=== PATIENT | male | born 1970 | race Caucasian/White ===

== ENCOUNTER 2017-06-24 11:41 | Emergency (ER) | payer SELFPAY ==
--- NOTE | 2017-06-24 11:56 | EDM.PDOC ---
ED HPI GENERAL MEDICAL PROBLEM - General Chief Complaint: Skin Complaint Stated Complaint: FROSTBITE ON FINGERS Time Seen by Provider: 06/24/17 11:47 - History of Present Illness INITIAL COMMENTS - FREE TEXT/NARRATIVE: HISTORY AND PHYSICAL: History of present illness: Patient's 46-year-old male presents with a concern of frostbite involving his fingertips bilateral hand left greater than right this insult occurred approximately 4 days prior to arrival he noticed discoloration in the form of black distally involving multiple digits of both hands he said some discomfort with this he denies other concern Review of systems: As per history of present illness and below otherwise all systems reviewed and negative. Past medical history: As per history of present illness and as reviewed below otherwise noncontributory. Surgical history: As per history of present illness and as reviewed below otherwise noncontributory. Social history: No reported history of drug or alcohol abuse. Family history: As per history of present illness and as reviewed below otherwise noncontributory. Physical exam: HEENT: Atraumatic, normocephalic, pupils reactive, negative for conjunctival pallor or scleral icterus, mucous membranes moist, throat clear, neck supple, nontender, trachea midline. Lungs: Clear to auscultation, breath sounds equal bilaterally, chest nontender. Heart: S1S2, regular, negative for clicks, rubs, or JVD. Abdomen: Soft, nondistended, nontender. Negative for masses or hepatosplenomegaly. Negative for costovertebral tenderness. Pelvis: Stable nontender. Genitourinary: Deferred. Rectal: Deferred. Extremities: Patient has black discoloration noted distal tips of fingers left and right hand primarily second third and fourth digits of both hands neurovascular exam is limited but grossly unremarkable Neuro: Awake, alert, oriented. Cranial nerves II through XII unremarkable. Cerebellum unremarkable. Motor and sensory unremarkable throughout. Exam nonfocal. Diagnostics: None Therapeutics: None Impression: #1 frostbite bilateral fingers Definitive disposition and diagnosis as appropriate pending reevaluation and review of above. ED ROS GENERAL - Review of Systems Review Of Systems: ROS reveals no pertinent complaints other than HPI. ED EXAM, SKIN/RASH Exam: See Below (See dictation) Departure - Departure Time of Disposition: 11:54 Disposition: Home, Self-Care 01 Condition: Good Clinical Impression: Frostbite - Discharge Information Referrals: PCP,None [Primary Care Provider] - Additional Instructions: The following information is given to patients seen in the emergency department who are being discharged to home. This information is to outline your options for follow-up care. We provide all patients seen in our emergency department with a follow-up referral. The need for follow-up, as well as the timing and circumstances, are variable depending upon the specifics of your emergency department visit. If you don't have a primary care physician on staff, we will provide you with a referral. We always advise you to contact your personal physician following an emergency department visit to inform them of the circumstance of the visit and for follow-up with them and/or the need for any referrals to a consulting specialist. The emergency department will also refer you to a specialist when appropriate. This referral assures that you have the opportunity for followup care with a specialist. All of these measure are taken in an effort to provide you with optimal care, which includes your followup. Under all circumstances we always encourage you to contact your private physician who remains a resource for coordinating your care. When calling for followup care, please make the office aware that this follow-up is from your recent emergency room visit. If for any reason you are refused follow-up, please contact the [facility] emergency department at and asked to speak to the emergency department charge nurse. [facility] specialty clinic-Plastics [address] [place] [phone] Follow-up hand surgery above call to schedule appointment Ultram as prescribed avoid cold exposure as discussed and return as needed as discussed
[2017-06-24] MEDS ORDERED: Diphtheria,Pertussis(Acell),Tetanus Vaccine 0.5 ML Syringe IM ONE (12:07)
== END 2017-06-24 12:19 | disposition home or self-care (01) ==
LOC: MW.ED 11:41
DX: T33.532A Superficial frostbite of left finger(s), initial encounter (principal); T33.531A Superficial frostbite of right finger(s), initial encounter; X31.XXXA Exposure to excessive natural cold, initial encounter; Y93.89 Activity, other specified; Y99.0 Civilian activity done for income or pay
CPT/HCPCS: 90471; 90715; 99283; 99283-25

== ENCOUNTER 2017-09-22 06:49 | Day surgery (SDC) | payer OTHER ==
[2017-09-22] MEDS ORDERED: Propofol 200 MG/20 ML SDV ONE (07:15)
[2017-09-22] MEDS ORDERED: Lidocaine 2% 5 ML SDV ONE (07:15)
[2017-09-22] MEDS ORDERED: fentaNYL 250 MCG/5 ML SDV ONE (07:15)
[2017-09-22] MEDS ORDERED: Midazolam 1 MG/ML 2 ML SDV ONE (07:15)
[2017-09-22] MEDS ORDERED: Ondansetron 4 MG/2 ML SDV ONE (07:15)
[2017-09-22] MEDS ORDERED: ceFAZolin/Dextrose,Iso-Osmotic 2 GM/50 ML Duplex Bag IV ONE (07:18)
[2017-09-22] MEDS ORDERED: Bupivacaine 25%/EPINEPHrine/PF 30 ML ONE (07:32)
--- NOTE | 2017-09-22 07:40 | PCM.PREANE ---
Preanesthetic Assessment - Anesthesia/Transfusion/Family Hx Anesthesia History: No Prior Anesthesia Family History of Anesthesia Reaction: No Transfusion History: No Prior Transfusion(s) Intubation History: Unknown - Review of Systems General: No Symptoms Pulmonary: No Symptoms Cardiovascular: No Symptoms Gastrointestinal: No Symptoms Neurological: No Symptoms Other: Reports: None - Physical Assessment O2 Sat by Pulse Oximetry: 98 Respiratory Rate: 18 Vital Signs: Last Vital Signs Temp 36.2 C 09/22/17 07:22 Pulse 107 H 09/22/17 07:22 Resp 18 09/22/17 07:22 BP 149/105 H 09/22/17 07:22 Pulse Ox 98 09/22/17 07:22 Height: 1.78 m Weight: 90.718 kg ASA Class: 2 Mental Status: Alert & Oriented x3 Airway Class: Mallampati = 2 Dentition: Reports: Normal Dentition, Missing Tooth/Teeth (missing 4 teeth front bottom) Thyro-Mental Finger Breadths: 3 Mouth Opening Finger Breadths: 3 ROM/Head Extension: Full Lungs: Clear to Auscultation, Normal Respiratory Effort Cardiovascular: Regular Rate, Regular Rhythm - Allergies Allergies/Adverse Reactions: Allergies Allergy/AdvReac Type Severity Reaction Status Date / Time No Known Allergies Allergy Verified 09/17/17 10:38 - Blood Blood Available: No - Anesthesia Plan Pre-Op Medication Ordered: None - Acknowledgements Anesthesia Type Planned: General Anesthesia Pt an Appropriate Candidate for the Planned Anesthesia: Yes Alternatives and Risks of Anesthesia Discussed w Pt/Guardian: Yes Pt/Guardian Understands and Agrees with Anesthesia Plan: Yes PreAnesthesia Questionnaire HEENT History: Cardiovascular History: Reports: High Cholesterol, Hypertension Other Cardiovascular History: hypertension in the past, not on medication Respiratory History: Gastrointestinal History: Reports: Other (See Below) Other Gastrointestinal History: occasional heartburn Genitourinary History: Musculoskeletal History: Reports: Arthritis Neurological History: Psychiatric History: Endocrine/Metabolic History: Reports: Other (See Below) Other Endocrine/Metabolic History: states borderline diabetic Hematologic History: Immunologic History: Oncologic (Cancer) History: Dermatologic History: Reports: Other (See Below) Other Dermatologic History: presently has left middle finger frostbite necrosis - Infectious Disease History Infectious Disease History: Reports: None - Past Surgical History Head Surgeries/Procedures: Reports: None Male Surgical History: Reports: None - SUBSTANCE USE Smoking Status *Q: Former Smoker (quit 2-3 weeks ago) Tobacco Use Within Last Twelve Months: Cigarettes Recreational Drug Use History: No - HOME MEDS Home Medications: Home Meds traMADol HCl [Tramadol HCl] 1 tab PO ASDIRECTED PRN 09/17/17 [History] - CURRENT (IN HOUSE) MEDS Current Meds: Current Medications Hydrocodone Bitart/Acetaminophen (Grover 325-5 Mg) 1 tab PO Q4H PRN PRN Reason: Pain Bupivacaine HCl/Epinephrine Bitart (Marcaine 0.25%/Epinephrine 1:200,000) 10 ml INJECT ONETIME ONE Stop: 09/22/17 08:01 Cefazolin Sodium/Dextrose 2 gm (/ Premix) 50 mls @ 100 mls/hr IV ONETIME ONE Stop: 09/22/17 08:29 Lactated Ringer's (Ringers, Lactated) 1,000 mls @ 125 mls/hr IV ASDIRECTED NOE Last Admin: 09/22/17 07:25 Dose: 125 mls/hr Discontinued Medications Cefazolin Sodium/Dextrose (Ancef) Confirm Administered Dose 2 gm IV .STK-MED ONE Stop: 09/22/17 07:19 Fentanyl (Sublimaze) Confirm Administered Dose 250 mcg .ROUTE .STK-MED ONE Stop: 09/22/17 07:16 Lidocaine (Xylocaine-Mpf 2%) Confirm Administered Dose 5 ml .ROUTE .STK-MED ONE Stop: 09/22/17 07:16 Midazolam HCl (Versed 1 Mg/Ml) Confirm Administered Dose 2 mg .ROUTE .STK-MED ONE Stop: 09/22/17 07:16 Ondansetron HCl (Zofran) Confirm Administered Dose 4 mg .ROUTE .STK-MED ONE Stop: 09/22/17 07:16 Propofol (Diprivan 20 Ml) Confirm Administered Dose 200 mg .ROUTE .STK-MED ONE Stop: 09/22/17 07:16
[2017-09-22] MEDS ORDERED: Insulin Regular, Human 100 Units/ML 10 ML Vial ONE (07:59)
[2017-09-22] MEDS ORDERED: ceFAZolin 2 GM in Premix Bag 1 BAG IV ONE (08:00)
[2017-09-22] MEDS ORDERED: Acetaminophen/HYDROcodone 325-5 MG Tab PO PRN (08:00)
[2017-09-22] MEDS ORDERED: Bupivacaine 0.25%/EPINEPHrine 1:200,000 10 ML SDV INJECT ONE (08:00)
[2017-09-22] MEDS ORDERED: Lactated Ringers 1,000 ML IV SCH (08:00)
[2017-09-22] MEDS ORDERED: fentaNYL 100 MCG/2 ML SDV IVPUSH PRN (08:37)
--- NOTE | 2017-09-22 09:14 | PCM48HPAN ---
Post Anesthesia Note - EVALUATION WITHIN 48HRS OF ANESTHETIC Vital Signs in Normal Range: Yes Patient Participated in Evaluation: Yes Respiratory Function Stable: Yes Airway Patent: Yes Cardiovascular Function Stable: Yes Hydration Status Stable: Yes Pain Control Satisfactory: Yes Nausea and Vomiting Control Satisfactory: Yes Mental Status Recovered: Yes Resp Rate: 11 - COMMENTS/OBSERVATIONS Free Text/Narrative:: no anesthesia problems
--- NOTE | 2017-09-22 15:49 | PCM.OPNOTE ---
- General Post-Op/Procedure Note Date of Surgery/Procedure: 09/22/17 Operative Procedure(s): Revision amputation left middle finger frostbite necrosis Pre Op Diagnosis: left middle finger frostbite necrosis Post-Op Diagnosis: Same Anesthesia Technique: Local, MAC Primary Surgeon: Maria Isabel Red Head Chopper: Alessandra Dolan Complications: None Condition: Good Free Text/Narrative:: Intake & Output 09/21/17 09/22/17 09/22/17 23:59 07:59 15:59 Intake Total 900 Balance 900 After surgery patient admitted to PO coffee with cream.
--- NOTE | 2017-09-27 10:35 | OR ---
SURGEON: HEIDE MOYA MD DATE OF PROCEDURE: 09/22/2017 PREOPERATIVE DIAGNOSIS: Left middle finger frostbite necrosis. POSTOPERATIVE DIAGNOSIS: Left middle finger frostbite necrosis. PROCEDURE: Revision amputation, left middle finger frostbite necrosis. SCOOP MACHINE OPERATOR: Alessandra Dolan PA-C ANESTHESIA: Local MAC. INDICATIONS: Mr. Chew is a 47-year-old gentleman with distal tip amputation for frostbite necrosis. He is also uncontrolled diabetic and hypertensive. We discussed risks and benefits of wound amputation, and he would like to proceed. We have been doing conservative management, and the risk of continued presence of the necrotic fingertip likely increases the infection risk. We discussed revision and closure. All questions were answered, and he would like to proceed. Risks were including, but not limited to bleeding, infection, damage to underlying or overlying structures, possible need for future intervention, and possible scarring. PROCEDURE IN DETAIL: After informed consent was obtained and placed on the chart, the patient was brought to the operating theater and laid in supine position. After adequate local MAC anesthesia was obtained, the area was prepped and draped, and a time- out was completed to confirm side and site. The arm was exsanguinated, and the tourniquet was insufflated to 200 mmHg. The demarcated skin was cut just proximal to the necrosis, and the distal tip was removed. The middle phalanx was rongeured to appropriate length to allow the healthy skin to close over the top of this. Flexor digitorum superficialis tendon insertion was maintained, and the extensor and flexor tendons of the distal phalanx were left in situ. The skin was then redraped, after traction neurectomies were performed bilaterally, and sutures were placed using 5-0 nylon stitches in a horizontal mattress fashion. The wound was dressed with Xeroform, fluffs, Augie, and a 2-inch Kurt wrap. The patient tolerated the procedure well. All counts and needles were correct at the end of the case. FOLLOWUP INSTRUCTIONS: The patient will see us in approximately 2 weeks, sooner if any problems, questions, or concerns. The wound will be dressed for the next 24-48 hours and will be placed with a Band-Aid after that. He will call if any issues. In addition, of note, the patient did admit, after surgery, to having had oral coffee with cream that morning prior to surgery. Fortunately, this would not affect the care of the patient, and we discussed with him the importance of full disclosure when asked questions in the future. NERI HAN /[id number]
== END 2017-09-22 09:25 | disposition home or self-care (01) ==
LOC: MW.SDS 06:49
PROVIDERS: ATTEND Plastic Surgery
DX: T34.532A Frostbite with tissue necrosis of left finger(s), initial encounter (principal); I10 Essential (primary) hypertension; E11.9 Type 2 diabetes mellitus without complications; F17.210 Nicotine dependence, cigarettes, uncomplicated; Z79.899 Other long term (current) drug therapy; X31.XXXA Exposure to excessive natural cold, initial encounter
CPT/HCPCS: 26951; 82962; 88304; 93005; J0690; J2250; J2405; J3010; J7120; J2704

== ENCOUNTER 2017-10-15 11:29 | Inpatient (IN) | payer OTHER ==
[~2017-10-15 11:29] MED LIST: Bupivacaine 0.25%/EPINEPHrine 1:200,000 10 ML SDV INJECT ONE; Bupivacaine 25%/EPINEPHrine/PF 30 ML ONE; ceFAZolin 2 GM in Premix Bag 1 BAG IV ONE
[2017-10-15] MEDS: Lactated Ringers 1,000 ML IV SCH ×2 (11:45→16:09)
[2017-10-15] MEDS ORDERED: Lidocaine 2% 5 ML SDV ONE (11:50)
[2017-10-15] MEDS ORDERED: Propofol 200 MG/20 ML SDV ONE ×2 (11:52→14:16)
[2017-10-15] MEDS ORDERED: Midazolam 1 MG/ML 2 ML SDV ONE (11:52)
[2017-10-15] MEDS ORDERED: ceFAZolin 1 GM Vial ONE (11:53)
[2017-10-15] MEDS ORDERED: Ondansetron 4 MG/2 ML SDV ONE (11:53)
[2017-10-15] MEDS ORDERED: Sodium Chloride 0.9% 20 ML ONE (11:53)
[2017-10-15] MEDS ORDERED: Ketorolac 30 MG/ML SDV ONE (11:53)
[2017-10-15] MEDS ORDERED: fentaNYL 250 MCG/5 ML SDV ONE (11:53)
--- NOTE | 2017-10-15 13:13 | PCM.PREANE ---
Preanesthetic Assessment - Anesthesia/Transfusion/Family Hx Anesthesia History: Prior Anesthesia Without Reaction Family History of Anesthesia Reaction: No Transfusion History: No Prior Transfusion(s) Intubation History: Unknown - Review of Systems General: Other (infection to L hand) Pulmonary: No Symptoms Cardiovascular: No Symptoms Gastrointestinal: No Symptoms Neurological: No Symptoms Other: Reports: None - Physical Assessment NPO Status Date: 10/14/17 NPO Status Time: 22:00 O2 Sat by Pulse Oximetry: 97 Respiratory Rate: 16 Vital Signs: Last Vital Signs Temp 97.7 F 10/15/17 11:45 Pulse 103 H 10/15/17 11:45 Resp 16 10/15/17 11:45 BP 139/92 H 10/15/17 11:45 Pulse Ox 97 10/15/17 11:45 Height: 5 ft 10 in Weight: 200 lb ASA Class: 3 Mental Status: Alert & Oriented x3 Airway Class: Mallampati = 2 Dentition: Reports: Broken Tooth/Teeth, Missing Tooth/Teeth Thyro-Mental Finger Breadths: 3 Mouth Opening Finger Breadths: 3 ROM/Head Extension: Full Lungs: Clear to Auscultation, Normal Respiratory Effort Cardiovascular: Regular Rate, Regular Rhythm - Lab Values: Laboratory Last Values POC Glucose 396 mg/dL (60-110) H 10/15/17 13:01 - Allergies Allergies/Adverse Reactions: Allergies Allergy/AdvReac Type Severity Reaction Status Date / Time No Known Allergies Allergy Verified 10/14/17 09:52 - Blood Blood Available: No Product(s) Available: None - Anesthesia Plan Free Text/Narrative:: Minimal/moderate sedation with local block per Dr. Red B - last surgery pt did not admit to having coffee with sugar just prior to surgery until after surgery was complete; pt adamantly denies any food or drink since 2200 last night - treated with 5 units IV regular insulin - will recheck in PACU Pre-Op Medication Ordered: Other (insulin - 5 units regular) - Acknowledgements Anesthesia Type Planned: MAC Pt an Appropriate Candidate for the Planned Anesthesia: Yes Alternatives and Risks of Anesthesia Discussed w Pt/Guardian: Yes Pt/Guardian Understands and Agrees with Anesthesia Plan: Yes PreAnesthesia Questionnaire HEENT History: Reports: None Cardiovascular History: Reports: High Cholesterol, Hypertension Other Cardiovascular History: hypertension in the past, not on medication Respiratory History: Gastrointestinal History: Reports: Other (See Below) Other Gastrointestinal History: occasional heartburn - denies any today Genitourinary History: Reports: None Musculoskeletal History: Reports: Arthritis Neurological History: Psychiatric History: Endocrine/Metabolic History: Reports: Diabetes, Type II (does not see a family doctor and does not check BG or take meds - has been >300 on both visits for surgery), Other (See Below) Hematologic History: Immunologic History: Oncologic (Cancer) History: Dermatologic History: Reports: Other (See Below) Other Dermatologic History: presently has infection left hand after ampuation d/ t frostbite - Infectious Disease History Infectious Disease History: Reports: None - Past Surgical History Head Surgeries/Procedures: Reports: None Male Surgical History: Reports: None Musculoskeletal Surgical History: Reports: Other (See Below) Other Musculoskeletal Surgeries/Procedures:: 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 - SUBSTANCE USE Smoking Status *Q: Former Smoker Recreational Drug Use History: No - HOME MEDS Home Medications: Home Meds Antibiotic 1 tab PO BID 10/14/17 [History] oxyCODONE 5 mg PO ASDIRECTED PRN 10/14/17 [History] - CURRENT (IN HOUSE) MEDS Current Meds: Current Medications Lactated Ringer's (Ringers, Lactated) 1,000 mls @ 125 mls/hr IV ASDIRECTED NOE Last Admin: 10/15/17 11:45 Dose: 125 mls/hr Discontinued Medications Bupivacaine HCl/Epinephrine Bitart (Marcaine 0.25%/Epinephrine 1:200,000) 10 ml INJECT ONETIME ONE Stop: 10/15/17 08:01 Cefazolin Sodium (Ancef) Confirm Administered Dose 2 gm .ROUTE .STK-MED ONE Stop: 10/15/17 11:54 Fentanyl (Sublimaze) Confirm Administered Dose 250 mcg .ROUTE .STK-MED ONE Stop: 10/15/17 11:54 Cefazolin Sodium/Dextrose 2 gm (/ Premix) 50 mls @ 100 mls/hr IV ONETIME ONE Stop: 10/15/17 08:29 Bupivacaine HCl/Epinephrine Bitart (Sensorc Mpf 0.25%-Epi 1:[id number]) Confirm Administered Dose 30 mls @ as directed .ROUTE .STK-MED ONE Stop: 10/15/17 07:25 Sodium Chloride (Normal Saline) Confirm Administered Dose 20 mls @ as directed .ROUTE .STK-MED ONE Stop: 10/15/17 11:54 Ketorolac Tromethamine (Toradol) Confirm Administered Dose 30 mg .ROUTE .STK- MED ONE Stop: 10/15/17 11:54 Lidocaine (Xylocaine-Mpf 2%) Confirm Administered Dose 5 ml .ROUTE .STK-MED ONE Stop: 10/15/17 11:51 Midazolam HCl (Versed 1 Mg/Ml) Confirm Administered Dose 2 mg .ROUTE .STK-MED ONE Stop: 10/15/17 11:53 Ondansetron HCl (Zofran) Confirm Administered Dose 4 mg .ROUTE .STK-MED ONE Stop: 10/15/17 11:54 Propofol (Diprivan 20 Ml) Confirm Administered Dose 200 mg .ROUTE .STK-MED ONE Stop: 10/15/17 11:53
[2017-10-15] MEDS ORDERED: fentaNYL 100 MCG/2 ML SDV IVPUSH PRN (14:20)
--- NOTE | 2017-10-15 14:56 | PCM.POSTAN ---
POST ANESTHESIA ASSESSMENT - MENTAL STATUS Mental Status: Alert, Oriented Free Text/Narrative:: Patient will be admitted for medical management. Probable diabetic ketoacidosis diagnosis is entertained. Stable vitals. - RESPIRATORY Respiratory Status: Respiratory Rate WNL, Airway Patent, O2 Saturation Stable - CARDIOVASCULAR CV Status: Pulse Rate WNL, Blood Pressure Stable - GASTROINTESTINAL GI Status: No Symptoms - POST OP HYDRATION Hydration Status: Adequate & Stable
[2017-10-15] MEDS ORDERED: Ondansetron 4 MG Tab.DIS PO PRN (15:04)
--- NOTE | 2017-10-15 15:08 | PCM.OPNOTE ---
- General Post-Op/Procedure Note Date of Surgery/Procedure: 10/15/17 Operative Procedure(s): incision and drainage of flexor tenosynovitis of left middle finger with left carpal tunnel release Pre Op Diagnosis: left hand finger infection tracking along tendon Post-Op Diagnosis: Same Anesthesia Technique: Local, MAC Primary Surgeon: Maria Isabel Red Complications: None Condition: Fair Free Text/Narrative:: Noncompliant patient with significantly elevated Blood sugar and dehydration - concerns for ketoacidosis and will admit for assistance from hospitalist for blood sugar control as well as IV antibiotics and rehydration.
--- NOTE | 2017-10-15 15:13 | PCM.SN ---
- Free Text/Narrative Note: H&P on chart - from [facility]
--- NOTE | 2017-10-15 15:47 | PCM.CONS ---
H&P History of Present Illness - General Date of Service: 10/15/17 Admit Problem/Dx: Admission Diagnosis/Problem Admission Diagnosis/Problem Tenosynovitis of finger, hand, or wrist - History of Present Illness Initial Comments - Free Text/Narative: 47 yo male with history of Uncontrolled NIDDM and non-adherence to treatment is admitted for Left Hand Abscess. The abscess is presumed to be caused from frostbite which the patient experienced April 2017. He states that following the frosbite he developed taylor discoloration He was admitted under plastic surgery and underwent I&D of left hand today. He has a known history of non- adherence to therapy and was found to have HbA1C of 12.5% with BG levels ranging from 300-400. Medicine has been consulted for management of Uncontrolled diabetes and hyperglycemia. Patient states his diabetes was diagnosed several years ago. He last saw a physican for this 1.5 years ago and was started on Metformin. He states he did not tolerate the side effects and therefore discontinued it on his own after a short while of being on it. Since then he has not been on any meds for his DM. He deneis ever being on insulin in the past. His associated symptoms include numbness of BL hands and feet, nocturia, blurry vision which he states occurred after he was prescribed Lyrica 1 month ago by a provider. He also admits to a history of HTN for which he was prescribed a medication which he also did not take. He has a 20 pack year smoking history but quit about 1 month ago. He denies alcohol use. He does not own a glucometer at home. Onset of Symptoms: Reports: Today Left Middle 3-Middle finger Pain Score (Numeric/FACES): 2 - Related Data Allergies/Adverse Reactions: Allergies Allergy/AdvReac Type Severity Reaction Status Date / Time No Known Allergies Allergy Verified 10/15/17 14:31 Home Medications: Home Meds Antibiotic 1 tab PO BID 10/14/17 [History] oxyCODONE 5 mg PO ASDIRECTED PRN 10/14/17 [History] Clindamycin HCl 300 mg PO Q6H #40 capsule 10/15/17 [Rx] Past Medical History HEENT History: Reports: None Cardiovascular History: Reports: High Cholesterol, Hypertension Other Cardiovascular History: hypertension in the past, not on medication Respiratory History: Gastrointestinal History: Reports: Other (See Below) Other Gastrointestinal History: occasional heartburn - denies any today Genitourinary History: Reports: None Musculoskeletal History: Reports: Arthritis Neurological History: Psychiatric History: Endocrine/Metabolic History: Reports: Diabetes, Type II (does not see a family doctor and does not check BG or take meds - has been >300 on both visits for surgery), Other (See Below) Other Endocrine/Metabolic History: borderline diabetic Hematologic History: Immunologic History: Oncologic (Cancer) History: Dermatologic History: Reports: Other (See Below) Other Dermatologic History: presently has infection left hand after ampuation d/ t frostbite - Infectious Disease History Infectious Disease History: Reports: None - Past Surgical History Head Surgeries/Procedures: Reports: None Male Surgical History: Reports: None Musculoskeletal Surgical History: Reports: Other (See Below) Other Musculoskeletal Surgeries/Procedures:: 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 Social & Family History - Tobacco Use Smoking Status *Q: Former Smoker Used Tobacco, but Quit: Yes Month/Year Tobacco Last Used: quit smoking 1 month ago - Caffeine Use Caffeine Use: Reports: Coffee, Other - Recreational Drug Use Recreational Drug Use: No H&P Review of Systems - Review of Systems: Review Of Systems: See Below General: Reports: No Symptoms HEENT: Reports: Visual Changes Pulmonary: Reports: No Symptoms. Denies: Shortness of Breath Cardiovascular: Reports: No Symptoms. Denies: Chest Pain, Palpitations Gastrointestinal: Reports: No Symptoms. Denies: Abdominal Pain, Nausea, Vomiting Genitourinary: Reports: Other (nocturia). Denies: Dysuria, Frequency, Burning, Pain, Urgency, Incontinence Musculoskeletal: Reports: Foot Pain Skin: Reports: Wound Psychiatric: Reports: No Symptoms Neurological: Reports: Numbness, Tingling Exam - Exam Exam: See Below - Vital Signs Vital Signs: Last Vital Signs Temp 37.1 C 10/15/17 14:40 Pulse 103 H 10/15/17 14:50 Resp 14 10/15/17 14:50 BP 121/83 10/15/17 14:50 Pulse Ox 95 10/15/17 14:50 Weight: 90.718 kg - Exam General: Alert, Oriented, Cooperative HEENT: Conjunctiva Clear, EACs Clear, EOMI, Hearing Intact, Mucosa Moist & Nickerson , Nares Patent, Normal Nasal Septum, Posterior Pharynx Clear, Pupils Equal, Pupils Reactive Neck: Supple, Trachea Midline Lungs: Clear to Auscultation, Normal Respiratory Effort GI/Abdominal Exam: Normal Bowel Sounds, Soft, Non-Tender, No Distention Extremities: No Pedal Edema, Normal Capillary Refill, Other (left hand dressing intact ) Neurological: Cranial Nerves Intact Psychiatric: Alert, Normal Affect, Normal Mood - Patient Data Lab Results Last 24 hrs: Laboratory Results - last 24 hr 10/15/17 10/15/17 10/15/17 Range/Units 13:01 13:33 13:33 WBC (4.0-11.0) K/uL RBC (4.50-5.90) M/uL Hgb (13.0-17.0) g/dL Hct (38.0-50.0) % MCV (80.0-98.0) fL MCH (27.0-32.0) pg MCHC (31.0-37.0) g/dL RDW Std Deviation (28.0-62.0) fl RDW Coeff of Juan Alberto (11.0-15.0) % Plt Count (150-400) K/uL MPV (7.40-12.00) fL Neut % (Auto) (48.0-80.0) % Lymph % (Auto) (16.0-40.0) % Irion % (Auto) (0.0-15.0) % Eos % (Auto) (0.0-7.0) % Baso % (Auto) (0.0-1.5) % Neut # (Auto) (1.4-5.7) K/uL Lymph # (Auto) (0.6-2.4) K/uL Irion # (Auto) (0.0-0.8) K/uL Eos # (Auto) (0.0-0.7) K/uL Baso # (Auto) (0.0-0.1) K/uL Nucleated RBC % /100WBC Nucleated RBCs # K/uL ABG pH (7.35-7.45) ABG pCO2 (35-45) mmHG ABG pO2 (75-100) mmHG ABG HCO3 (22-26) mEq/L ABG Total CO2 ABG Base Excess (-2.0-2.0) Lactate (0.20-2.00) mmol/L Sodium 129 L (136-148) mmol/L Potassium 4.2 (3.5-5.1) mmol/L Chloride 97 L (98-107) mmol/L Carbon Dioxide 25.8 (21.0-32.0) mmol/L BUN 25 H (7.0-18.0) mg/dL Creatinine 1.7 H (0.8-1.3) mg/dL Est Cr Clr Drug Dosing 55.47 mL/min Estimated GFR (MDRD) 43.4 ml/min Glucose 364 H (74-106) mg/dL POC Glucose 396 H (60-110) mg/dL Hemoglobin A1c 12.5 H (4.5-6.2) % Calcium 8.5 (8.5-10.1) mg/dL Magnesium 1.9 (1.5-2.0) mg/dL Total Bilirubin 0.3 (0.2-1.0) mg/dL AST 18 (15-37) IU/L ALT 21 (14-63) IU/L Alkaline Phosphatase 126 H (46-116) U/L Total Protein 6.1 L (6.4-8.2) g/dL Albumin 1.8 L (3.4-5.0) g/dL Globulin 4.3 H (2.0-3.5) g/dL Albumin/Globulin Ratio 0.4 L (1.3-2.8) Ketones (NEG) 10/15/17 10/15/17 10/15/17 Range/Units 13:33 13:33 14:30 WBC 9.92 (4.0-11.0) K/uL RBC 4.69 (4.50-5.90) M/uL Hgb 13.5 (13.0-17.0) g/dL Hct 38.3 (38.0-50.0) % MCV 81.7 (80.0-98.0) fL MCH 28.8 (27.0-32.0) pg MCHC 35.2 (31.0-37.0) g/dL RDW Std Deviation 36.7 (28.0-62.0) fl RDW Coeff of Juan Alberto 12 (11.0-15.0) % Plt Count 186 (150-400) K/uL MPV 11.50 (7.40-12.00) fL Neut % (Auto) 72.9 (48.0-80.0) % Lymph % (Auto) 18.0 (16.0-40.0) % Irion % (Auto) 6.7 (0.0-15.0) % Eos % (Auto) 2.2 (0.0-7.0) % Baso % (Auto) 0.2 (0.0-1.5) % Neut # (Auto) 7.2 H (1.4-5.7) K/uL Lymph # (Auto) 1.8 (0.6-2.4) K/uL Irion # (Auto) 0.7 (0.0-0.8) K/uL Eos # (Auto) 0.2 (0.0-0.7) K/uL Baso # (Auto) 0.0 (0.0-0.1) K/uL Nucleated RBC % 0.0 /100WBC Nucleated RBCs # 0 K/uL ABG pH (7.35-7.45) ABG pCO2 (35-45) mmHG ABG pO2 (75-100) mmHG ABG HCO3 (22-26) mEq/L ABG Total CO2 ABG Base Excess (-2.0-2.0) Lactate 0.9 (0.20-2.00) mmol/L Sodium (136-148) mmol/L Potassium (3.5-5.1) mmol/L Chloride (98-107) mmol/L Carbon Dioxide (21.0-32.0) mmol/L BUN (7.0-18.0) mg/dL Creatinine (0.8-1.3) mg/dL Est Cr Clr Drug Dosing mL/min Estimated GFR (MDRD) ml/min Glucose (74-106) mg/dL POC Glucose (60-110) mg/dL Hemoglobin A1c (4.5-6.2) % Calcium (8.5-10.1) mg/dL Magnesium (1.5-2.0) mg/dL Total Bilirubin (0.2-1.0) mg/dL AST (15-37) IU/L ALT (14-63) IU/L Alkaline Phosphatase (46-116) U/L Total Protein (6.4-8.2) g/dL Albumin (3.4-5.0) g/dL Globulin (2.0-3.5) g/dL Albumin/Globulin Ratio (1.3-2.8) Ketones NEGATIVE (NEG) 10/15/17 10/15/17 Range/Units 14:30 14:47 WBC (4.0-11.0) K/uL RBC (4.50-5.90) M/uL Hgb (13.0-17.0) g/dL Hct (38.0-50.0) % MCV (80.0-98.0) fL MCH (27.0-32.0) pg MCHC (31.0-37.0) g/dL RDW Std Deviation (28.0-62.0) fl RDW Coeff of Juan Alberto (11.0-15.0) % Plt Count (150-400) K/uL MPV (7.40-12.00) fL Neut % (Auto) (48.0-80.0) % Lymph % (Auto) (16.0-40.0) % Irion % (Auto) (0.0-15.0) % Eos % (Auto) (0.0-7.0) % Baso % (Auto) (0.0-1.5) % Neut # (Auto) (1.4-5.7) K/uL Lymph # (Auto) (0.6-2.4) K/uL Irion # (Auto) (0.0-0.8) K/uL Eos # (Auto) (0.0-0.7) K/uL Baso # (Auto) (0.0-0.1) K/uL Nucleated RBC % /100WBC Nucleated RBCs # K/uL ABG pH 7.401 (7.35-7.45) ABG pCO2 43 (35-45) mmHG ABG pO2 91 (75-100) mmHG ABG HCO3 26 (22-26) mEq/L ABG Total CO2 24.0 ABG Base Excess 1.4 (-2.0-2.0) Lactate (0.20-2.00) mmol/L Sodium (136-148) mmol/L Potassium (3.5-5.1) mmol/L Chloride (98-107) mmol/L Carbon Dioxide (21.0-32.0) mmol/L BUN (7.0-18.0) mg/dL Creatinine (0.8-1.3) mg/dL Est Cr Clr Drug Dosing mL/min Estimated GFR (MDRD) ml/min Glucose (74-106) mg/dL POC Glucose 314 H (60-110) mg/dL Hemoglobin A1c (4.5-6.2) % Calcium (8.5-10.1) mg/dL Magnesium (1.5-2.0) mg/dL Total Bilirubin (0.2-1.0) mg/dL AST (15-37) IU/L ALT (14-63) IU/L Alkaline Phosphatase (46-116) U/L Total Protein (6.4-8.2) g/dL Albumin (3.4-5.0) g/dL Globulin (2.0-3.5) g/dL Albumin/Globulin Ratio (1.3-2.8) Ketones (NEG) Result Diagrams: 10/15/17 13:33 10/15/17 13:33 Consult PN Assessment/Plan Procedures: Procedures AMPUTATION OF FINGER/THUMB (09/22/17) ELECTROCARDIOGRAM TRACING (09/22/17) EMERGENCY DEPT VISIT (06/24/17) GLUCOSE BLOOD TEST (09/22/17) IMMUNIZATION ADMIN (06/24/17) TDAP VACCINE 7 YRS/> IM (06/24/17) TISSUE EXAM BY PATHOLOGIST (09/22/17) Problem List Initiated/Reviewed/Updated: Yes Plan: 47 yo male with history of Uncontrolled NIDDM and non-adherence admitted for left hand abscess. Patient admitted to Plastic Surgery. Medicine consulted for Hyperglycemia and Uncontrolled Diabetes. #Hyperglycemia #NIDDM, Uncontrolled #Non-adherence to treatment -Patient previously Metformin which he discontinued on his own -HbA1C 12.5% -BG ranging from 300-400 on current admission Plan: -initiate insulin regimen suitable for discharge -start Insulin 0.4 units/kg divided into basal and prandial doses -Lantus 15 units QD -Novolog 7 units TIDAC -monitor BG TIDAC & BEDTIME -goal during hospitalization BG<180 -provided DM education -consult DM educatior for possible glucometer, samples and further education
[2017-10-15] MEDS: Piperacillin/Tazobactam 3.375 GM in Sodium Chloride 0.9% 50 ML IV SCH ×2 (16:10→21:24)
[2017-10-15] MEDS: Insulin Glargine,Human Rec. Analog 100 Units/ML 3 ML Pen SUBCUT SCH (18:08)
[2017-10-15] MEDS: oxyCODONE 5 MG Tab PO PRN ×2 (19:19→23:43)
[2017-10-15] MEDS: Morphine 4 MG/ML Syringe IVPUSH PRN ×2 (20:59→22:58)
[2017-10-15] MEDS: diphenhydrAMINE 25 MG Cap PO PRN (23:01)
[2017-10-15] MEDS ORDERED: Ibuprofen 800 MG Tab PO PRN (23:53)
[2017-10-16] MEDS: Acetaminophen 325 MG Tab PO PRN (00:04)
[2017-10-16] MEDS: Lactated Ringers 1,000 ML IV SCH ×2 (01:22→10:37)
[2017-10-16] MEDS: Piperacillin/Tazobactam 3.375 GM in Sodium Chloride 0.9% 50 ML IV SCH ×4 (03:46→21:17)
[2017-10-16] MEDS: Morphine 4 MG/ML Syringe IVPUSH PRN ×4 (03:47→20:13)
[2017-10-16] MEDS: oxyCODONE 5 MG Tab PO PRN (07:13)
[2017-10-16] MEDS: Insulin Aspart 100 Units/ML 3 ML Pen SUBCUT SCH ×3 (07:15→17:17)
--- NOTE | 2017-10-16 08:42 | PCM.CONSN ---
- General Info Date of Service: 10/16/17 Admission Dx/Problem (Free Text): Admission Diagnosis/Problem Admission Diagnosis/Problem Tenosynovitis of finger, hand, or wrist Functional Status: Reports: Pain Controlled, Tolerating Diet, Ambulating, Urinating - Review of Systems General: Reports: No Symptoms HEENT: Reports: No Symptoms Pulmonary: Reports: No Symptoms Cardiovascular: Reports: No Symptoms Gastrointestinal: Reports: No Symptoms Genitourinary: Reports: No Symptoms Musculoskeletal: Reports: Foot Pain Skin: Reports: No Symptoms Neurological: Reports: Numbness, Tingling Psychiatric: Reports: No Symptoms - Patient Data Vitals - Most Recent: Last Vital Signs Temp 37.0 C 10/16/17 07:50 Pulse 92 10/16/17 07:50 Resp 21 H 10/16/17 07:50 BP 149/94 H 10/16/17 07:50 Pulse Ox 95 10/16/17 07:50 Weight - Most Recent: 90.718 kg I&O - Last 24 Hours: Intake & Output 10/15/17 10/16/17 10/16/17 22:59 06:59 14:59 Intake Total 550 3154 Output Total 0 1000 Balance 550 2154 Lab Results Last 24 Hours: Laboratory Results - last 24 hr 10/15/17 10/15/17 10/15/17 Range/Units 13:01 13:33 13:33 WBC (4.0-11.0) K/uL RBC (4.50-5.90) M/uL Hgb (13.0-17.0) g/dL Hct (38.0-50.0) % MCV (80.0-98.0) fL MCH (27.0-32.0) pg MCHC (31.0-37.0) g/dL RDW Std Deviation (28.0-62.0) fl RDW Coeff of Juan Alberto (11.0-15.0) % Plt Count (150-400) K/uL MPV (7.40-12.00) fL Neut % (Auto) (48.0-80.0) % Lymph % (Auto) (16.0-40.0) % Schley % (Auto) (0.0-15.0) % Eos % (Auto) (0.0-7.0) % Baso % (Auto) (0.0-1.5) % Neut # (Auto) (1.4-5.7) K/uL Lymph # (Auto) (0.6-2.4) K/uL Schley # (Auto) (0.0-0.8) K/uL Eos # (Auto) (0.0-0.7) K/uL Baso # (Auto) (0.0-0.1) K/uL Nucleated RBC % /100WBC Nucleated RBCs # K/uL ABG pH (7.35-7.45) ABG pCO2 (35-45) mmHG ABG pO2 (75-100) mmHG ABG HCO3 (22-26) mEq/L ABG Total CO2 ABG Base Excess (-2.0-2.0) Lactate (0.20-2.00) mmol/L Sodium 129 L (136-148) mmol/L Potassium 4.2 (3.5-5.1) mmol/L Chloride 97 L (98-107) mmol/L Carbon Dioxide 25.8 (21.0-32.0) mmol/L BUN 25 H (7.0-18.0) mg/dL Creatinine 1.7 H (0.8-1.3) mg/dL Est Cr Clr Drug Dosing 55.47 mL/min Estimated GFR (MDRD) 43.4 ml/min Glucose 364 H (74-106) mg/dL POC Glucose 396 H (60-110) mg/dL Hemoglobin A1c 12.5 H (4.5-6.2) % Calcium 8.5 (8.5-10.1) mg/dL Magnesium 1.9 (1.5-2.0) mg/dL Total Bilirubin 0.3 (0.2-1.0) mg/dL AST 18 (15-37) IU/L ALT 21 (14-63) IU/L Alkaline Phosphatase 126 H (46-116) U/L Total Protein 6.1 L (6.4-8.2) g/dL Albumin 1.8 L (3.4-5.0) g/dL Globulin 4.3 H (2.0-3.5) g/dL Albumin/Globulin Ratio 0.4 L (1.3-2.8) Ketones (NEG) 05/11/18 05/11/18 05/11/18 Range/Units 13:33 13:33 14:30 WBC 9.92 (4.0-11.0) K/uL RBC 4.69 (4.50-5.90) M/uL Hgb 13.5 (13.0-17.0) g/dL Hct 38.3 (38.0-50.0) % MCV 81.7 (80.0-98.0) fL MCH 28.8 (27.0-32.0) pg MCHC 35.2 (31.0-37.0) g/dL RDW Std Deviation 36.7 (28.0-62.0) fl RDW Coeff of Juan Alberto 12 (11.0-15.0) % Plt Count 186 (150-400) K/uL MPV 11.50 (7.40-12.00) fL Neut % (Auto) 72.9 (48.0-80.0) % Lymph % (Auto) 18.0 (16.0-40.0) % Schley % (Auto) 6.7 (0.0-15.0) % Eos % (Auto) 2.2 (0.0-7.0) % Baso % (Auto) 0.2 (0.0-1.5) % Neut # (Auto) 7.2 H (1.4-5.7) K/uL Lymph # (Auto) 1.8 (0.6-2.4) K/uL Schley # (Auto) 0.7 (0.0-0.8) K/uL Eos # (Auto) 0.2 (0.0-0.7) K/uL Baso # (Auto) 0.0 (0.0-0.1) K/uL Nucleated RBC % 0.0 /100WBC Nucleated RBCs # 0 K/uL ABG pH (7.35-7.45) ABG pCO2 (35-45) mmHG ABG pO2 (75-100) mmHG ABG HCO3 (22-26) mEq/L ABG Total CO2 ABG Base Excess (-2.0-2.0) Lactate 0.9 (0.20-2.00) mmol/L Sodium (136-148) mmol/L Potassium (3.5-5.1) mmol/L Chloride (98-107) mmol/L Carbon Dioxide (21.0-32.0) mmol/L BUN (7.0-18.0) mg/dL Creatinine (0.8-1.3) mg/dL Est Cr Clr Drug Dosing mL/min Estimated GFR (MDRD) ml/min Glucose (74-106) mg/dL POC Glucose (60-110) mg/dL Hemoglobin A1c (4.5-6.2) % Calcium (8.5-10.1) mg/dL Magnesium (1.5-2.0) mg/dL Total Bilirubin (0.2-1.0) mg/dL AST (15-37) IU/L ALT (14-63) IU/L Alkaline Phosphatase (46-116) U/L Total Protein (6.4-8.2) g/dL Albumin (3.4-5.0) g/dL Globulin (2.0-3.5) g/dL Albumin/Globulin Ratio (1.3-2.8) Ketones NEGATIVE (NEG) 10/15/17 10/15/17 10/15/17 Range/Units 14:30 14:47 16:21 WBC (4.0-11.0) K/uL RBC (4.50-5.90) M/uL Hgb (13.0-17.0) g/dL Hct (38.0-50.0) % MCV (80.0-98.0) fL MCH (27.0-32.0) pg MCHC (31.0-37.0) g/dL RDW Std Deviation (28.0-62.0) fl RDW Coeff of Juan Alberto (11.0-15.0) % Plt Count (150-400) K/uL MPV (7.40-12.00) fL Neut % (Auto) (48.0-80.0) % Lymph % (Auto) (16.0-40.0) % Schley % (Auto) (0.0-15.0) % Eos % (Auto) (0.0-7.0) % Baso % (Auto) (0.0-1.5) % Neut # (Auto) (1.4-5.7) K/uL Lymph # (Auto) (0.6-2.4) K/uL Schley # (Auto) (0.0-0.8) K/uL Eos # (Auto) (0.0-0.7) K/uL Baso # (Auto) (0.0-0.1) K/uL Nucleated RBC % /100WBC Nucleated RBCs # K/uL ABG pH 7.401 (7.35-7.45) ABG pCO2 43 (35-45) mmHG ABG pO2 91 (75-100) mmHG ABG HCO3 26 (22-26) mEq/L ABG Total CO2 24.0 ABG Base Excess 1.4 (-2.0-2.0) Lactate (0.20-2.00) mmol/L Sodium (136-148) mmol/L Potassium (3.5-5.1) mmol/L Chloride (98-107) mmol/L Carbon Dioxide (21.0-32.0) mmol/L BUN (7.0-18.0) mg/dL Creatinine (0.8-1.3) mg/dL Est Cr Clr Drug Dosing mL/min Estimated GFR (MDRD) ml/min Glucose (74-106) mg/dL POC Glucose 314 H 347 H (60-110) mg/dL Hemoglobin A1c (4.5-6.2) % Calcium (8.5-10.1) mg/dL Magnesium (1.5-2.0) mg/dL Total Bilirubin (0.2-1.0) mg/dL AST (15-37) IU/L ALT (14-63) IU/L Alkaline Phosphatase (46-116) U/L Total Protein (6.4-8.2) g/dL Albumin (3.4-5.0) g/dL Globulin (2.0-3.5) g/dL Albumin/Globulin Ratio (1.3-2.8) Ketones (NEG) 10/16/17 10/16/17 Range/Units 06:01 08:08 WBC 14.51 H (4.0-11.0) K/uL RBC 4.16 L (4.50-5.90) M/uL Hgb 12.0 L (13.0-17.0) g/dL Hct 34.6 L (38.0-50.0) % MCV 83.2 (80.0-98.0) fL MCH 28.8 (27.0-32.0) pg MCHC 34.7 (31.0-37.0) g/dL RDW Std Deviation 37.5 (28.0-62.0) fl RDW Coeff of Juan Alberto 12 (11.0-15.0) % Plt Count 192 (150-400) K/uL MPV 10.80 (7.40-12.00) fL Neut % (Auto) 73.5 (48.0-80.0) % Lymph % (Auto) 17.6 (16.0-40.0) % Schley % (Auto) 7.4 (0.0-15.0) % Eos % (Auto) 1.3 (0.0-7.0) % Baso % (Auto) 0.2 (0.0-1.5) % Neut # (Auto) 10.7 H (1.4-5.7) K/uL Lymph # (Auto) 2.6 H (0.6-2.4) K/uL Schley # (Auto) 1.1 H (0.0-0.8) K/uL Eos # (Auto) 0.2 (0.0-0.7) K/uL Baso # (Auto) 0.0 (0.0-0.1) K/uL Nucleated RBC % 0.0 /100WBC Nucleated RBCs # 0 K/uL ABG pH (7.35-7.45) ABG pCO2 (35-45) mmHG ABG pO2 (75-100) mmHG ABG HCO3 (22-26) mEq/L ABG Total CO2 ABG Base Excess (-2.0-2.0) Lactate (0.20-2.00) mmol/L Sodium (136-148) mmol/L Potassium (3.5-5.1) mmol/L Chloride (98-107) mmol/L Carbon Dioxide (21.0-32.0) mmol/L BUN (7.0-18.0) mg/dL Creatinine (0.8-1.3) mg/dL Est Cr Clr Drug Dosing mL/min Estimated GFR (MDRD) ml/min Glucose (74-106) mg/dL POC Glucose 247 H (60-110) mg/dL Hemoglobin A1c (4.5-6.2) % Calcium (8.5-10.1) mg/dL Magnesium (1.5-2.0) mg/dL Total Bilirubin (0.2-1.0) mg/dL AST (15-37) IU/L ALT (14-63) IU/L Alkaline Phosphatase (46-116) U/L Total Protein (6.4-8.2) g/dL Albumin (3.4-5.0) g/dL Globulin (2.0-3.5) g/dL Albumin/Globulin Ratio (1.3-2.8) Ketones (NEG) Med Orders - Current: Current Medications Acetaminophen (Tylenol) 650 mg PO Q6H PRN PRN Reason: Fever Last Admin: 10/16/17 00:04 Dose: 650 mg Diphenhydramine HCl (Benadryl) 25 mg PO Q6H PRN PRN Reason: Itching Last Admin: 10/15/17 23:01 Dose: 25 mg Lactated Ringer's (Ringers, Lactated) 1,000 mls @ 125 mls/hr IV ASDIRECTED [facility] Last Admin: 10/16/17 01:22 Dose: 125 mls/hr Piperacillin Sod/Tazobactam (Sod 3.375 gm/ Sodium Chloride) 50 mls @ 100 mls/ hr IV Q6H [facility] Last Admin: 10/16/17 03:46 Dose: 100 mls/hr Ibuprofen (Motrin) 800 mg PO Q6H PRN PRN Reason: Pain Insulin Aspart (Novolog) 7 unit SUBCUT TIDAC [facility] Last Admin: 10/16/17 07:15 Dose: 7 units Insulin Glargine (Lantus Solostar) 15 units SUBCUT DAILY [facility] Last Admin: 10/15/17 18:08 Dose: 15 units Morphine Sulfate (Morphine) 2 - 4 mg IVPUSH Q2H PRN PRN Reason: Pain Last Admin: 10/16/17 03:47 Dose: 4 mg Ondansetron HCl (Zofran Odt) 4 mg PO Q4H PRN PRN Reason: Nausea/Vomiting Oxycodone HCl (Oxycodone) 5 - 10 mg PO Q3H PRN PRN Reason: Pain Last Admin: 10/16/17 07:13 Dose: 10 mg Discontinued Medications Bupivacaine HCl/Epinephrine Bitart (Marcaine 0.25%/Epinephrine 1:200,000) 10 ml INJECT ONETIME ONE Stop: 10/15/17 08:01 Last Admin: 10/15/17 15:14 Dose: Not Given Cefazolin Sodium (Ancef) Confirm Administered Dose 2 gm .ROUTE .STK-MED ONE Stop: 10/15/17 11:54 Fentanyl (Sublimaze) Confirm Administered Dose 250 mcg .ROUTE .STK-MED ONE Stop: 10/15/17 11:54 Fentanyl (Sublimaze) 50 mcg IVPUSH .Q5MIN PRN PRN Reason: Pain Cefazolin Sodium/Dextrose 2 gm (/ Premix) 50 mls @ 100 mls/hr IV ONETIME ONE Stop: 10/15/17 08:29 Last Admin: 10/15/17 15:14 Dose: Not Given Bupivacaine HCl/Epinephrine Bitart (Sensorc Mpf 0.25%-Epi 1:[id number]) Confirm Administered Dose 30 mls @ as directed .ROUTE .STK-MED ONE Stop: 10/15/17 07:25 Sodium Chloride (Normal Saline) Confirm Administered Dose 20 mls @ as directed .ROUTE .STK-MED ONE Stop: 10/15/17 11:54 Ketorolac Tromethamine (Toradol) Confirm Administered Dose 30 mg .ROUTE .STK- MED ONE Stop: 10/15/17 11:54 Lidocaine (Xylocaine-Mpf 2%) Confirm Administered Dose 5 ml .ROUTE .STK-MED ONE Stop: 10/15/17 11:51 Midazolam HCl (Versed 1 Mg/Ml) Confirm Administered Dose 2 mg .ROUTE .STK-MED ONE Stop: 10/15/17 11:53 Morphine Sulfate (Morphine) 2 mg IVPUSH Q2H PRN PRN Reason: Pain Last Admin: 10/15/17 22:58 Dose: 2 mg Ondansetron HCl (Zofran) Confirm Administered Dose 4 mg .ROUTE .STK-MED ONE Stop: 10/15/17 11:54 Oxycodone HCl (Oxycodone) 5 mg PO Q3H PRN PRN Reason: Pain Last Admin: 10/15/17 23:43 Dose: 5 mg Propofol (Diprivan 20 Ml) Confirm Administered Dose 200 mg .ROUTE .STK-MED ONE Stop: 10/15/17 11:53 Propofol (Diprivan 20 Ml) Confirm Administered Dose 200 mg .ROUTE .STK-MED ONE Stop: 10/15/17 14:17 - Exam General: Alert, Oriented HEENT: Pupils Equal, Pupils Reactive, EOMI, Mucous Membr. Moist/[place] Neck: Supple Lungs: Clear to Auscultation, Normal Respiratory Effort Cardiovascular: Regular Rate, Regular Rhythm GI/Abdominal Exam: Normal Bowel Sounds, Soft, Non-Tender, No Organomegaly Extremities: Other (left hand dressing intact) Neurological: No: Sensation Intact (diminished at BL plantar surfaces ) Psy/Mental Status: Alert, Normal Affect, Normal Mood Consult PN Assessment/Plan Procedures: Procedures AMPUTATION OF FINGER/THUMB (09/22/17) ELECTROCARDIOGRAM TRACING (09/22/17) EMERGENCY DEPT VISIT (06/24/17) GLUCOSE BLOOD TEST (09/22/17) IMMUNIZATION ADMIN (06/24/17) TDAP VACCINE 7 YRS/> IM (06/24/17) TISSUE EXAM BY PATHOLOGIST (09/22/17) Problem List Initiated/Reviewed/Updated: Yes My Orders Last 24 Hours: My Active Orders 10/15/17 17:38 Consult to Primary Teaching Assistant [Consult to Diabetic Nurse Specialist] [CONS] Routine 10/15/17 17:45 Insulin Glarg,Human.Rec.Analog [LantUS Solostar] 15 units SUBCUT DAILY 10/16/17 07:30 Insulin Aspart [NovoLOG] 7 unit SUBCUT TIDAC Plan: 47 yo male with history of Uncontrolled NIDDM and non-adherence admitted for left hand abscess. Patient admitted to Plastic Surgery. Medicine consulted for Hyperglycemia and Uncontrolled Diabetes. #Hyperglycemia #NIDDM, Uncontrolled #Non-adherence to treatment -Patient previously Metformin which he discontinued on his own -HbA1C 12.5%, BG ranging from 300-400 at admission -started on Lantus 15 units QD & Novolog 7 units TIDAC -pre-meal BG 230-250 since initiating insulin Plan: -Increase Lantus to 17 units QD -continue novolog 7 units TIDAC -monitor BG TIDAC & BEDTIME -goal during hospitalization BG<180 -provided DM education -consulted DM educatior for possible glucometer, samples and further education. If DM educator unavailable over weekend then recommend patient stay in hospital until Wednesday morning when DM educator is available
[2017-10-16] MEDS: Insulin Glargine,Human Rec. Analog 100 Units/ML 3 ML Pen SUBCUT SCH (09:28)
--- NOTE | 2017-10-16 09:32 | PCM.PN ---
- General Info Date of Service: 10/16/17 Admission Dx/Problem (Free Text): Admission Diagnosis/Problem Admission Diagnosis/Problem Tenosynovitis of finger, hand, or wrist Subjective Update: some improvement and happy with pain now but overnight was difficult. Still with redness but moderate improvement. Refused dressing change last night. Does not feel comfortable going home and I would agree given underlying medical conditions and dehydration as well as pain control and need for IV antibiotics. Functional Status: Reports: Pain Controlled, Tolerating Diet. Denies: New Symptoms - Review of Systems General: Reports: No Symptoms HEENT: Reports: No Symptoms Pulmonary: Reports: No Symptoms Cardiovascular: Reports: No Symptoms Musculoskeletal: Reports: Hand Pain Skin: Reports: Other (redness ). Denies: Rash Neurological: Reports: No Symptoms Psychiatric: Reports: No Symptoms - Patient Data Vitals - Most Recent: Last Vital Signs Temp 98.6 F 10/16/17 07:50 Pulse 92 10/16/17 07:50 Resp 21 H 10/16/17 07:50 BP 149/94 H 10/16/17 07:50 Pulse Ox 95 10/16/17 07:50 Weight - Most Recent: 200 lb I&O - Last 24 Hours: Intake & Output 10/15/17 10/16/17 10/16/17 23:59 07:59 15:59 Intake Total 550 3154 Output Total 0 1000 Balance 550 2154 Lab Results Last 24 Hours: Laboratory Results - last 24 hr 10/15/17 10/15/17 10/15/17 Range/Units 13:01 13:33 13:33 WBC (4.0-11.0) K/uL RBC (4.50-5.90) M/uL Hgb (13.0-17.0) g/dL Hct (38.0-50.0) % MCV (80.0-98.0) fL MCH (27.0-32.0) pg MCHC (31.0-37.0) g/dL RDW Std Deviation (28.0-62.0) fl RDW Coeff of Juan Alberto (11.0-15.0) % Plt Count (150-400) K/uL MPV (7.40-12.00) fL Neut % (Auto) (48.0-80.0) % Lymph % (Auto) (16.0-40.0) % Grundy % (Auto) (0.0-15.0) % Eos % (Auto) (0.0-7.0) % Baso % (Auto) (0.0-1.5) % Neut # (Auto) (1.4-5.7) K/uL Lymph # (Auto) (0.6-2.4) K/uL Grundy # (Auto) (0.0-0.8) K/uL Eos # (Auto) (0.0-0.7) K/uL Baso # (Auto) (0.0-0.1) K/uL Nucleated RBC % /100WBC Nucleated RBCs # K/uL ABG pH (7.35-7.45) ABG pCO2 (35-45) mmHG ABG pO2 (75-100) mmHG ABG HCO3 (22-26) mEq/L ABG Total CO2 ABG Base Excess (-2.0-2.0) Lactate (0.20-2.00) mmol/L Sodium 129 L (136-148) mmol/L Potassium 4.2 (3.5-5.1) mmol/L Chloride 97 L (98-107) mmol/L Carbon Dioxide 25.8 (21.0-32.0) mmol/L BUN 25 H (7.0-18.0) mg/dL Creatinine 1.7 H (0.8-1.3) mg/dL Est Cr Clr Drug Dosing 55.47 mL/min Estimated GFR (MDRD) 43.4 ml/min Glucose 364 H (74-106) mg/dL POC Glucose 396 H (60-110) mg/dL Hemoglobin A1c 12.5 H (4.5-6.2) % Calcium 8.5 (8.5-10.1) mg/dL Magnesium 1.9 (1.5-2.0) mg/dL Total Bilirubin 0.3 (0.2-1.0) mg/dL AST 18 (15-37) IU/L ALT 21 (14-63) IU/L Alkaline Phosphatase 126 H (46-116) U/L Total Protein 6.1 L (6.4-8.2) g/dL Albumin 1.8 L (3.4-5.0) g/dL Globulin 4.3 H (2.0-3.5) g/dL Albumin/Globulin Ratio 0.4 L (1.3-2.8) Ketones (NEG) 10/15/17 10/15/17 10/15/17 Range/Units 13:33 13:33 14:30 WBC 9.92 (4.0-11.0) K/uL RBC 4.69 (4.50-5.90) M/uL Hgb 13.5 (13.0-17.0) g/dL Hct 38.3 (38.0-50.0) % MCV 81.7 (80.0-98.0) fL MCH 28.8 (27.0-32.0) pg MCHC 35.2 (31.0-37.0) g/dL RDW Std Deviation 36.7 (28.0-62.0) fl RDW Coeff of Juan Alberto 12 (11.0-15.0) % Plt Count 186 (150-400) K/uL MPV 11.50 (7.40-12.00) fL Neut % (Auto) 72.9 (48.0-80.0) % Lymph % (Auto) 18.0 (16.0-40.0) % Grundy % (Auto) 6.7 (0.0-15.0) % Eos % (Auto) 2.2 (0.0-7.0) % Baso % (Auto) 0.2 (0.0-1.5) % Neut # (Auto) 7.2 H (1.4-5.7) K/uL Lymph # (Auto) 1.8 (0.6-2.4) K/uL Grundy # (Auto) 0.7 (0.0-0.8) K/uL Eos # (Auto) 0.2 (0.0-0.7) K/uL Baso # (Auto) 0.0 (0.0-0.1) K/uL Nucleated RBC % 0.0 /100WBC Nucleated RBCs # 0 K/uL ABG pH (7.35-7.45) ABG pCO2 (35-45) mmHG ABG pO2 (75-100) mmHG ABG HCO3 (22-26) mEq/L ABG Total CO2 ABG Base Excess (-2.0-2.0) Lactate 0.9 (0.20-2.00) mmol/L Sodium (136-148) mmol/L Potassium (3.5-5.1) mmol/L Chloride (98-107) mmol/L Carbon Dioxide (21.0-32.0) mmol/L BUN (7.0-18.0) mg/dL Creatinine (0.8-1.3) mg/dL Est Cr Clr Drug Dosing mL/min Estimated GFR (MDRD) ml/min Glucose (74-106) mg/dL POC Glucose (60-110) mg/dL Hemoglobin A1c (4.5-6.2) % Calcium (8.5-10.1) mg/dL Magnesium (1.5-2.0) mg/dL Total Bilirubin (0.2-1.0) mg/dL AST (15-37) IU/L ALT (14-63) IU/L Alkaline Phosphatase (46-116) U/L Total Protein (6.4-8.2) g/dL Albumin (3.4-5.0) g/dL Globulin (2.0-3.5) g/dL Albumin/Globulin Ratio (1.3-2.8) Ketones NEGATIVE (NEG) 10/15/17 10/15/17 10/15/17 Range/Units 14:30 14:47 16:21 WBC (4.0-11.0) K/uL RBC (4.50-5.90) M/uL Hgb (13.0-17.0) g/dL Hct (38.0-50.0) % MCV (80.0-98.0) fL MCH (27.0-32.0) pg MCHC (31.0-37.0) g/dL RDW Std Deviation (28.0-62.0) fl RDW Coeff of Juan Alberto (11.0-15.0) % Plt Count (150-400) K/uL MPV (7.40-12.00) fL Neut % (Auto) (48.0-80.0) % Lymph % (Auto) (16.0-40.0) % Grundy % (Auto) (0.0-15.0) % Eos % (Auto) (0.0-7.0) % Baso % (Auto) (0.0-1.5) % Neut # (Auto) (1.4-5.7) K/uL Lymph # (Auto) (0.6-2.4) K/uL Grundy # (Auto) (0.0-0.8) K/uL Eos # (Auto) (0.0-0.7) K/uL Baso # (Auto) (0.0-0.1) K/uL Nucleated RBC % /100WBC Nucleated RBCs # K/uL ABG pH 7.401 (7.35-7.45) ABG pCO2 43 (35-45) mmHG ABG pO2 91 (75-100) mmHG ABG HCO3 26 (22-26) mEq/L ABG Total CO2 24.0 ABG Base Excess 1.4 (-2.0-2.0) Lactate (0.20-2.00) mmol/L Sodium (136-148) mmol/L Potassium (3.5-5.1) mmol/L Chloride (98-107) mmol/L Carbon Dioxide (21.0-32.0) mmol/L BUN (7.0-18.0) mg/dL Creatinine (0.8-1.3) mg/dL Est Cr Clr Drug Dosing mL/min Estimated GFR (MDRD) ml/min Glucose (74-106) mg/dL POC Glucose 314 H 347 H (60-110) mg/dL Hemoglobin A1c (4.5-6.2) % Calcium (8.5-10.1) mg/dL Magnesium (1.5-2.0) mg/dL Total Bilirubin (0.2-1.0) mg/dL AST (15-37) IU/L ALT (14-63) IU/L Alkaline Phosphatase (46-116) U/L Total Protein (6.4-8.2) g/dL Albumin (3.4-5.0) g/dL Globulin (2.0-3.5) g/dL Albumin/Globulin Ratio (1.3-2.8) Ketones (NEG) 10/16/17 10/16/17 10/16/17 Range/Units 06:01 08:08 08:08 WBC 14.51 H (4.0-11.0) K/uL RBC 4.16 L (4.50-5.90) M/uL Hgb 12.0 L (13.0-17.0) g/dL Hct 34.6 L (38.0-50.0) % MCV 83.2 (80.0-98.0) fL MCH 28.8 (27.0-32.0) pg MCHC 34.7 (31.0-37.0) g/dL RDW Std Deviation 37.5 (28.0-62.0) fl RDW Coeff of Juan Alberto 12 (11.0-15.0) % Plt Count 192 (150-400) K/uL MPV 10.80 (7.40-12.00) fL Neut % (Auto) 73.5 (48.0-80.0) % Lymph % (Auto) 17.6 (16.0-40.0) % Grundy % (Auto) 7.4 (0.0-15.0) % Eos % (Auto) 1.3 (0.0-7.0) % Baso % (Auto) 0.2 (0.0-1.5) % Neut # (Auto) 10.7 H (1.4-5.7) K/uL Lymph # (Auto) 2.6 H (0.6-2.4) K/uL Grundy # (Auto) 1.1 H (0.0-0.8) K/uL Eos # (Auto) 0.2 (0.0-0.7) K/uL Baso # (Auto) 0.0 (0.0-0.1) K/uL Nucleated RBC % 0.0 /100WBC Nucleated RBCs # 0 K/uL ABG pH (7.35-7.45) ABG pCO2 (35-45) mmHG ABG pO2 (75-100) mmHG ABG HCO3 (22-26) mEq/L ABG Total CO2 ABG Base Excess (-2.0-2.0) Lactate (0.20-2.00) mmol/L Sodium 128 L (136-148) mmol/L Potassium 3.9 (3.5-5.1) mmol/L Chloride 95 L (98-107) mmol/L Carbon Dioxide 29.2 (21.0-32.0) mmol/L BUN 28 H (7.0-18.0) mg/dL Creatinine 1.9 H (0.8-1.3) mg/dL Est Cr Clr Drug Dosing 49.63 mL/min Estimated GFR (MDRD) 38.2 ml/min Glucose 236 H (74-106) mg/dL POC Glucose 247 H (60-110) mg/dL Hemoglobin A1c (4.5-6.2) % Calcium 8.3 L (8.5-10.1) mg/dL Magnesium (1.5-2.0) mg/dL Total Bilirubin (0.2-1.0) mg/dL AST (15-37) IU/L ALT (14-63) IU/L Alkaline Phosphatase (46-116) U/L Total Protein (6.4-8.2) g/dL Albumin (3.4-5.0) g/dL Globulin (2.0-3.5) g/dL Albumin/Globulin Ratio (1.3-2.8) Ketones (NEG) Med Orders - Current: Current Medications Acetaminophen (Tylenol) 650 mg PO Q6H PRN PRN Reason: Fever Last Admin: 10/16/17 00:04 Dose: 650 mg Diphenhydramine HCl (Benadryl) 25 mg PO Q6H PRN PRN Reason: Itching Last Admin: 10/15/17 23:01 Dose: 25 mg Lactated Ringer's (Ringers, Lactated) 1,000 mls @ 125 mls/hr IV ASDIRECTED [facility] Last Admin: 10/16/17 01:22 Dose: 125 mls/hr Piperacillin Sod/Tazobactam (Sod 3.375 gm/ Sodium Chloride) 50 mls @ 100 mls/ hr IV Q6H [facility] Last Admin: 10/16/17 03:46 Dose: 100 mls/hr Clindamycin Phosphate 300 mg/ (Sodium Chloride) 52 mls @ 100 mls/hr IV Q6H [facility] Ibuprofen (Motrin) 800 mg PO Q6H PRN PRN Reason: Pain Insulin Aspart (Novolog) 7 unit SUBCUT TIDAC [facility] Last Admin: 10/16/17 07:15 Dose: 7 units Insulin Glargine (Lantus Solostar) 15 units SUBCUT DAILY [facility] Last Admin: 10/15/17 18:08 Dose: 15 units Morphine Sulfate (Morphine) 2 - 4 mg IVPUSH Q2H PRN PRN Reason: Pain Last Admin: 10/16/17 03:47 Dose: 4 mg Ondansetron HCl (Zofran Odt) 4 mg PO Q4H PRN PRN Reason: Nausea/Vomiting Oxycodone HCl (Oxycodone) 5 - 10 mg PO Q3H PRN PRN Reason: Pain Last Admin: 10/16/17 07:13 Dose: 10 mg Discontinued Medications Bupivacaine HCl/Epinephrine Bitart (Marcaine 0.25%/Epinephrine 1:200,000) 10 ml INJECT ONETIME ONE Stop: 10/15/17 08:01 Last Admin: 10/15/17 15:14 Dose: Not Given Cefazolin Sodium (Ancef) Confirm Administered Dose 2 gm .ROUTE .STK-MED ONE Stop: 10/15/17 11:54 Fentanyl (Sublimaze) Confirm Administered Dose 250 mcg .ROUTE .STK-MED ONE Stop: 10/15/17 11:54 Fentanyl (Sublimaze) 50 mcg IVPUSH .Q5MIN PRN PRN Reason: Pain Cefazolin Sodium/Dextrose 2 gm (/ Premix) 50 mls @ 100 mls/hr IV ONETIME ONE Stop: 10/15/17 08:29 Last Admin: 10/15/17 15:14 Dose: Not Given Bupivacaine HCl/Epinephrine Bitart (Sensorc Mpf 0.25%-Epi [id number]) Confirm Administered Dose 30 mls @ as directed .ROUTE .STK-MED ONE Stop: 10/15/17 07:25 Sodium Chloride (Normal Saline) Confirm Administered Dose 20 mls @ as directed .ROUTE .STK-MED ONE Stop: 10/15/17 11:54 Ketorolac Tromethamine (Toradol) Confirm Administered Dose 30 mg .ROUTE .STK- MED ONE Stop: 10/15/17 11:54 Lidocaine (Xylocaine-Mpf 2%) Confirm Administered Dose 5 ml .ROUTE .STK-MED ONE Stop: 10/15/17 11:51 Midazolam HCl (Versed 1 Mg/Ml) Confirm Administered Dose 2 mg .ROUTE .STK-MED ONE Stop: 10/15/17 11:53 Morphine Sulfate (Morphine) 2 mg IVPUSH Q2H PRN PRN Reason: Pain Last Admin: 10/15/17 22:58 Dose: 2 mg Ondansetron HCl (Zofran) Confirm Administered Dose 4 mg .ROUTE .STK-MED ONE Stop: 10/15/17 11:54 Oxycodone HCl (Oxycodone) 5 mg PO Q3H PRN PRN Reason: Pain Last Admin: 10/15/17 23:43 Dose: 5 mg Propofol (Diprivan 20 Ml) Confirm Administered Dose 200 mg .ROUTE .STK-MED ONE Stop: 10/15/17 11:53 Propofol (Diprivan 20 Ml) Confirm Administered Dose 200 mg .ROUTE .STK-MED ONE Stop: 10/15/17 14:17 - Exam General: Alert, Oriented, Cooperative HEENT: Pupils Reactive, EOMI Lungs: Normal Respiratory Effort GI/Abdominal Exam: Soft Extremities: Arm Pain, Redness (no increase. continues to be red but slightly less swelling. ) Skin: Warm, Dry Wound/Incisions: Healing Well, Dressing Dry and Intact, No Drainage, Erythema ( minor improvements. Would expect more after surgery. ) Psy/Mental Status: Alert, Normal Affect, Normal Mood - Problem List Review Problem List Initiated/Reviewed/Updated: Yes - My Orders Last 24 Hours: My Active Orders 10/15/17 14:00 Consult to Physician [CONS] Routine 10/15/17 14:55 Blood Glucose Check, Bedside [RC] QIDACANDBED Elevate Extremity [RC] BID Vital Signs [RC] Q4H 10/15/17 15:04 Ondansetron [Zofran ODT] 4 mg PO Q4H PRN diphenhydrAMINE [Benadryl] 25 mg PO Q6H PRN 10/15/17 16:00 Piperacillin/Tazobactam [Piperacil-Tazobact] 3.375 gm Sodium Chloride 0.9% [ Normal Saline] 50 ml IV Q6H 10/15/17 20:00 Wound Care [RC] Q12H 10/15/17 23:51 Acetaminophen [Tylenol] 650 mg PO Q6H PRN 10/15/17 23:53 Ibuprofen [Motrin] 800 mg PO Q6H PRN 10/15/17 23:55 oxyCODONE 5 - 10 mg PO Q3H PRN 10/15/17 23:57 Morphine 2 - 4 mg IVPUSH Q2H PRN 10/15/17 Dinner [employer] [employer] Diet [DIET] 10/16/17 09:25 Admission Status [Patient Status] [ADT] Routine 10/16/17 09:27 Notify Provider Consults [RC] ASDIRECTED 10/16/17 09:30 Clindamycin Phosphate [Cleocin] 300 mg Sodium Chloride 0.9% [Normal Saline] 50 ml IV Q6H - Assessment Assessment:: POD 1 I and D for tenosynovitis. Improvements but not as much as expected. Add clindamycin and start soaks. - Plan Plan:: Continue pain control and elevation. Wound cares and medications. Will add clindamycin. Recheck in am for possible discharge. Appreciate hospital involvement for diabetic control.
[2017-10-16] MEDS: Clindamycin Phosphate in D5W 300 MG in Premix Bag 1 BAG IV SCH ×6 (10:21→20:33)
[2017-10-16] MEDS ORDERED: Insulin Glargine,Human Rec. Analog 100 Units/ML 3 ML Pen SUBCUT ONE (11:39)
[2017-10-17] MEDS: oxyCODONE 5 MG Tab PO PRN ×4 (02:45→21:57)
[2017-10-17] MEDS: Clindamycin Phosphate in D5W 300 MG in Premix Bag 1 BAG IV SCH ×8 (02:46→21:04)
[2017-10-17] MEDS: Piperacillin/Tazobactam 3.375 GM in Sodium Chloride 0.9% 50 ML IV SCH ×4 (05:01→21:50)
[2017-10-17] MEDS: Lactated Ringers 1,000 ML IV SCH ×2 (05:01→14:43)
[2017-10-17] MEDS: Insulin Aspart 100 Units/ML 3 ML Pen SUBCUT SCH ×3 (06:57→17:28)
[2017-10-17] MEDS ORDERED: Insulin Glargine,Human Rec. Analog 100 Units/ML 3 ML Pen SUBCUT SCH (09:00)
[2017-10-17] MEDS: Morphine 4 MG/ML Syringe IVPUSH PRN ×4 (13:24→20:04)
--- NOTE | 2017-10-17 13:33 | PCM.PN ---
- General Info Date of Service: 10/17/17 Admission Dx/Problem (Free Text): Admission Diagnosis/Problem Admission Diagnosis/Problem Tenosynovitis of finger, hand, or wrist Subjective Update: Better today but the hand palm is still red. More improvements with clindamycin. Glucose still not well controlled and awaiting ict educator as well. we discussed continued IV antibiotics and is needing IV pain control as well. Functional Status: Reports: Pain Controlled (with IV meds), Tolerating Diet, Ambulating, Urinating. Denies: New Symptoms - Review of Systems General: Reports: No Symptoms. Denies: Fever HEENT: Reports: No Symptoms Pulmonary: Reports: No Symptoms Musculoskeletal: Reports: Hand Pain Skin: Reports: Other (redness still present. ) Neurological: Reports: Numbness (median nerve still with swelling and numbness) Psychiatric: Reports: No Symptoms - Patient Data Vitals - Most Recent: Last Vital Signs Temp 97.2 F 10/17/17 12:00 Pulse 78 10/17/17 12:00 Resp 16 10/17/17 12:00 BP 152/100 H 10/17/17 12:00 Pulse Ox 100 10/17/17 12:00 Weight - Most Recent: 200 lb I&O - Last 24 Hours: Intake & Output 10/16/17 10/17/17 10/17/17 23:59 07:59 15:59 Intake Total 1750 1300 100 Output Total 800 1800 Balance 950 -500 100 Lab Results Last 24 Hours: Laboratory Results - last 24 hr 10/16/17 10/16/17 10/16/17 Range/Units 12:44 16:10 20:32 POC Glucose 234 H 192 H 161 H (60-110) mg/dL 10/17/17 10/17/17 Range/Units 06:56 11:58 POC Glucose 364 H 309 H (60-110) mg/dL Med Orders - Current: Current Medications Acetaminophen (Tylenol) 650 mg PO Q6H PRN PRN Reason: Fever Last Admin: 10/16/17 00:04 Dose: 650 mg Diphenhydramine HCl (Benadryl) 25 mg PO Q6H PRN PRN Reason: Itching Last Admin: 10/15/17 23:01 Dose: 25 mg Lactated Ringer's (Ringers, Lactated) 1,000 mls @ 125 mls/hr IV ASDIRECTED [facility] Last Admin: 10/17/17 05:01 Dose: 125 mls/hr Piperacillin Sod/Tazobactam (Sod 3.375 gm/ Sodium Chloride) 50 mls @ 100 mls/ hr IV Q6H [facility] Last Infusion: 10/17/17 09:45 Dose: Infused Clindamycin Phosphate 300 mg/ (Premix) 50 mls @ 100 mls/hr IV Q6H [facility] Last Infusion: 10/17/17 09:12 Dose: Infused Ibuprofen (Motrin) 800 mg PO Q6H PRN PRN Reason: Pain Last Admin: 10/17/17 00:55 Dose: 800 mg Insulin Aspart (Novolog) 9 unit SUBCUT TIDAC [facility] Last Admin: 10/17/17 12:30 Dose: 9 units Insulin Glargine (Lantus Solostar) 19 units SUBCUT DAILY [facility] Morphine Sulfate (Morphine) 2 - 4 mg IVPUSH Q2H PRN PRN Reason: Pain Last Admin: 10/17/17 13:24 Dose: 2 mg Ondansetron HCl (Zofran Odt) 4 mg PO Q4H PRN PRN Reason: Nausea/Vomiting Oxycodone HCl (Oxycodone) 5 - 10 mg PO Q3H PRN PRN Reason: Pain Last Admin: 10/17/17 12:45 Dose: 10 mg Discontinued Medications Bupivacaine HCl/Epinephrine Bitart (Marcaine 0.25%/Epinephrine 1:200,000) 10 ml INJECT ONETIME ONE Stop: 10/15/17 08:01 Last Admin: 10/15/17 15:14 Dose: Not Given Cefazolin Sodium (Ancef) Confirm Administered Dose 2 gm .ROUTE .STK-MED ONE Stop: 10/15/17 11:54 Fentanyl (Sublimaze) Confirm Administered Dose 250 mcg .ROUTE .STK-MED ONE Stop: 10/15/17 11:54 Fentanyl (Sublimaze) 50 mcg IVPUSH .Q5MIN PRN PRN Reason: Pain Cefazolin Sodium/Dextrose 2 gm (/ Premix) 50 mls @ 100 mls/hr IV ONETIME ONE Stop: 10/15/17 08:29 Last Admin: 10/15/17 15:14 Dose: Not Given Bupivacaine HCl/Epinephrine Bitart (Sensorc Mpf 0.25%-Epi [id number]) Confirm Administered Dose 30 mls @ as directed .ROUTE .STK-MED ONE Stop: 10/15/17 07:25 Sodium Chloride (Normal Saline) Confirm Administered Dose 20 mls @ as directed .ROUTE .STK-MED ONE Stop: 10/15/17 11:54 Insulin Aspart (Novolog) 7 unit SUBCUT TIDAC [facility] Last Admin: 10/17/17 06:57 Dose: 7 units Insulin Glargine (Lantus Solostar) 15 units SUBCUT DAILY [facility] Last Admin: 10/16/17 09:28 Dose: 15 units Insulin Glargine (Lantus Solostar) 17 units SUBCUT DAILY [facility] Last Admin: 10/17/17 08:34 Dose: 17 units Insulin Glargine (Lantus Solostar) 2 units SUBCUT ONETIME ONE Stop: 10/16/17 11:40 Last Admin: 10/16/17 12:35 Dose: 2 units Ketorolac Tromethamine (Toradol) Confirm Administered Dose 30 mg .ROUTE .STK- MED ONE Stop: 10/15/17 11:54 Lidocaine (Xylocaine-Mpf 2%) Confirm Administered Dose 5 ml .ROUTE .STK-MED ONE Stop: 10/15/17 11:51 Midazolam HCl (Versed 1 Mg/Ml) Confirm Administered Dose 2 mg .ROUTE .STK-MED ONE Stop: 10/15/17 11:53 Morphine Sulfate (Morphine) 2 mg IVPUSH Q2H PRN PRN Reason: Pain Last Admin: 10/15/17 22:58 Dose: 2 mg Ondansetron HCl (Zofran) Confirm Administered Dose 4 mg .ROUTE .STK-MED ONE Stop: 10/15/17 11:54 Oxycodone HCl (Oxycodone) 5 mg PO Q3H PRN PRN Reason: Pain Last Admin: 10/15/17 23:43 Dose: 5 mg Propofol (Diprivan 20 Ml) Confirm Administered Dose 200 mg .ROUTE .STK-MED ONE Stop: 10/15/17 11:53 Propofol (Diprivan 20 Ml) Confirm Administered Dose 200 mg .ROUTE .STK-MED ONE Stop: 10/15/17 14:17 - Exam General: Alert, Oriented, Cooperative, No Acute Distress (ambulating well. ) HEENT: Pupils Equal Lungs: Normal Respiratory Effort Extremities: Redness (improved today but still present and not resolving as quickly as I would expect given cultures and sensitivites. Stiffness and pain still. Numbness of thumb. ) Skin: Warm, Dry Wound/Incisions: Drainage (clear drainage today without purulence. ), Erythema Improving Psy/Mental Status: Alert, Normal Affect, Normal Mood - Problem List & Annotations (1) Tenosynovitis of finger and hand SNOMED Code(s): 694198970 Code(s): M65.9 - SYNOVITIS AND TENOSYNOVITIS, UNSPECIFIED Status: Acute Priority: High Current Visit: Yes (2) Frostbite SNOMED Code(s): 046588485 Code(s): T33.90XA - SUPERFICIAL FROSTBITE OF UNSPECIFIED SITES, INIT ENCNTR Status: Acute Priority: High Current Visit: No Qualifiers: Encounter type: sequela Qualified Code(s): T33.90XS - Superficial frostbite of unspecified sites, sequela - Problem List Review Problem List Initiated/Reviewed/Updated: Yes - Assessment Assessment:: POD 2 I and D for tenosynovitis. Improvements continue but still needing IV therapy and pain control. - Plan Plan:: Continue pain control and elevation. Wound cares and medications. Continue clindamycin. Recheck in am for possible discharge. Appreciate hospital involvement for diabetic control. adaptive physical educator tomorrow. AM labs
--- NOTE | 2017-10-17 16:28 | PCM.CONSN ---
- General Info Date of Service: 10/17/17 - Review of Systems Systems Review Comment:: no new complaints - Patient Data Vitals - Most Recent: Last Vital Signs Temp 36.2 C 10/17/17 12:00 Pulse 78 10/17/17 12:00 Resp 16 10/17/17 12:00 BP 152/100 H 10/17/17 12:00 Pulse Ox 100 10/17/17 12:00 Weight - Most Recent: 90.718 kg I&O - Last 24 Hours: Intake & Output 10/17/17 10/17/17 10/17/17 06:59 14:59 22:59 Intake Total 1300 100 50 Output Total 1800 Balance -500 100 50 Lab Results Last 24 Hours: Laboratory Results - last 24 hr 10/16/17 10/16/17 10/16/17 Range/Units 12:44 16:10 20:32 POC Glucose 234 H 192 H 161 H (60-110) mg/dL 10/17/17 10/17/17 Range/Units 06:56 11:58 POC Glucose 364 H 309 H (60-110) mg/dL Med Orders - Current: Current Medications Acetaminophen (Tylenol) 650 mg PO Q6H PRN PRN Reason: Fever Last Admin: 10/16/17 00:04 Dose: 650 mg Diphenhydramine HCl (Benadryl) 25 mg PO Q6H PRN PRN Reason: Itching Last Admin: 10/15/17 23:01 Dose: 25 mg Lactated Ringer's (Ringers, Lactated) 1,000 mls @ 125 mls/hr IV ASDIRECTED [facility] Last Admin: 10/17/17 14:43 Dose: 125 mls/hr Piperacillin Sod/Tazobactam (Sod 3.375 gm/ Sodium Chloride) 50 mls @ 100 mls/ hr IV Q6H [facility] Last Admin: 10/17/17 15:26 Dose: 100 mls/hr Clindamycin Phosphate 300 mg/ (Premix) 50 mls @ 100 mls/hr IV Q6H [facility] Last Infusion: 10/17/17 15:22 Dose: Infused Insulin Aspart (Novolog) 9 unit SUBCUT TIDAC [facility] Last Admin: 10/17/17 12:30 Dose: 9 units Insulin Glargine (Lantus Solostar) 19 units SUBCUT DAILY [facility] Morphine Sulfate (Morphine) 2 - 4 mg IVPUSH Q2H PRN PRN Reason: Pain Last Admin: 10/17/17 15:24 Dose: 4 mg Ondansetron HCl (Zofran Odt) 4 mg PO Q4H PRN PRN Reason: Nausea/Vomiting Oxycodone HCl (Oxycodone) 5 - 10 mg PO Q3H PRN PRN Reason: Pain Last Admin: 10/17/17 12:45 Dose: 10 mg Discontinued Medications Bupivacaine HCl/Epinephrine Bitart (Marcaine 0.25%/Epinephrine 1:200,000) 10 ml INJECT ONETIME ONE Stop: 10/15/17 08:01 Last Admin: 10/15/17 15:14 Dose: Not Given Cefazolin Sodium (Ancef) Confirm Administered Dose 2 gm .ROUTE .STK-MED ONE Stop: 10/15/17 11:54 Fentanyl (Sublimaze) Confirm Administered Dose 250 mcg .ROUTE .STK-MED ONE Stop: 10/15/17 11:54 Fentanyl (Sublimaze) 50 mcg IVPUSH .Q5MIN PRN PRN Reason: Pain Cefazolin Sodium/Dextrose 2 gm (/ Premix) 50 mls @ 100 mls/hr IV ONETIME ONE Stop: 10/15/17 08:29 Last Admin: 10/15/17 15:14 Dose: Not Given Bupivacaine HCl/Epinephrine Bitart (Sensorc Mpf 0.25%-Epi [id number]) Confirm Administered Dose 30 mls @ as directed .ROUTE .STK-MED ONE Stop: 10/15/17 07:25 Sodium Chloride (Normal Saline) Confirm Administered Dose 20 mls @ as directed .ROUTE .STK-MED ONE Stop: 10/15/17 11:54 Ibuprofen (Motrin) 800 mg PO Q6H PRN PRN Reason: Pain Last Admin: 10/17/17 00:55 Dose: 800 mg Insulin Aspart (Novolog) 7 unit SUBCUT TIDAC [facility] Last Admin: 10/17/17 06:57 Dose: 7 units Insulin Glargine (Lantus Solostar) 15 units SUBCUT DAILY [facility] Last Admin: 10/16/17 09:28 Dose: 15 units Insulin Glargine (Lantus Solostar) 17 units SUBCUT DAILY [facility] Last Admin: 10/17/17 08:34 Dose: 17 units Insulin Glargine (Lantus Solostar) 2 units SUBCUT ONETIME ONE Stop: 10/16/17 11:40 Last Admin: 10/16/17 12:35 Dose: 2 units Ketorolac Tromethamine (Toradol) Confirm Administered Dose 30 mg .ROUTE .STK- MED ONE Stop: 10/15/17 11:54 Lidocaine (Xylocaine-Mpf 2%) Confirm Administered Dose 5 ml .ROUTE .STK-MED ONE Stop: 10/15/17 11:51 Midazolam HCl (Versed 1 Mg/Ml) Confirm Administered Dose 2 mg .ROUTE .STK-MED ONE Stop: 10/15/17 11:53 Morphine Sulfate (Morphine) 2 mg IVPUSH Q2H PRN PRN Reason: Pain Last Admin: 10/15/17 22:58 Dose: 2 mg Ondansetron HCl (Zofran) Confirm Administered Dose 4 mg .ROUTE .STK-MED ONE Stop: 10/15/17 11:54 Oxycodone HCl (Oxycodone) 5 mg PO Q3H PRN PRN Reason: Pain Last Admin: 10/15/17 23:43 Dose: 5 mg Propofol (Diprivan 20 Ml) Confirm Administered Dose 200 mg .ROUTE .STK-MED ONE Stop: 10/15/17 11:53 Propofol (Diprivan 20 Ml) Confirm Administered Dose 200 mg .ROUTE .STK-MED ONE Stop: 10/15/17 14:17 - Exam General: Alert, Oriented Neck: Supple Lungs: Clear to Auscultation, Normal Respiratory Effort Cardiovascular: Regular Rate, Regular Rhythm GI/Abdominal Exam: Normal Bowel Sounds, Soft, Non-Tender Neurological: No New Focal Deficit Consult PN Assessment/Plan Procedures: Procedures AMPUTATION OF FINGER/THUMB (09/22/17) ELECTROCARDIOGRAM TRACING (09/22/17) EMERGENCY DEPT VISIT (06/24/17) GLUCOSE BLOOD TEST (09/22/17) IMMUNIZATION ADMIN (06/24/17) TDAP VACCINE 7 YRS/> IM (06/24/17) TISSUE EXAM BY PATHOLOGIST (09/22/17) Problem List Initiated/Reviewed/Updated: Yes My Orders Last 24 Hours: My Active Orders 10/17/17 11:30 Insulin Aspart [NovoLOG] 9 unit SUBCUT TIDAC 10/18/17 09:00 Insulin Glarg,Human.Rec.Analog [LantUS Solostar] 19 units SUBCUT DAILY Plan: We will increase lantus to 19 units and premeal insulin to 9.
[2017-10-18] MEDS: Lactated Ringers 1,000 ML IV SCH ×3 (00:53→21:36)
[2017-10-18] MEDS: Morphine 4 MG/ML Syringe IVPUSH PRN ×3 (01:02→22:42)
[2017-10-18] MEDS: diphenhydrAMINE 25 MG Cap PO PRN (01:02)
[2017-10-18] MEDS: oxyCODONE 5 MG Tab PO PRN ×4 (02:52→18:28)
[2017-10-18] MEDS: Clindamycin Phosphate in D5W 300 MG in Premix Bag 1 BAG IV SCH ×6 (02:52→15:08)
[2017-10-18] MEDS: Piperacillin/Tazobactam 3.375 GM in Sodium Chloride 0.9% 50 ML IV SCH ×4 (04:01→21:37)
[2017-10-18] MEDS: Insulin Aspart 100 Units/ML 3 ML Pen SUBCUT SCH ×3 (06:37→16:41)
--- NOTE | 2017-10-18 08:14 | PCM.CONSN ---
- General Info Date of Service: 10/18/17 Admission Dx/Problem (Free Text): Admission Diagnosis/Problem Admission Diagnosis/Problem Tenosynovitis of finger, hand, or wrist Subjective Update: No overnight events. Has post-op pain which is controlled during day but increases at night. Functional Status: Reports: Pain Controlled, Tolerating Diet, Ambulating, Urinating - Review of Systems General: Reports: No Symptoms HEENT: Reports: No Symptoms Pulmonary: Reports: No Symptoms Cardiovascular: Reports: No Symptoms Gastrointestinal: Reports: No Symptoms Genitourinary: Reports: No Symptoms Musculoskeletal: Reports: Hand Pain Skin: Reports: No Symptoms Neurological: Reports: Numbness, Paresthesia, Pre-Existing Deficit, Tingling Psychiatric: Reports: No Symptoms - Patient Data Vitals - Most Recent: Last Vital Signs Temp 37.0 C 10/18/17 05:00 Pulse 103 H 10/18/17 05:00 Resp 20 10/18/17 05:00 BP 139/90 10/18/17 05:00 Pulse Ox 97 10/18/17 05:00 Weight - Most Recent: 90.718 kg I&O - Last 24 Hours: Intake & Output 10/17/17 10/18/17 10/18/17 22:59 06:59 14:59 Intake Total 200 1350 Output Total 1200 Balance 200 150 Lab Results Last 24 Hours: Laboratory Results - last 24 hr 10/17/17 10/17/17 10/17/17 Range/Units 11:58 16:20 22:00 POC Glucose 309 H 204 H 169 H (60-110) mg/dL 10/18/17 Range/Units 06:00 POC Glucose 221 H (60-110) mg/dL Med Orders - Current: Current Medications Acetaminophen (Tylenol) 650 mg PO Q6H PRN PRN Reason: Fever Last Admin: 10/16/17 00:04 Dose: 650 mg Diphenhydramine HCl (Benadryl) 25 mg PO Q6H PRN PRN Reason: Itching Last Admin: 10/18/17 01:02 Dose: 25 mg Lactated Ringer's (Ringers, Lactated) 1,000 mls @ 125 mls/hr IV ASDIRECTED [facility] Last Admin: 10/18/17 00:53 Dose: 125 mls/hr Piperacillin Sod/Tazobactam (Sod 3.375 gm/ Sodium Chloride) 50 mls @ 100 mls/ hr IV Q6H [facility] Last Admin: 10/18/17 04:01 Dose: 100 mls/hr Clindamycin Phosphate 300 mg/ (Premix) 50 mls @ 100 mls/hr IV Q6H [facility] Last Admin: 10/18/17 02:52 Dose: 100 mls/hr Insulin Aspart (Novolog) 9 unit SUBCUT TIDAC [facility] Last Admin: 10/18/17 06:37 Dose: 9 units Insulin Glargine (Lantus Solostar) 19 units SUBCUT DAILY [facility] Morphine Sulfate (Morphine) 2 - 4 mg IVPUSH Q2H PRN PRN Reason: Pain Last Admin: 10/18/17 01:02 Dose: 4 mg Ondansetron HCl (Zofran Odt) 4 mg PO Q4H PRN PRN Reason: Nausea/Vomiting Oxycodone HCl (Oxycodone) 5 - 10 mg PO Q3H PRN PRN Reason: Pain Last Admin: 10/18/17 02:52 Dose: 10 mg Discontinued Medications Bupivacaine HCl/Epinephrine Bitart (Marcaine 0.25%/Epinephrine 1:200,000) 10 ml INJECT ONETIME ONE Stop: 10/15/17 08:01 Last Admin: 10/15/17 15:14 Dose: Not Given Cefazolin Sodium (Ancef) Confirm Administered Dose 2 gm .ROUTE .STK-MED ONE Stop: 10/15/17 11:54 Fentanyl (Sublimaze) Confirm Administered Dose 250 mcg .ROUTE .STK-MED ONE Stop: 10/15/17 11:54 Fentanyl (Sublimaze) 50 mcg IVPUSH .Q5MIN PRN PRN Reason: Pain Cefazolin Sodium/Dextrose 2 gm (/ Premix) 50 mls @ 100 mls/hr IV ONETIME ONE Stop: 10/15/17 08:29 Last Admin: 10/15/17 15:14 Dose: Not Given Bupivacaine HCl/Epinephrine Bitart (Sensorc Mpf 0.25%-Epi 1:[id number]) Confirm Administered Dose 30 mls @ as directed .ROUTE .STK-MED ONE Stop: 10/15/17 07:25 Sodium Chloride (Normal Saline) Confirm Administered Dose 20 mls @ as directed .ROUTE .STK-MED ONE Stop: 10/15/17 11:54 Ibuprofen (Motrin) 800 mg PO Q6H PRN PRN Reason: Pain Last Admin: 10/17/17 00:55 Dose: 800 mg Insulin Aspart (Novolog) 7 unit SUBCUT TIDAC [facility] Last Admin: 10/17/17 06:57 Dose: 7 units Insulin Glargine (Lantus Solostar) 15 units SUBCUT DAILY [facility] Last Admin: 10/16/17 09:28 Dose: 15 units Insulin Glargine (Lantus Solostar) 17 units SUBCUT DAILY [facility] Last Admin: 10/17/17 08:34 Dose: 17 units Insulin Glargine (Lantus Solostar) 2 units SUBCUT ONETIME ONE Stop: 10/16/17 11:40 Last Admin: 10/16/17 12:35 Dose: 2 units Ketorolac Tromethamine (Toradol) Confirm Administered Dose 30 mg .ROUTE .STK- MED ONE Stop: 10/15/17 11:54 Lidocaine (Xylocaine-Mpf 2%) Confirm Administered Dose 5 ml .ROUTE .STK-MED ONE Stop: 10/15/17 11:51 Midazolam HCl (Versed 1 Mg/Ml) Confirm Administered Dose 2 mg .ROUTE .STK-MED ONE Stop: 10/15/17 11:53 Morphine Sulfate (Morphine) 2 mg IVPUSH Q2H PRN PRN Reason: Pain Last Admin: 10/15/17 22:58 Dose: 2 mg Ondansetron HCl (Zofran) Confirm Administered Dose 4 mg .ROUTE .STK-MED ONE Stop: 10/15/17 11:54 Oxycodone HCl (Oxycodone) 5 mg PO Q3H PRN PRN Reason: Pain Last Admin: 10/15/17 23:43 Dose: 5 mg Propofol (Diprivan 20 Ml) Confirm Administered Dose 200 mg .ROUTE .STK-MED ONE Stop: 10/15/17 11:53 Propofol (Diprivan 20 Ml) Confirm Administered Dose 200 mg .ROUTE .STK-MED ONE Stop: 10/15/17 14:17 - Exam General: Alert, Oriented HEENT: Pupils Equal, Pupils Reactive, Mucous Membr. Moist/[employer] Neck: Supple Lungs: Clear to Auscultation, Normal Respiratory Effort Cardiovascular: Regular Rate, Regular Rhythm GI/Abdominal Exam: Normal Bowel Sounds, Soft, Non-Tender Extremities: No Pedal Edema Wound/Incisions: Dressing Dry and Intact Psy/Mental Status: Alert, Normal Affect, Normal Mood Consult PN Assessment/Plan Procedures: Procedures AMPUTATION OF FINGER/THUMB (09/22/17) ELECTROCARDIOGRAM TRACING (09/22/17) EMERGENCY DEPT VISIT (06/24/17) GLUCOSE BLOOD TEST (09/22/17) IMMUNIZATION ADMIN (06/24/17) TDAP VACCINE 7 YRS/> IM (06/24/17) TISSUE EXAM BY PATHOLOGIST (09/22/17) Problem List Initiated/Reviewed/Updated: Yes Plan: 47 yo male with history of Uncontrolled NIDDM and non-adherence admitted for left hand abscess. Patient admitted to Plastic Surgery. Medicine consulted for Hyperglycemia and Uncontrolled Diabetes. #Hyperglycemia #NIDDM, Uncontrolled #Non-adherence to treatment -Patient previously Metformin which he discontinued on his own -HbA1C 12.5%, BG ranging from 300-400 at admission -increased yesterday to Lantus 19 units for basal and Novolog 9 units for prandial -BG range 170-230 Plan: -patient cleared for discharge from medical point of view -october discharge with Lantus 20 units QD, Novolog 10 units TIDAC & Metformin 500 mg QD -DM educator consulted - patient was given 1 month supply of samples of Lantus, Novolog, Pen needles, lncets and test strips -patient given prescription for Metformin 500 mg BID for 30 days, he was instructed to use 500 mg QD for 1 month then increase to BID to decrease risk of side effects -f/u with pcp arranged
[2017-10-18] MEDS: Insulin Glargine,Human Rec. Analog 100 Units/ML 3 ML Pen SUBCUT SCH (08:53)
[2017-10-18] MEDS ORDERED: DAPTOmycin 500 MG Vial IV SCH (18:00)
--- NOTE | 2017-10-18 18:05 | PCM.PN ---
- General Info Date of Service: 10/18/17 Admission Dx/Problem (Free Text): Admission Diagnosis/Problem Admission Diagnosis/Problem Tenosynovitis of finger, hand, or wrist Subjective Update: Continues to have redness despite cultures and appropriate antibiotics. Discussed with pharmacy and missing MRSA coverage and given creatinine elevation daptomycin presents as an option fro increased coverage without lag of vancomycin. Also discussed with patient the possibility of repeat I and D of the tendon area tomorrow should things not improve significantly. No drainage from wounds currently and limited to a beefy redness in the palm now with some volar thumb involvement. Functional Status: Reports: Pain Controlled (much improved today. ), Tolerating Diet, Ambulating - Review of Systems General: Reports: No Symptoms HEENT: Reports: No Symptoms Pulmonary: Reports: No Symptoms Skin: Reports: Other (redness without much improvement. ) Neurological: Reports: Numbness (hand is more numb today with swelling in the palm. ), Paresthesia Psychiatric: Reports: No Symptoms - Patient Data Vitals - Most Recent: Last Vital Signs Temp 97.8 F 10/18/17 15:35 Pulse 92 10/18/17 15:35 Resp 20 10/18/17 15:35 BP 144/91 H 10/18/17 15:35 Pulse Ox 94 L 10/18/17 15:35 Weight - Most Recent: 200 lb I&O - Last 24 Hours: Intake & Output 10/18/17 10/18/17 10/18/17 07:59 15:59 23:59 Intake Total 1350 100 Output Total 1200 Balance 150 100 Lab Results Last 24 Hours: Laboratory Results - last 24 hr 10/17/17 10/18/17 10/18/17 Range/Units 22:00 06:00 08:27 WBC 17.92 H (4.0-11.0) K/uL RBC 4.17 L (4.50-5.90) M/uL Hgb 11.9 L (13.0-17.0) g/dL Hct 34.8 L (38.0-50.0) % MCV 83.5 (80.0-98.0) fL MCH 28.5 (27.0-32.0) pg MCHC 34.2 (31.0-37.0) g/dL RDW Std Deviation 38.1 (28.0-62.0) fl RDW Coeff of Juan Alberto 13 (11.0-15.0) % Plt Count 240 (150-400) K/uL MPV 10.80 (7.40-12.00) fL Add Manual Diff YES Neutrophils % (Manual) 72 (48.0-80.0) % Band Neutrophils % 9 % Lymphocytes % (Manual) 11 L (16.0-40.0) % Monocytes % (Manual) 7 (0.0-15.0) % Eosinophils % (Manual) 1 (0.0-7.0) % Nucleated RBC % 0.0 /100WBC Absolute Seg Neuts 12.9 H (1.4-5.7) Band Neutrophils # 1.6 Lymphocytes # (Manual) 2.0 (0.6-2.4) Monocytes # (Manual) 1.3 H (0.0-0.8) Eosinophils # (Manual) 0.2 (0.0-0.7) Nucleated RBCs # 0 K/uL Sodium (136-148) mmol/L Potassium (3.5-5.1) mmol/L Chloride (98-107) mmol/L Carbon Dioxide (21.0-32.0) mmol/L BUN (7.0-18.0) mg/dL Creatinine (0.8-1.3) mg/dL Est Cr Clr Drug Dosing mL/min Estimated GFR (MDRD) ml/min Glucose (74-106) mg/dL POC Glucose 169 H 221 H (60-110) mg/dL Calcium (8.5-10.1) mg/dL 10/18/17 10/18/17 10/18/17 Range/Units 08:27 08:49 11:50 WBC (4.0-11.0) K/uL RBC (4.50-5.90) M/uL Hgb (13.0-17.0) g/dL Hct (38.0-50.0) % MCV (80.0-98.0) fL MCH (27.0-32.0) pg MCHC (31.0-37.0) g/dL RDW Std Deviation (28.0-62.0) fl RDW Coeff of Juan Alberto (11.0-15.0) % Plt Count (150-400) K/uL MPV (7.40-12.00) fL Add Manual Diff Neutrophils % (Manual) (48.0-80.0) % Band Neutrophils % % Lymphocytes % (Manual) (16.0-40.0) % Monocytes % (Manual) (0.0-15.0) % Eosinophils % (Manual) (0.0-7.0) % Nucleated RBC % /100WBC Absolute Seg Neuts (1.4-5.7) Band Neutrophils # Lymphocytes # (Manual) (0.6-2.4) Monocytes # (Manual) (0.0-0.8) Eosinophils # (Manual) (0.0-0.7) Nucleated RBCs # K/uL Sodium 132 L (136-148) mmol/L Potassium 4.1 (3.5-5.1) mmol/L Chloride 97 L (98-107) mmol/L Carbon Dioxide 25.8 (21.0-32.0) mmol/L BUN 23 H (7.0-18.0) mg/dL Creatinine 1.7 H (0.8-1.3) mg/dL Est Cr Clr Drug Dosing 55.47 mL/min Estimated GFR (MDRD) 43.4 ml/min Glucose 169 H (74-106) mg/dL POC Glucose 151 H 142 H (60-110) mg/dL Calcium 8.6 (8.5-10.1) mg/dL Med Orders - Current: Current Medications Acetaminophen (Tylenol) 650 mg PO Q6H PRN PRN Reason: Fever Last Admin: 10/16/17 00:04 Dose: 650 mg Diphenhydramine HCl (Benadryl) 25 mg PO Q6H PRN PRN Reason: Itching Last Admin: 10/18/17 01:02 Dose: 25 mg Lactated Ringer's (Ringers, Lactated) 1,000 mls @ 125 mls/hr IV ASDIRECTED [facility] Last Admin: 10/18/17 11:44 Dose: 125 mls/hr Piperacillin Sod/Tazobactam (Sod 3.375 gm/ Sodium Chloride) 50 mls @ 100 mls/ hr IV Q6H [facility] Last Admin: 10/18/17 16:39 Dose: 100 mls/hr Daptomycin 900 mg/ Sodium (Chloride) 18 mls @ 540 mls/hr IV Q24H [facility] Insulin Aspart (Novolog) 9 unit SUBCUT TIDAC [facility] Last Admin: 10/18/17 16:41 Dose: 9 units Insulin Glargine (Lantus Solostar) 19 units SUBCUT DAILY [facility] Last Admin: 10/18/17 08:53 Dose: 19 units Morphine Sulfate (Morphine) 2 - 4 mg IVPUSH Q2H PRN PRN Reason: Pain Last Admin: 10/18/17 10:38 Dose: 2 mg Ondansetron HCl (Zofran Odt) 4 mg PO Q4H PRN PRN Reason: Nausea/Vomiting Oxycodone HCl (Oxycodone) 5 - 10 mg PO Q3H PRN PRN Reason: Pain Last Admin: 10/18/17 15:08 Dose: 10 mg Discontinued Medications Bupivacaine HCl/Epinephrine Bitart (Marcaine 0.25%/Epinephrine 1:200,000) 10 ml INJECT ONETIME ONE Stop: 10/15/17 08:01 Last Admin: 10/15/17 15:14 Dose: Not Given Cefazolin Sodium (Ancef) Confirm Administered Dose 2 gm .ROUTE .STK-MED ONE Stop: 10/15/17 11:54 Fentanyl (Sublimaze) Confirm Administered Dose 250 mcg .ROUTE .STK-MED ONE Stop: 10/15/17 11:54 Fentanyl (Sublimaze) 50 mcg IVPUSH .Q5MIN PRN PRN Reason: Pain Cefazolin Sodium/Dextrose 2 gm (/ Premix) 50 mls @ 100 mls/hr IV ONETIME ONE Stop: 10/15/17 08:29 Last Admin: 10/15/17 15:14 Dose: Not Given Bupivacaine HCl/Epinephrine Bitart (Sensorc Mpf 0.25%-Epi 1:[id number]) Confirm Administered Dose 30 mls @ as directed .ROUTE .STK-MED ONE Stop: 10/15/17 07:25 Sodium Chloride (Normal Saline) Confirm Administered Dose 20 mls @ as directed .ROUTE .STK-MED ONE Stop: 10/15/17 11:54 Clindamycin Phosphate 300 mg/ (Premix) 50 mls @ 100 mls/hr IV Q6H [facility] Last Admin: 10/18/17 15:08 Dose: 100 mls/hr Ibuprofen (Motrin) 800 mg PO Q6H PRN PRN Reason: Pain Last Admin: 10/17/17 00:55 Dose: 800 mg Insulin Aspart (Novolog) 7 unit SUBCUT TIDAC [facility] Last Admin: 10/17/17 06:57 Dose: 7 units Insulin Glargine (Lantus Solostar) 15 units SUBCUT DAILY [facility] Last Admin: 10/16/17 09:28 Dose: 15 units Insulin Glargine (Lantus Solostar) 17 units SUBCUT DAILY [facility] Last Admin: 10/17/17 08:34 Dose: 17 units Insulin Glargine (Lantus Solostar) 2 units SUBCUT ONETIME ONE Stop: 10/16/17 11:40 Last Admin: 10/16/17 12:35 Dose: 2 units Ketorolac Tromethamine (Toradol) Confirm Administered Dose 30 mg .ROUTE .STK- MED ONE Stop: 10/15/17 11:54 Lidocaine (Xylocaine-Mpf 2%) Confirm Administered Dose 5 ml .ROUTE .STK-MED ONE Stop: 10/15/17 11:51 Midazolam HCl (Versed 1 Mg/Ml) Confirm Administered Dose 2 mg .ROUTE .STK-MED ONE Stop: 10/15/17 11:53 Morphine Sulfate (Morphine) 2 mg IVPUSH Q2H PRN PRN Reason: Pain Last Admin: 10/15/17 22:58 Dose: 2 mg Ondansetron HCl (Zofran) Confirm Administered Dose 4 mg .ROUTE .STK-MED ONE Stop: 10/15/17 11:54 Oxycodone HCl (Oxycodone) 5 mg PO Q3H PRN PRN Reason: Pain Last Admin: 10/15/17 23:43 Dose: 5 mg Propofol (Diprivan 20 Ml) Confirm Administered Dose 200 mg .ROUTE .STK-MED ONE Stop: 10/15/17 11:53 Propofol (Diprivan 20 Ml) Confirm Administered Dose 200 mg .ROUTE .STK-MED ONE Stop: 10/15/17 14:17 - Exam General: Alert, Oriented, Cooperative HEENT: EOMI Extremities: Redness (still much unchanged and without significant improvement. I would expect much better given the sensitivities. ) Skin: Warm, Dry, Intact Wound/Incisions: Healing Well, No Drainage (from wounds. ) - Problem List & Annotations (1) Tenosynovitis of finger and hand SNOMED Code(s): 310157186 Code(s): M65.9 - SYNOVITIS AND TENOSYNOVITIS, UNSPECIFIED Status: Acute Priority: High Current Visit: Yes (2) Frostbite SNOMED Code(s): 084984975 Code(s): T33.90XA - SUPERFICIAL FROSTBITE OF UNSPECIFIED SITES, INIT ENCNTR Status: Acute Priority: High Current Visit: No Qualifiers: Encounter type: sequela Qualified Code(s): T33.90XS - Superficial frostbite of unspecified sites, sequela - Problem List Review Problem List Initiated/Reviewed/Updated: Yes - My Orders Last 24 Hours: My Active Orders 10/17/17 19:22 Transfer Patient (Change bed) [ADT] Routine 10/17/17 19:56 Admission Status [Patient Status] [ADT] Routine 10/18/17 18:00 DAPTOmycin [Cubicin] 900 mg Sodium Chloride 0.9% [Normal Saline] 18 ml IV Q24H 10/19/17 08:00 BASIC METABOLIC PANEL,BMP [CHEM] Routine CBC WITH AUTO DIFF [HEME] Routine - Assessment Assessment:: POD 3 I and D for tenosynovitis. Improvements marginal still needing IV therapy and pain control. - Plan Plan:: Continue pain control and elevation. Wound cares and medications. D/C clindamycin and start daptomycin. OR tomorrow if no improvements. Appreciate hospital involvement for diabetic control. ems educator tomorrow. AM labs
[2017-10-18] MEDS: DAPTOMYCIN IV SCH (18:29)
[2017-10-18] MEDS: SODIUM CHLORIDE 0.9% IV SCH (18:29)
[2017-10-18] MEDS: Acetaminophen 325 MG Tab PO PRN (21:36)
[2017-10-19] MEDS: Morphine 4 MG/ML Syringe IVPUSH PRN ×3 (02:16→13:34)
[2017-10-19] MEDS: Piperacillin/Tazobactam 3.375 GM in Sodium Chloride 0.9% 50 ML IV SCH (05:01)
[2017-10-19] MEDS: oxyCODONE 5 MG Tab PO PRN ×4 (05:01→23:14)
[2017-10-19] MEDS: Lactated Ringers 1,000 ML IV SCH ×2 (07:23→16:29)
[2017-10-19] MEDS: Insulin Aspart 100 Units/ML 3 ML Pen SUBCUT SCH ×3 (07:30→17:17)
[2017-10-19] MEDS: Insulin Glargine,Human Rec. Analog 100 Units/ML 3 ML Pen SUBCUT SCH (08:11)
[2017-10-19] MEDS: Penicillin G Potassium 2.5 MILLUNITS in Dextrose 5% in Water 100 ML IV SCH ×10 (09:00→23:14)
--- NOTE | 2017-10-19 12:39 | PCM.PN ---
- General Info Date of Service: 10/19/17 Admission Dx/Problem (Free Text): Admission Diagnosis/Problem Admission Diagnosis/Problem Tenosynovitis of finger, hand, or wrist Subjective Update: Patient doing well other than expected hand pain and swelling. Appears comfortable. Denies history of IVDA, denies exposure to HIV, denies history of blood transfusion. Functional Status: Reports: Pain Controlled, Tolerating Diet, Ambulating, Urinating - Review of Systems General: Reports: No Symptoms HEENT: Reports: No Symptoms Pulmonary: Reports: No Symptoms Cardiovascular: Reports: No Symptoms Gastrointestinal: Reports: No Symptoms Genitourinary: Reports: No Symptoms Musculoskeletal: Reports: No Symptoms, Hand Pain Skin: Reports: No Symptoms Neurological: Reports: No Symptoms Psychiatric: Reports: No Symptoms - Patient Data Vitals - Most Recent: Last Vital Signs Temp 36.4 C 10/19/17 11:49 Pulse 95 10/19/17 11:49 Resp 22 H 10/19/17 11:49 BP 143/93 H 10/19/17 11:49 Pulse Ox 96 10/19/17 11:49 Weight - Most Recent: 90.718 kg I&O - Last 24 Hours: Intake & Output 10/18/17 10/19/17 10/19/17 22:59 06:59 14:59 Intake Total 4976 300 100 Output Total 1620 1500 Balance 3356 -1200 100 Lab Results Last 24 Hours: Laboratory Results - last 24 hr 10/18/17 10/18/17 10/18/17 Range/Units 16:25 21:28 22:11 WBC (4.0-11.0) K/uL RBC (4.50-5.90) M/uL Hgb (13.0-17.0) g/dL Hct (38.0-50.0) % MCV (80.0-98.0) fL MCH (27.0-32.0) pg MCHC (31.0-37.0) g/dL RDW Std Deviation (28.0-62.0) fl RDW Coeff of Juan Alberto (11.0-15.0) % Plt Count (150-400) K/uL MPV (7.40-12.00) fL Add Manual Diff Neutrophils % (Manual) (48.0-80.0) % Band Neutrophils % % Lymphocytes % (Manual) (16.0-40.0) % Monocytes % (Manual) (0.0-15.0) % Eosinophils % (Manual) (0.0-7.0) % Nucleated RBC % /100WBC Absolute Seg Neuts (1.4-5.7) Band Neutrophils # Lymphocytes # (Manual) (0.6-2.4) Monocytes # (Manual) (0.0-0.8) Eosinophils # (Manual) (0.0-0.7) Nucleated RBCs # K/uL ESR 38 H (0-14) mm/hr Sodium (136-148) mmol/L Potassium (3.5-5.1) mmol/L Chloride (98-107) mmol/L Carbon Dioxide (21.0-32.0) mmol/L BUN (7.0-18.0) mg/dL Creatinine (0.8-1.3) mg/dL Est Cr Clr Drug Dosing mL/min Estimated GFR (MDRD) ml/min Glucose (74-106) mg/dL POC Glucose 302 H 155 H (60-110) mg/dL Calcium (8.5-10.1) mg/dL Total Bilirubin (0.2-1.0) mg/dL AST (15-37) IU/L ALT (14-63) IU/L Alkaline Phosphatase (46-116) U/L Total Protein (6.4-8.2) g/dL Albumin (3.4-5.0) g/dL Globulin (2.0-3.5) g/dL Albumin/Globulin Ratio (1.3-2.8) 10/19/17 10/19/17 10/19/17 Range/Units 06:18 08:08 08:08 WBC 18.39 H (4.0-11.0) K/uL RBC 4.26 L (4.50-5.90) M/uL Hgb 12.3 L (13.0-17.0) g/dL Hct 35.8 L (38.0-50.0) % MCV 84.0 (80.0-98.0) fL MCH 28.9 (27.0-32.0) pg MCHC 34.4 (31.0-37.0) g/dL RDW Std Deviation 38.3 (28.0-62.0) fl RDW Coeff of Juan Alberto 13 (11.0-15.0) % Plt Count 260 (150-400) K/uL MPV 10.50 (7.40-12.00) fL Add Manual Diff YES Neutrophils % (Manual) 75 (48.0-80.0) % Band Neutrophils % 7 % Lymphocytes % (Manual) 13 L (16.0-40.0) % Monocytes % (Manual) 3 (0.0-15.0) % Eosinophils % (Manual) 2 (0.0-7.0) % Nucleated RBC % 0.0 /100WBC Absolute Seg Neuts 13.8 H (1.4-5.7) Band Neutrophils # 1.3 Lymphocytes # (Manual) 2.4 (0.6-2.4) Monocytes # (Manual) 0.6 (0.0-0.8) Eosinophils # (Manual) 0.4 (0.0-0.7) Nucleated RBCs # 0 K/uL ESR 80 H (0-14) mm/hr Sodium 131 L (136-148) mmol/L Potassium 4.2 (3.5-5.1) mmol/L Chloride 97 L (98-107) mmol/L Carbon Dioxide 27.2 (21.0-32.0) mmol/L BUN 24 H (7.0-18.0) mg/dL Creatinine 1.7 H (0.8-1.3) mg/dL Est Cr Clr Drug Dosing 55.47 mL/min Estimated GFR (MDRD) 43.4 ml/min Glucose 230 H (74-106) mg/dL POC Glucose 155 H (60-110) mg/dL Calcium 8.7 (8.5-10.1) mg/dL Total Bilirubin 0.4 (0.2-1.0) mg/dL AST 24 (15-37) IU/L ALT 18 (14-63) IU/L Alkaline Phosphatase 104 (46-116) U/L Total Protein 6.2 L (6.4-8.2) g/dL Albumin 1.7 L (3.4-5.0) g/dL Globulin 4.5 H (2.0-3.5) g/dL Albumin/Globulin Ratio 0.4 L (1.3-2.8) /15/18 Range/Units 11:27 WBC (4.0-11.0) K/uL RBC (4.50-5.90) M/uL Hgb (13.0-17.0) g/dL Hct (38.0-50.0) % MCV (80.0-98.0) fL MCH (27.0-32.0) pg MCHC (31.0-37.0) g/dL RDW Std Deviation (28.0-62.0) fl RDW Coeff of Juan Alberto (11.0-15.0) % Plt Count (150-400) K/uL MPV (7.40-12.00) fL Add Manual Diff Neutrophils % (Manual) (48.0-80.0) % Band Neutrophils % % Lymphocytes % (Manual) (16.0-40.0) % Monocytes % (Manual) (0.0-15.0) % Eosinophils % (Manual) (0.0-7.0) % Nucleated RBC % /100WBC Absolute Seg Neuts (1.4-5.7) Band Neutrophils # Lymphocytes # (Manual) (0.6-2.4) Monocytes # (Manual) (0.0-0.8) Eosinophils # (Manual) (0.0-0.7) Nucleated RBCs # K/uL ESR (0-14) mm/hr Sodium (136-148) mmol/L Potassium (3.5-5.1) mmol/L Chloride (98-107) mmol/L Carbon Dioxide (21.0-32.0) mmol/L BUN (7.0-18.0) mg/dL Creatinine (0.8-1.3) mg/dL Est Cr Clr Drug Dosing mL/min Estimated GFR (MDRD) ml/min Glucose (74-106) mg/dL POC Glucose 208 H (60-110) mg/dL Calcium (8.5-10.1) mg/dL Total Bilirubin (0.2-1.0) mg/dL AST (15-37) IU/L ALT (14-63) IU/L Alkaline Phosphatase (46-116) U/L Total Protein (6.4-8.2) g/dL Albumin (3.4-5.0) g/dL Globulin (2.0-3.5) g/dL Albumin/Globulin Ratio (1.3-2.8) Med Orders - Current: Current Medications Acetaminophen (Tylenol) 650 mg PO Q6H PRN PRN Reason: Fever Last Admin: 10/18/17 21:36 Dose: 650 mg Diphenhydramine HCl (Benadryl) 25 mg PO Q6H PRN PRN Reason: Itching Last Admin: 10/18/17 01:02 Dose: 25 mg Lactated Ringer's (Ringers, Lactated) 1,000 mls @ 125 mls/hr IV ASDIRECTED [facility] Last Admin: 10/19/17 07:23 Dose: 125 mls/hr Daptomycin 900 mg/ Sodium (Chloride) 18 mls @ 540 mls/hr IV Q24H [facility] Last Admin: 10/18/17 18:29 Dose: 540 mls/hr Penicillin G Potassium 2.5 (millunits/ Dextrose/Water) 100 mls @ 200 mls/hr IV Q4H [facility] Last Admin: 10/19/17 09:00 Dose: 200 mls/hr Insulin Aspart (Novolog) 9 unit SUBCUT TIDAC [facility] Last Admin: 10/19/17 12:00 Dose: 9 units Insulin Glargine (Lantus Solostar) 19 units SUBCUT DAILY [facility] Last Admin: 10/19/17 08:11 Dose: 19 units Morphine Sulfate (Morphine) 2 - 4 mg IVPUSH Q2H PRN PRN Reason: Pain Last Admin: 10/19/17 08:10 Dose: 4 mg Ondansetron HCl (Zofran Odt) 4 mg PO Q4H PRN PRN Reason: Nausea/Vomiting Oxycodone HCl (Oxycodone) 5 - 10 mg PO Q3H PRN PRN Reason: Pain Last Admin: 10/19/17 10:01 Dose: 10 mg Discontinued Medications Bupivacaine HCl/Epinephrine Bitart (Marcaine 0.25%/Epinephrine 1:200,000) 10 ml INJECT ONETIME ONE Stop: 10/15/17 08:01 Last Admin: 10/15/17 15:14 Dose: Not Given Cefazolin Sodium (Ancef) Confirm Administered Dose 2 gm .ROUTE .STK-MED ONE Stop: 10/15/17 11:54 Fentanyl (Sublimaze) Confirm Administered Dose 250 mcg .ROUTE .STK-MED ONE Stop: 10/15/17 11:54 Fentanyl (Sublimaze) 50 mcg IVPUSH .Q5MIN PRN PRN Reason: Pain Cefazolin Sodium/Dextrose 2 gm (/ Premix) 50 mls @ 100 mls/hr IV ONETIME ONE Stop: 10/15/17 08:29 Last Admin: 10/15/17 15:14 Dose: Not Given Bupivacaine HCl/Epinephrine Bitart (Sensorc Mpf 0.25%-Epi 1:[id number]) Confirm Administered Dose 30 mls @ as directed .ROUTE .STK-MED ONE Stop: 10/15/17 07:25 Sodium Chloride (Normal Saline) Confirm Administered Dose 20 mls @ as directed .ROUTE .STK-MED ONE Stop: 10/15/17 11:54 Piperacillin Sod/Tazobactam (Sod 3.375 gm/ Sodium Chloride) 50 mls @ 100 mls/ hr IV Q6H [facility] Last Admin: 10/19/17 05:01 Dose: 100 mls/hr Clindamycin Phosphate 300 mg/ (Premix) 50 mls @ 100 mls/hr IV Q6H [facility] Last Admin: 10/18/17 15:08 Dose: 100 mls/hr Ibuprofen (Motrin) 800 mg PO Q6H PRN PRN Reason: Pain Last Admin: 10/17/17 00:55 Dose: 800 mg Insulin Aspart (Novolog) 7 unit SUBCUT TIDAC [facility] Last Admin: 10/17/17 06:57 Dose: 7 units Insulin Glargine (Lantus Solostar) 15 units SUBCUT DAILY [facility] Last Admin: 10/16/17 09:28 Dose: 15 units Insulin Glargine (Lantus Solostar) 17 units SUBCUT DAILY [facility] Last Admin: 10/17/17 08:34 Dose: 17 units Insulin Glargine (Lantus Solostar) 2 units SUBCUT ONETIME ONE Stop: 10/16/17 11:40 Last Admin: 10/16/17 12:35 Dose: 2 units Ketorolac Tromethamine (Toradol) Confirm Administered Dose 30 mg .ROUTE .STK- MED ONE Stop: 10/15/17 11:54 Lidocaine (Xylocaine-Mpf 2%) Confirm Administered Dose 5 ml .ROUTE .STK-MED ONE Stop: 10/15/17 11:51 Midazolam HCl (Versed 1 Mg/Ml) Confirm Administered Dose 2 mg .ROUTE .STK-MED ONE Stop: 10/15/17 11:53 Morphine Sulfate (Morphine) 2 mg IVPUSH Q2H PRN PRN Reason: Pain Last Admin: 10/15/17 22:58 Dose: 2 mg Ondansetron HCl (Zofran) Confirm Administered Dose 4 mg .ROUTE .STK-MED ONE Stop: 10/15/17 11:54 Oxycodone HCl (Oxycodone) 5 mg PO Q3H PRN PRN Reason: Pain Last Admin: 10/15/17 23:43 Dose: 5 mg Propofol (Diprivan 20 Ml) Confirm Administered Dose 200 mg .ROUTE .STK-MED ONE Stop: 10/15/17 11:53 Propofol (Diprivan 20 Ml) Confirm Administered Dose 200 mg .ROUTE .STK-MED ONE Stop: 10/15/17 14:17 - Exam General: Alert, Oriented, Cooperative, No Acute Distress HEENT: Pupils Equal, Pupils Reactive Neck: Supple Lungs: Clear to Auscultation, Normal Respiratory Effort Cardiovascular: Regular Rate, Regular Rhythm GI/Abdominal Exam: Normal Bowel Sounds, Soft, Non-Tender, No Organomegaly, No Distention. No: Guarding, Rigid, Rebound Extremities: No Pedal Edema Wound/Incisions: Healing Well Neurological: No New Focal Deficit Psy/Mental Status: Alert, Normal Affect, Normal Mood - Problem List Review Problem List Initiated/Reviewed/Updated: Yes - My Orders Last 24 Hours: My Active Orders 10/18/17 21:43 Blood Culture x2 Reflex Set [OM.PC] Stat 10/18/17 22:11 CULTURE BLOOD [BC] Stat 10/18/17 22:22 CULTURE BLOOD [BC] Stat 10/19/17 12:04 HIV12 AG/AB 4TH GEN W/REFLEX [CHEM] Routine - Assessment Assessment:: POD 3 I and D for tenosynovitis. Improvements marginal still needing IV therapy and pain control. - Plan Plan:: 47 yo male with history of Uncontrolled NIDDM and non-adherence admitted for left hand abscess. Patient admitted to Plastic Surgery. Medicine consulted for multiple medical conditions #Tenosynovitis s/p I&D day #4 #Leukocytosis #Elevated ESR -patient afebrile with no systemic symptoms, denies exposure to HIV, denies history of IVDA, denies history of blood transfusion -WBC count: 9.9 (10/15), 14.5 (10/16), 17.9 (10/18), 18.4 (10/19) -ESR: 38 (10/18), 80 (10/19) -previously on Zosyn 10/15 to 10/19 -previously on on Clinda 300 mg IV Q from 10/16 to 10/18 -currently on Dapto 900 mg IV Q24H, started 10/18 -currently on PCN G 2.5 milliunits IV Q4H, started 10/19 Plan: -ordered blood cultures -ordered daily CBC & ESR -ordered HIV AB -continue to monitor -Plastic surgery considering repeat I&D today #Subacute Kidney Injury #Uncontrolled Diabetes #Non-adherence to therapy -high suspicion of underlying CKD however baseline renal function unavailable -Cr 1.7, GFR 43 Plan: -recommend starting IV NS (order not placed) -will place order for UA, Bryce, UCr, Uprotein, Umicroalbumin & BMP -will place order for daily BMP while hospitalized #Hyponatremia, mild, asymptomatic -corrected Na 133 -continue to monitor #Elevated BP without diagnosis of HTN -presumed secondary to pain -no indication for medical management -continue to monitor #Hyperglycemia #NIDDM, Uncontrolled #Non-adherence to treatment -Patient previously Metformin which he discontinued on his own -HbA1C 12.5%, BG ranging from 300-400 at admission -currently on Lantus 19 units for basal and Novolog 9 units for prandial -Premeal BG levels 200-300, Postprandial BG <180 Plan: -increase Lantus to 20 units QD & continue Novolog 9 units TIDAC -DM educator consulted - patient was given 1 month supply of samples of Lantus, Novolog, Pen needles, lancets and test strips -once patient discharged plan for Lantus 20 units QD, Novolog 10 units TIDAC & Metformin 500 mg QD. He will be given prescription for Metformin 500 mg BID for 30 days, he was instructed to use 500 mg QD for 1 month then increase to BID to decrease risk of side effects -f/u with pcp arranged
[2017-10-19] MEDS: SODIUM CHLORIDE 0.9% IV SCH (18:08)
[2017-10-19] MEDS: DAPTOMYCIN IV SCH (18:08)
--- NOTE | 2017-10-19 18:33 | OR ---
SURGEON: HEIDE MOYA MD DATE OF PROCEDURE: 10/15/2017 PREOPERATIVE DIAGNOSIS: Left hand finger infection tracking along the tendon. POSTOPERATIVE DIAGNOSIS: Left hand finger infection tracking along the tendon. PROCEDURE: Incision and drainage of left middle finger flexor tenosynovitis with additional left carpal tunnel release. JOINER APPRENTICE: None. ANESTHESIA: Local MAC. INDICATIONS: Mr. Chew is a 47-year-old gentleman with significantly elevated blood sugars, noncompliant with medical management, now with a finger tip infection status post revision amputation for frostbite. Risks and benefits were discussed with him for I and D considering he has failed both oral and IV antibiotics. Risks were including, but not limited to, bleeding, infection, damage to underlying or overlying structures, possible need for future interventions, possible scarring. PROCEDURE IN DETAIL: After informed consent was obtained and placed on the chart, the patient was brought to the operating theater and laid in the supine position. After adequate local MAC anesthesia was obtained, the area was prepped and draped and a time-out was completed to confirm side and site. Attention was then paid to the distal aspect of the left middle finger. This was opened and a Cordell type incision was designed into the palm. Dissection was carried through until localization of the flexor tendon sheath, taking care to protect the neurovascular bundles. The A1 jaya was released and significant amount of purulent material was located here. This was significantly more than expected given the limited clinical findings. Given the significant purulence here, a carpal tunnel incision was made to not only release the transverse carpal ligament due to pain and swelling, but to evaluate for extension of the flexor tenosynovitis to this aspect. No pus was appreciated in the carpal tunnel and the tendons were freed. Copious irrigation was undertaken from proximal to distal through the carpal tunnel into the A1 jaya area and then distally through the finger. 3 L of normal saline and cysto tubing was used to copiously irrigate this area after adequate gross debridement. The water was running clear. There was no additional purulence appreciated. No deep space infections (intermetacarpal space, thenar space, parona's space) were appreciated in exploration. No fascial involvement or tracking at this time. Once copiously irrigated, the area was then tacked closed using 5-0 nylon stitches in a horizontal mattress fashion once hemostasis was obtained. Once adequately closed, the wounds were dressed with Xeroform fluffs and a Kerlix gauze dressing. The patient tolerated this well. All counts needles were correct at the end of the case. FOLLOWUP INSTRUCTIONS: Previous cultures had been taken the previous day and no additional cultures were taken today given the IV antibiotics. In addition, the patient will be maintained in the hospital given the extensive involvement without significant outward signs of infection. His blood sugars are also quite elevated and labs today show some dehydration with concerns for ketoacidosis. We will admit and maintain the patient in the hospital with assistance from the hospitalist for blood sugar control. We will continue antibiotics IV and rehydration therapy. All questions answered today and we will keep him for pain control as well. HEGGTHE / MODL /[id number] MTDD
[2017-10-20] MEDS: Lactated Ringers 1,000 ML IV SCH ×2 (02:19→11:37)
[2017-10-20] MEDS: Penicillin G Potassium 2.5 MILLUNITS in Dextrose 5% in Water 100 ML IV SCH ×12 (03:44→23:32)
[2017-10-20] MEDS: Morphine 4 MG/ML Syringe IVPUSH PRN ×5 (03:49→19:31)
[2017-10-20] MEDS: oxyCODONE 5 MG Tab PO PRN ×3 (05:53→23:34)
[2017-10-20] MEDS: Insulin Aspart 100 Units/ML 3 ML Pen SUBCUT SCH ×3 (07:07→18:07)
--- NOTE | 2017-10-20 08:29 | PCM.CONSN ---
- General Info Date of Service: 10/20/17 - Review of Systems Systems Review Comment:: denies diarrhea, or abdominal pain - Patient Data Vitals - Most Recent: Last Vital Signs Temp 36.7 C 10/20/17 07:41 Pulse 104 H 10/20/17 07:41 Resp 16 10/20/17 07:41 BP 139/88 10/20/17 07:41 Pulse Ox 95 10/20/17 07:41 Weight - Most Recent: 94.347 kg I&O - Last 24 Hours: Intake & Output 10/19/17 10/20/17 10/20/17 22:59 06:59 14:59 Intake Total 2719 2279 Output Total 2250 1400 Balance 469 879 Lab Results Last 24 Hours: Laboratory Results - last 24 hr 10/19/17 10/19/17 10/19/17 Range/Units 08:08 08:08 08:08 WBC 18.39 H (4.0-11.0) K/uL RBC 4.26 L (4.50-5.90) M/uL Hgb 12.3 L (13.0-17.0) g/dL Hct 35.8 L (38.0-50.0) % MCV 84.0 (80.0-98.0) fL MCH 28.9 (27.0-32.0) pg MCHC 34.4 (31.0-37.0) g/dL RDW Std Deviation 38.3 (28.0-62.0) fl RDW Coeff of Juan Alberto 13 (11.0-15.0) % Plt Count 260 (150-400) K/uL MPV 10.50 (7.40-12.00) fL Add Manual Diff YES Neutrophils % (Manual) 75 (48.0-80.0) % Band Neutrophils % 7 % Lymphocytes % (Manual) 13 L (16.0-40.0) % Monocytes % (Manual) 3 (0.0-15.0) % Eosinophils % (Manual) 2 (0.0-7.0) % Nucleated RBC % 0.0 /100WBC Absolute Seg Neuts 13.8 H (1.4-5.7) Band Neutrophils # 1.3 Lymphocytes # (Manual) 2.4 (0.6-2.4) Monocytes # (Manual) 0.6 (0.0-0.8) Eosinophils # (Manual) 0.4 (0.0-0.7) Nucleated RBCs # 0 K/uL ESR 80 H (0-14) mm/hr Sodium 131 L (136-148) mmol/L Potassium 4.2 (3.5-5.1) mmol/L Chloride 97 L (98-107) mmol/L Carbon Dioxide 27.2 (21.0-32.0) mmol/L BUN 24 H (7.0-18.0) mg/dL Creatinine 1.7 H (0.8-1.3) mg/dL Est Cr Clr Drug Dosing 55.47 mL/min Estimated GFR (MDRD) 43.4 ml/min Glucose 230 H (74-106) mg/dL POC Glucose (60-110) mg/dL Calcium 8.7 (8.5-10.1) mg/dL Total Bilirubin 0.4 (0.2-1.0) mg/dL AST 24 (15-37) IU/L ALT 18 (14-63) IU/L Alkaline Phosphatase 104 (46-116) U/L Total Protein 6.2 L (6.4-8.2) g/dL Albumin 1.7 L (3.4-5.0) g/dL Globulin 4.5 H (2.0-3.5) g/dL Albumin/Globulin Ratio 0.4 L (1.3-2.8) Urine Color Urine Appearance Urine pH (5.0-8.0) Ur Specific Malcolm (1.001-1.035) Urine Protein (NEGATIVE) mg/dL Urine Glucose (UA) (NEGATIVE) mg/dL Urine Ketones (NEGATIVE) mg/dL Urine Occult Blood (NEGATIVE) Urine Nitrite (NEGATIVE) Urine Bilirubin (NEGATIVE) Urine Urobilinogen (<2.0) EU/dL Ur Leukocyte Esterase (NEGATIVE) Urine RBC (0-2/HPF) Urine WBC (0-5/HPF) Ur Epithelial Cells (NONE-FEW) Urine Bacteria (NEGATIVE) Ur Random Creatinine mg/dL Ur Random Microalbumin (<20) mg/L Ur Random Sodium (40.0-220.0) mmol/L HIV 1&2 Ag/Ab, 4th Gen 0.2 (<1.0) 10/19/17 10/19/17 10/19/17 Range/Units 11:27 14:02 14:10 WBC (4.0-11.0) K/uL RBC (4.50-5.90) M/uL Hgb (13.0-17.0) g/dL Hct (38.0-50.0) % MCV (80.0-98.0) fL MCH (27.0-32.0) pg MCHC (31.0-37.0) g/dL RDW Std Deviation (28.0-62.0) fl RDW Coeff of Juan Alberto (11.0-15.0) % Plt Count (150-400) K/uL MPV (7.40-12.00) fL Add Manual Diff Neutrophils % (Manual) (48.0-80.0) % Band Neutrophils % % Lymphocytes % (Manual) (16.0-40.0) % Monocytes % (Manual) (0.0-15.0) % Eosinophils % (Manual) (0.0-7.0) % Nucleated RBC % /100WBC Absolute Seg Neuts (1.4-5.7) Band Neutrophils # Lymphocytes # (Manual) (0.6-2.4) Monocytes # (Manual) (0.0-0.8) Eosinophils # (Manual) (0.0-0.7) Nucleated RBCs # K/uL ESR (0-14) mm/hr Sodium 128 L (136-148) mmol/L Potassium 4.2 (3.5-5.1) mmol/L Chloride 97 L (98-107) mmol/L Carbon Dioxide 26.2 (21.0-32.0) mmol/L BUN 22 H (7.0-18.0) mg/dL Creatinine 1.6 H (0.8-1.3) mg/dL Est Cr Clr Drug Dosing 58.93 mL/min Estimated GFR (MDRD) 46.6 ml/min Glucose 225 H (74-106) mg/dL POC Glucose 208 H (60-110) mg/dL Calcium 8.8 (8.5-10.1) mg/dL Total Bilirubin (0.2-1.0) mg/dL AST (15-37) IU/L ALT (14-63) IU/L Alkaline Phosphatase (46-116) U/L Total Protein (6.4-8.2) g/dL Albumin (3.4-5.0) g/dL Globulin (2.0-3.5) g/dL Albumin/Globulin Ratio (1.3-2.8) Urine Color YELLOW Urine Appearance SLT CLOUDY Urine pH 6.5 (5.0-8.0) Ur Specific Malcolm 1.020 (1.001-1.035) Urine Protein 100 (NEGATIVE) mg/dL Urine Glucose (UA) 100 H (NEGATIVE) mg/dL Urine Ketones NEGATIVE (NEGATIVE) mg/dL Urine Occult Blood MODERATE (NEGATIVE) Urine Nitrite NEGATIVE (NEGATIVE) Urine Bilirubin NEGATIVE (NEGATIVE) Urine Urobilinogen 1.0 (<2.0) EU/dL Ur Leukocyte Esterase NEGATIVE (NEGATIVE) Urine RBC 5-7 (0-2/HPF) Urine WBC 0-1 (0-5/HPF) Ur Epithelial Cells RARE (NONE-FEW) Urine Bacteria RARE (NEGATIVE) Ur Random Creatinine mg/dL Ur Random Microalbumin (<20) mg/L Ur Random Sodium (40.0-220.0) mmol/L HIV 1&2 Ag/Ab, 4th Gen (<1.0) 10/19/17 10/19/17 10/20/17 Range/Units 14:10 16:26 05:20 WBC (4.0-11.0) K/uL RBC (4.50-5.90) M/uL Hgb (13.0-17.0) g/dL Hct (38.0-50.0) % MCV (80.0-98.0) fL MCH (27.0-32.0) pg MCHC (31.0-37.0) g/dL RDW Std Deviation (28.0-62.0) fl RDW Coeff of Juan Alberto (11.0-15.0) % Plt Count (150-400) K/uL MPV (7.40-12.00) fL Add Manual Diff Neutrophils % (Manual) (48.0-80.0) % Band Neutrophils % % Lymphocytes % (Manual) (16.0-40.0) % Monocytes % (Manual) (0.0-15.0) % Eosinophils % (Manual) (0.0-7.0) % Nucleated RBC % /100WBC Absolute Seg Neuts (1.4-5.7) Band Neutrophils # Lymphocytes # (Manual) (0.6-2.4) Monocytes # (Manual) (0.0-0.8) Eosinophils # (Manual) (0.0-0.7) Nucleated RBCs # K/uL ESR (0-14) mm/hr Sodium 130 L (136-148) mmol/L Potassium 4.0 (3.5-5.1) mmol/L Chloride 98 (98-107) mmol/L Carbon Dioxide 28.0 (21.0-32.0) mmol/L BUN 20 H (7.0-18.0) mg/dL Creatinine 1.6 H (0.8-1.3) mg/dL Est Cr Clr Drug Dosing 58.93 mL/min Estimated GFR (MDRD) 46.6 ml/min Glucose 180 H (74-106) mg/dL POC Glucose 185 H (60-110) mg/dL Calcium 8.7 (8.5-10.1) mg/dL Total Bilirubin (0.2-1.0) mg/dL AST (15-37) IU/L ALT (14-63) IU/L Alkaline Phosphatase (46-116) U/L Total Protein (6.4-8.2) g/dL Albumin (3.4-5.0) g/dL Globulin (2.0-3.5) g/dL Albumin/Globulin Ratio (1.3-2.8) Urine Color Urine Appearance Urine pH (5.0-8.0) Ur Specific Malcolm (1.001-1.035) Urine Protein (NEGATIVE) mg/dL Urine Glucose (UA) (NEGATIVE) mg/dL Urine Ketones (NEGATIVE) mg/dL Urine Occult Blood (NEGATIVE) Urine Nitrite (NEGATIVE) Urine Bilirubin (NEGATIVE) Urine Urobilinogen (<2.0) EU/dL Ur Leukocyte Esterase (NEGATIVE) Urine RBC (0-2/HPF) Urine WBC (0-5/HPF) Ur Epithelial Cells (NONE-FEW) Urine Bacteria (NEGATIVE) Ur Random Creatinine <13.0 mg/dL Ur Random Microalbumin 100 (<20) mg/L Ur Random Sodium 113.0 (40.0-220.0) mmol/L HIV 1&2 Ag/Ab, 4th Gen (<1.0) 10/20/17 10/20/17 Range/Units 05:20 06:19 WBC (4.0-11.0) K/uL RBC (4.50-5.90) M/uL Hgb (13.0-17.0) g/dL Hct (38.0-50.0) % MCV (80.0-98.0) fL MCH (27.0-32.0) pg MCHC (31.0-37.0) g/dL RDW Std Deviation (28.0-62.0) fl RDW Coeff of Juan Alberto (11.0-15.0) % Plt Count (150-400) K/uL MPV (7.40-12.00) fL Add Manual Diff Neutrophils % (Manual) (48.0-80.0) % Band Neutrophils % % Lymphocytes % (Manual) (16.0-40.0) % Monocytes % (Manual) (0.0-15.0) % Eosinophils % (Manual) (0.0-7.0) % Nucleated RBC % /100WBC Absolute Seg Neuts (1.4-5.7) Band Neutrophils # Lymphocytes # (Manual) (0.6-2.4) Monocytes # (Manual) (0.0-0.8) Eosinophils # (Manual) (0.0-0.7) Nucleated RBCs # K/uL ESR 96 H (0-14) mm/hr Sodium (136-148) mmol/L Potassium (3.5-5.1) mmol/L Chloride (98-107) mmol/L Carbon Dioxide (21.0-32.0) mmol/L BUN (7.0-18.0) mg/dL Creatinine (0.8-1.3) mg/dL Est Cr Clr Drug Dosing mL/min Estimated GFR (MDRD) ml/min Glucose (74-106) mg/dL POC Glucose 192 H (60-110) mg/dL Calcium (8.5-10.1) mg/dL Total Bilirubin (0.2-1.0) mg/dL AST (15-37) IU/L ALT (14-63) IU/L Alkaline Phosphatase (46-116) U/L Total Protein (6.4-8.2) g/dL Albumin (3.4-5.0) g/dL Globulin (2.0-3.5) g/dL Albumin/Globulin Ratio (1.3-2.8) Urine Color Urine Appearance Urine pH (5.0-8.0) Ur Specific Malcolm (1.001-1.035) Urine Protein (NEGATIVE) mg/dL Urine Glucose (UA) (NEGATIVE) mg/dL Urine Ketones (NEGATIVE) mg/dL Urine Occult Blood (NEGATIVE) Urine Nitrite (NEGATIVE) Urine Bilirubin (NEGATIVE) Urine Urobilinogen (<2.0) EU/dL Ur Leukocyte Esterase (NEGATIVE) Urine RBC (0-2/HPF) Urine WBC (0-5/HPF) Ur Epithelial Cells (NONE-FEW) Urine Bacteria (NEGATIVE) Ur Random Creatinine mg/dL Ur Random Microalbumin (<20) mg/L Ur Random Sodium (40.0-220.0) mmol/L HIV 1&2 Ag/Ab, 4th Gen (<1.0) Alejo Results Last 24 Hours: Microbiology 10/18/17 22:22 Aerobic Blood Culture - Preliminary Blood - Venous - Lab Draw NO GROWTH AFTER 1 DAY Anaerobic Blood Culture - Preliminary NO GROWTH AFTER 1 DAY 10/18/17 22:11 Aerobic Blood Culture - Preliminary Blood - Venous NO GROWTH AFTER 1 DAY Anaerobic Blood Culture - Preliminary NO GROWTH AFTER 1 DAY Med Orders - Current: Current Medications Acetaminophen (Tylenol) 650 mg PO Q6H PRN PRN Reason: Fever Last Admin: 10/18/17 21:36 Dose: 650 mg Diphenhydramine HCl (Benadryl) 25 mg PO Q6H PRN PRN Reason: Itching Last Admin: 10/18/17 01:02 Dose: 25 mg Lactated Ringer's (Ringers, Lactated) 1,000 mls @ 125 mls/hr IV ASDIRECTED [facility] Last Admin: 10/20/17 02:19 Dose: 125 mls/hr Daptomycin 900 mg/ Sodium (Chloride) 18 mls @ 540 mls/hr IV Q24H [facility] Last Admin: 10/19/17 18:08 Dose: 540 mls/hr Penicillin G Potassium 2.5 (millunits/ Dextrose/Water) 100 mls @ 200 mls/hr IV Q4H [facility] Last Admin: 10/20/17 03:44 Dose: 200 mls/hr Insulin Aspart (Novolog) 9 unit SUBCUT TIDAC [facility] Last Admin: 10/20/17 07:07 Dose: 9 units Insulin Glargine (Lantus Solostar) 20 units SUBCUT DAILY [facility] Morphine Sulfate (Morphine) 2 - 4 mg IVPUSH Q2H PRN PRN Reason: Pain Last Admin: 10/20/17 03:49 Dose: 4 mg Ondansetron HCl (Zofran Odt) 4 mg PO Q4H PRN PRN Reason: Nausea/Vomiting Oxycodone HCl (Oxycodone) 5 - 10 mg PO Q3H PRN PRN Reason: Pain Last Admin: 10/20/17 05:53 Dose: 10 mg Discontinued Medications Bupivacaine HCl/Epinephrine Bitart (Marcaine 0.25%/Epinephrine 1:200,000) 10 ml INJECT ONETIME ONE Stop: 10/15/17 08:01 Last Admin: 10/15/17 15:14 Dose: Not Given Cefazolin Sodium (Ancef) Confirm Administered Dose 2 gm .ROUTE .STK-MED ONE Stop: 10/15/17 11:54 Fentanyl (Sublimaze) Confirm Administered Dose 250 mcg .ROUTE .STK-MED ONE Stop: 10/15/17 11:54 Fentanyl (Sublimaze) 50 mcg IVPUSH .Q5MIN PRN PRN Reason: Pain Cefazolin Sodium/Dextrose 2 gm (/ Premix) 50 mls @ 100 mls/hr IV ONETIME ONE Stop: 10/15/17 08:29 Last Admin: 10/15/17 15:14 Dose: Not Given Bupivacaine HCl/Epinephrine Bitart (Sensorc Mpf 0.25%-Epi 1:[id number]) Confirm Administered Dose 30 mls @ as directed .ROUTE .STK-MED ONE Stop: 10/15/17 07:25 Sodium Chloride (Normal Saline) Confirm Administered Dose 20 mls @ as directed .ROUTE .STK-MED ONE Stop: 10/15/17 11:54 Piperacillin Sod/Tazobactam (Sod 3.375 gm/ Sodium Chloride) 50 mls @ 100 mls/ hr IV Q6H [facility] Last Admin: 10/19/17 05:01 Dose: 100 mls/hr Clindamycin Phosphate 300 mg/ (Premix) 50 mls @ 100 mls/hr IV Q6H [facility] Last Admin: 10/18/17 15:08 Dose: 100 mls/hr Ibuprofen (Motrin) 800 mg PO Q6H PRN PRN Reason: Pain Last Admin: 10/17/17 00:55 Dose: 800 mg Insulin Aspart (Novolog) 7 unit SUBCUT TIDAC [facility] Last Admin: 10/17/17 06:57 Dose: 7 units Insulin Glargine (Lantus Solostar) 15 units SUBCUT DAILY [facility] Last Admin: 10/16/17 09:28 Dose: 15 units Insulin Glargine (Lantus Solostar) 17 units SUBCUT DAILY [facility] Last Admin: 10/17/17 08:34 Dose: 17 units Insulin Glargine (Lantus Solostar) 2 units SUBCUT ONETIME ONE Stop: 10/16/17 11:40 Last Admin: 10/16/17 12:35 Dose: 2 units Insulin Glargine (Lantus Solostar) 19 units SUBCUT DAILY [facility] Last Admin: 10/19/17 08:11 Dose: 19 units Ketorolac Tromethamine (Toradol) Confirm Administered Dose 30 mg .ROUTE .STK- MED ONE Stop: 10/15/17 11:54 Lidocaine (Xylocaine-Mpf 2%) Confirm Administered Dose 5 ml .ROUTE .STK-MED ONE Stop: 10/15/17 11:51 Midazolam HCl (Versed 1 Mg/Ml) Confirm Administered Dose 2 mg .ROUTE .STK-MED ONE Stop: 10/15/17 11:53 Morphine Sulfate (Morphine) 2 mg IVPUSH Q2H PRN PRN Reason: Pain Last Admin: 10/15/17 22:58 Dose: 2 mg Ondansetron HCl (Zofran) Confirm Administered Dose 4 mg .ROUTE .STK-MED ONE Stop: 10/15/17 11:54 Oxycodone HCl (Oxycodone) 5 mg PO Q3H PRN PRN Reason: Pain Last Admin: 10/15/17 23:43 Dose: 5 mg Propofol (Diprivan 20 Ml) Confirm Administered Dose 200 mg .ROUTE .STK-MED ONE Stop: 10/15/17 11:53 Propofol (Diprivan 20 Ml) Confirm Administered Dose 200 mg .ROUTE .STK-MED ONE Stop: 10/15/17 14:17 - Exam General: Alert, Oriented Lungs: Clear to Auscultation, Normal Respiratory Effort Cardiovascular: Regular Rate, Regular Rhythm GI/Abdominal Exam: Normal Bowel Sounds, Soft, Non-Tender Extremities: No: Pedal Edema Consult PN Assessment/Plan Procedures: Procedures AMPUTATION OF FINGER/THUMB (09/22/17) ELECTROCARDIOGRAM TRACING (09/22/17) EMERGENCY DEPT VISIT (06/24/17) GLUCOSE BLOOD TEST (09/22/17) IMMUNIZATION ADMIN (06/24/17) TDAP VACCINE 7 YRS/> IM (06/24/17) TISSUE EXAM BY PATHOLOGIST (09/22/17) Problem List Initiated/Reviewed/Updated: Yes Plan: 47 yo male with history of Uncontrolled NIDDM and non-adherence admitted for left hand abscess. Patient admitted to Plastic Surgery. Medicine consulted for multiple medical conditions #Tenosynovitis s/p I&D day #5 Dr. Red plans to take patient back to OR for wash out hand #Subacute Kidney Injury on IV fluids #Uncontrolled Diabetes on lantus 20 units with 9 units of novolog TIDAC
[2017-10-20] MEDS: Insulin Glargine,Human Rec. Analog 100 Units/ML 3 ML Pen SUBCUT SCH (08:55)
--- NOTE | 2017-10-20 09:32 | PCM.PN ---
- General Info Date of Service: 10/19/17 Admission Dx/Problem (Free Text): Admission Diagnosis/Problem Admission Diagnosis/Problem Tenosynovitis of finger, hand, or wrist Subjective Update: Continues to have pain in the hand. No spread but no improvement despite changing to daptomycin last night and will change to Penicillin IV today given sensitivities. We discussed that things are not adding up at this time. Additional lab studies and will also plan repeat I and D if wbc continues elevation. Pain otherwise controlled. Functional Status: Reports: Pain Controlled, Tolerating Diet. Denies: New Symptoms - Review of Systems General: Reports: No Symptoms. Denies: Fever HEENT: Reports: No Symptoms Skin: Reports: Other (redness focalizing into palm) Neurological: Reports: Numbness. Denies: Headache Psychiatric: Reports: No Symptoms - Patient Data Vitals - Most Recent: Last Vital Signs Temp 98.1 F 10/20/17 07:41 Pulse 104 H 10/20/17 07:41 Resp 16 10/20/17 07:41 BP 139/88 10/20/17 07:41 Pulse Ox 95 10/20/17 07:41 Weight - Most Recent: 208 lb I&O - Last 24 Hours: Intake & Output 10/19/17 10/20/17 10/20/17 23:59 07:59 15:59 Intake Total 2719 2279 100 Output Total 2250 1400 Balance 469 879 100 Lab Results Last 24 Hours: Laboratory Results - last 24 hr 10/19/17 10/19/17 10/19/17 Range/Units 08:08 08:08 11:27 WBC (4.0-11.0) K/uL RBC (4.50-5.90) M/uL Hgb (13.0-17.0) g/dL Hct (38.0-50.0) % MCV (80.0-98.0) fL MCH (27.0-32.0) pg MCHC (31.0-37.0) g/dL RDW Std Deviation (28.0-62.0) fl RDW Coeff of Juan Alberto (11.0-15.0) % Plt Count (150-400) K/uL MPV (7.40-12.00) fL Add Manual Diff Nucleated RBC % /100WBC Nucleated RBCs # K/uL ESR 80 H (0-14) mm/hr Sodium (136-148) mmol/L Potassium (3.5-5.1) mmol/L Chloride (98-107) mmol/L Carbon Dioxide (21.0-32.0) mmol/L BUN (7.0-18.0) mg/dL Creatinine (0.8-1.3) mg/dL Est Cr Clr Drug Dosing mL/min Estimated GFR (MDRD) ml/min Glucose (74-106) mg/dL POC Glucose 208 H (60-110) mg/dL Calcium (8.5-10.1) mg/dL Urine Color Urine Appearance Urine pH (5.0-8.0) Ur Specific [place] (1.001-1.035) Urine Protein (NEGATIVE) mg/dL Urine Glucose (UA) (NEGATIVE) mg/dL Urine Ketones (NEGATIVE) mg/dL Urine Occult Blood (NEGATIVE) Urine Nitrite (NEGATIVE) Urine Bilirubin (NEGATIVE) Urine Urobilinogen (<2.0) EU/dL Ur Leukocyte Esterase (NEGATIVE) Urine RBC (0-2/HPF) Urine WBC (0-5/HPF) Ur Epithelial Cells (NONE-FEW) Urine Bacteria (NEGATIVE) Ur Random Creatinine mg/dL Ur Random Microalbumin (<20) mg/L Ur Random Sodium (40.0-220.0) mmol/L HIV 1&2 Ag/Ab, 4th Gen 0.2 (<1.0) 10/19/17 10/19/17 10/19/17 Range/Units 14:02 14:10 14:10 WBC (4.0-11.0) K/uL RBC (4.50-5.90) M/uL Hgb (13.0-17.0) g/dL Hct (38.0-50.0) % MCV (80.0-98.0) fL MCH (27.0-32.0) pg MCHC (31.0-37.0) g/dL RDW Std Deviation (28.0-62.0) fl RDW Coeff of Juan Alberto (11.0-15.0) % Plt Count (150-400) K/uL MPV (7.40-12.00) fL Add Manual Diff Nucleated RBC % /100WBC Nucleated RBCs # K/uL ESR (0-14) mm/hr Sodium 128 L (136-148) mmol/L Potassium 4.2 (3.5-5.1) mmol/L Chloride 97 L (98-107) mmol/L Carbon Dioxide 26.2 (21.0-32.0) mmol/L BUN 22 H (7.0-18.0) mg/dL Creatinine 1.6 H (0.8-1.3) mg/dL Est Cr Clr Drug Dosing 58.93 mL/min Estimated GFR (MDRD) 46.6 ml/min Glucose 225 H (74-106) mg/dL POC Glucose (60-110) mg/dL Calcium 8.8 (8.5-10.1) mg/dL Urine Color YELLOW Urine Appearance SLT CLOUDY Urine pH 6.5 (5.0-8.0) Ur Specific [place] 1.020 (1.001-1.035) Urine Protein 100 (NEGATIVE) mg/dL Urine Glucose (UA) 100 H (NEGATIVE) mg/dL Urine Ketones NEGATIVE (NEGATIVE) mg/dL Urine Occult Blood MODERATE (NEGATIVE) Urine Nitrite NEGATIVE (NEGATIVE) Urine Bilirubin NEGATIVE (NEGATIVE) Urine Urobilinogen 1.0 (<2.0) EU/dL Ur Leukocyte Esterase NEGATIVE (NEGATIVE) Urine RBC 5-7 (0-2/HPF) Urine WBC 0-1 (0-5/HPF) Ur Epithelial Cells RARE (NONE-FEW) Urine Bacteria RARE (NEGATIVE) Ur Random Creatinine <13.0 mg/dL Ur Random Microalbumin 100 (<20) mg/L Ur Random Sodium 113.0 (40.0-220.0) mmol/L HIV 1&2 Ag/Ab, 4th Gen (<1.0) 10/19/17 10/20/17 10/20/17 Range/Units 16:26 05:20 05:20 WBC (4.0-11.0) K/uL RBC (4.50-5.90) M/uL Hgb (13.0-17.0) g/dL Hct (38.0-50.0) % MCV (80.0-98.0) fL MCH (27.0-32.0) pg MCHC (31.0-37.0) g/dL RDW Std Deviation (28.0-62.0) fl RDW Coeff of Juan Alberto (11.0-15.0) % Plt Count (150-400) K/uL MPV (7.40-12.00) fL Add Manual Diff Nucleated RBC % /100WBC Nucleated RBCs # K/uL ESR 96 H (0-14) mm/hr Sodium 130 L (136-148) mmol/L Potassium 4.0 (3.5-5.1) mmol/L Chloride 98 (98-107) mmol/L Carbon Dioxide 28.0 (21.0-32.0) mmol/L BUN 20 H (7.0-18.0) mg/dL Creatinine 1.6 H (0.8-1.3) mg/dL Est Cr Clr Drug Dosing 58.93 mL/min Estimated GFR (MDRD) 46.6 ml/min Glucose 180 H (74-106) mg/dL POC Glucose 185 H (60-110) mg/dL Calcium 8.7 (8.5-10.1) mg/dL Urine Color Urine Appearance Urine pH (5.0-8.0) Ur Specific [place] (1.001-1.035) Urine Protein (NEGATIVE) mg/dL Urine Glucose (UA) (NEGATIVE) mg/dL Urine Ketones (NEGATIVE) mg/dL Urine Occult Blood (NEGATIVE) Urine Nitrite (NEGATIVE) Urine Bilirubin (NEGATIVE) Urine Urobilinogen (<2.0) EU/dL Ur Leukocyte Esterase (NEGATIVE) Urine RBC (0-2/HPF) Urine WBC (0-5/HPF) Ur Epithelial Cells (NONE-FEW) Urine Bacteria (NEGATIVE) Ur Random Creatinine mg/dL Ur Random Microalbumin (<20) mg/L Ur Random Sodium (40.0-220.0) mmol/L HIV 1&2 Ag/Ab, 4th Gen (<1.0) 10/20/17 10/20/17 Range/Units 06:19 08:15 WBC 19.29 H (4.0-11.0) K/uL RBC 4.14 L (4.50-5.90) M/uL Hgb 11.8 L (13.0-17.0) g/dL Hct 34.7 L (38.0-50.0) % MCV 83.8 (80.0-98.0) fL MCH 28.5 (27.0-32.0) pg MCHC 34.0 (31.0-37.0) g/dL RDW Std Deviation 38.2 (28.0-62.0) fl RDW Coeff of Juan Alberto 13 (11.0-15.0) % Plt Count 277 (150-400) K/uL MPV 10.40 (7.40-12.00) fL Add Manual Diff YES Nucleated RBC % 0.0 /100WBC Nucleated RBCs # 0 K/uL ESR (0-14) mm/hr Sodium (136-148) mmol/L Potassium (3.5-5.1) mmol/L Chloride (98-107) mmol/L Carbon Dioxide (21.0-32.0) mmol/L BUN (7.0-18.0) mg/dL Creatinine (0.8-1.3) mg/dL Est Cr Clr Drug Dosing mL/min Estimated GFR (MDRD) ml/min Glucose (74-106) mg/dL POC Glucose 192 H (60-110) mg/dL Calcium (8.5-10.1) mg/dL Urine Color Urine Appearance Urine pH (5.0-8.0) Ur Specific [place] (1.001-1.035) Urine Protein (NEGATIVE) mg/dL Urine Glucose (UA) (NEGATIVE) mg/dL Urine Ketones (NEGATIVE) mg/dL Urine Occult Blood (NEGATIVE) Urine Nitrite (NEGATIVE) Urine Bilirubin (NEGATIVE) Urine Urobilinogen (<2.0) EU/dL Ur Leukocyte Esterase (NEGATIVE) Urine RBC (0-2/HPF) Urine WBC (0-5/HPF) Ur Epithelial Cells (NONE-FEW) Urine Bacteria (NEGATIVE) Ur Random Creatinine mg/dL Ur Random Microalbumin (<20) mg/L Ur Random Sodium (40.0-220.0) mmol/L HIV 1&2 Ag/Ab, 4th Gen (<1.0) Alejo Results Last 24 Hours: Microbiology 10/18/17 22:22 Aerobic Blood Culture - Preliminary Blood - Venous - Lab Draw NO GROWTH AFTER 1 DAY Anaerobic Blood Culture - Preliminary NO GROWTH AFTER 1 DAY 10/18/17 22:11 Aerobic Blood Culture - Preliminary Blood - Venous NO GROWTH AFTER 1 DAY Anaerobic Blood Culture - Preliminary NO GROWTH AFTER 1 DAY Med Orders - Current: Current Medications Acetaminophen (Tylenol) 650 mg PO Q6H PRN PRN Reason: Fever Last Admin: 10/18/17 21:36 Dose: 650 mg Diphenhydramine HCl (Benadryl) 25 mg PO Q6H PRN PRN Reason: Itching Last Admin: 10/18/17 01:02 Dose: 25 mg Lactated Ringer's (Ringers, Lactated) 1,000 mls @ 125 mls/hr IV ASDIRECTED [facility] Last Admin: 10/20/17 02:19 Dose: 125 mls/hr Daptomycin 900 mg/ Sodium (Chloride) 18 mls @ 540 mls/hr IV Q24H [facility] Last Admin: 10/19/17 18:08 Dose: 540 mls/hr Penicillin G Potassium 2.5 (millunits/ Dextrose/Water) 100 mls @ 200 mls/hr IV Q4H [facility] Last Admin: 10/20/17 08:52 Dose: 200 mls/hr Insulin Aspart (Novolog) 9 unit SUBCUT TIDAC [facility] Last Admin: 10/20/17 07:07 Dose: 9 units Insulin Glargine (Lantus Solostar) 20 units SUBCUT DAILY [facility] Last Admin: 10/20/17 08:55 Dose: 20 units Morphine Sulfate (Morphine) 2 - 4 mg IVPUSH Q2H PRN PRN Reason: Pain Last Admin: 10/20/17 08:39 Dose: 4 mg Ondansetron HCl (Zofran Odt) 4 mg PO Q4H PRN PRN Reason: Nausea/Vomiting Oxycodone HCl (Oxycodone) 5 - 10 mg PO Q3H PRN PRN Reason: Pain Last Admin: 10/20/17 05:53 Dose: 10 mg Discontinued Medications Bupivacaine HCl/Epinephrine Bitart (Marcaine 0.25%/Epinephrine 1:200,000) 10 ml INJECT ONETIME ONE Stop: 10/15/17 08:01 Last Admin: 10/15/17 15:14 Dose: Not Given Cefazolin Sodium (Ancef) Confirm Administered Dose 2 gm .ROUTE .STK-MED ONE Stop: 10/15/17 11:54 Fentanyl (Sublimaze) Confirm Administered Dose 250 mcg .ROUTE .STK-MED ONE Stop: 10/15/17 11:54 Fentanyl (Sublimaze) 50 mcg IVPUSH .Q5MIN PRN PRN Reason: Pain Cefazolin Sodium/Dextrose 2 gm (/ Premix) 50 mls @ 100 mls/hr IV ONETIME ONE Stop: 10/15/17 08:29 Last Admin: 10/15/17 15:14 Dose: Not Given Bupivacaine HCl/Epinephrine Bitart (Sensorc Mpf 0.25%-Epi 1:[id number]) Confirm Administered Dose 30 mls @ as directed .ROUTE .STK-MED ONE Stop: 10/15/17 07:25 Sodium Chloride (Normal Saline) Confirm Administered Dose 20 mls @ as directed .ROUTE .STK-MED ONE Stop: 10/15/17 11:54 Piperacillin Sod/Tazobactam (Sod 3.375 gm/ Sodium Chloride) 50 mls @ 100 mls/ hr IV Q6H [facility] Last Admin: 10/19/17 05:01 Dose: 100 mls/hr Clindamycin Phosphate 300 mg/ (Premix) 50 mls @ 100 mls/hr IV Q6H [facility] Last Admin: 10/18/17 15:08 Dose: 100 mls/hr Ibuprofen (Motrin) 800 mg PO Q6H PRN PRN Reason: Pain Last Admin: 10/17/17 00:55 Dose: 800 mg Insulin Aspart (Novolog) 7 unit SUBCUT TIDAC [facility] Last Admin: 10/17/17 06:57 Dose: 7 units Insulin Glargine (Lantus Solostar) 15 units SUBCUT DAILY [facility] Last Admin: 10/16/17 09:28 Dose: 15 units Insulin Glargine (Lantus Solostar) 17 units SUBCUT DAILY [facility] Last Admin: 10/17/17 08:34 Dose: 17 units Insulin Glargine (Lantus Solostar) 2 units SUBCUT ONETIME ONE Stop: 10/16/17 11:40 Last Admin: 10/16/17 12:35 Dose: 2 units Insulin Glargine (Lantus Solostar) 19 units SUBCUT DAILY [facility] Last Admin: 10/19/17 08:11 Dose: 19 units Ketorolac Tromethamine (Toradol) Confirm Administered Dose 30 mg .ROUTE .STK- MED ONE Stop: 10/15/17 11:54 Lidocaine (Xylocaine-Mpf 2%) Confirm Administered Dose 5 ml .ROUTE .STK-MED ONE Stop: 10/15/17 11:51 Midazolam HCl (Versed 1 Mg/Ml) Confirm Administered Dose 2 mg .ROUTE .STK-MED ONE Stop: 10/15/17 11:53 Morphine Sulfate (Morphine) 2 mg IVPUSH Q2H PRN PRN Reason: Pain Last Admin: 10/15/17 22:58 Dose: 2 mg Ondansetron HCl (Zofran) Confirm Administered Dose 4 mg .ROUTE .STK-MED ONE Stop: 10/15/17 11:54 Oxycodone HCl (Oxycodone) 5 mg PO Q3H PRN PRN Reason: Pain Last Admin: 10/15/17 23:43 Dose: 5 mg Propofol (Diprivan 20 Ml) Confirm Administered Dose 200 mg .ROUTE .STK-MED ONE Stop: 10/15/17 11:53 Propofol (Diprivan 20 Ml) Confirm Administered Dose 200 mg .ROUTE .STK-MED ONE Stop: 10/15/17 14:17 - Exam General: Alert, Oriented, Cooperative HEENT: EOMI Lungs: Normal Respiratory Effort Cardiovascular: Regular Rate, Regular Rhythm GI/Abdominal Exam: Soft, Other (denies diarrhea) Back Exam: Normal Inspection Extremities: Limited Range of Motion, Increased Warmth, Redness (still present without spead but continues around the incision and in the palm. ) Skin: Warm, Dry Wound/Incisions: No Drainage, Erythema (continues - minor improvement. ) Psy/Mental Status: Alert, Normal Affect - Problem List & Annotations (1) Tenosynovitis of finger and hand SNOMED Code(s): 745227679 Code(s): M65.9 - SYNOVITIS AND TENOSYNOVITIS, UNSPECIFIED Status: Acute Priority: High Current Visit: Yes (2) Frostbite SNOMED Code(s): 320476669 Code(s): T33.90XA - SUPERFICIAL FROSTBITE OF UNSPECIFIED SITES, INIT ENCNTR Status: Acute Priority: High Current Visit: No Qualifiers: Encounter type: sequela Qualified Code(s): T33.90XS - Superficial frostbite of unspecified sites, sequela - Problem List Review Problem List Initiated/Reviewed/Updated: Yes - My Orders Last 24 Hours: My Active Orders 10/20/17 07:47 Verify Patient Consent Obtain [RC] ASDIRECTED 10/20/17 08:15 CBC WITH AUTO DIFF [HEME] Routine 10/20/17 Breakfast Nothing Per Oral Diet [DIET] - Assessment Assessment:: POD 4 I and D for tenosynovitis. Improvements marginal still needing IV therapy and pain control. - Plan Plan:: 47 yo male with history of Uncontrolled NIDDM and non-adherence admitted for left hand abscess. Patient admitted to Plastic Surgery. Medicine consulted Flexor Tenosynovitis s/p I&D day #4 Afebrile, -WBC count: continues to increase, -ESR: continues to increase -previously on Bactrim PO outpatient initially, Vancomycin and zosyn IV outpatient, Zosyn and Clindamycin from surgery until Yesterday evening. Changed to daptomycin and zosyn yesterday and now will transition to penicillin given strep pansensitivites. - blood sugars with improved control via hospitalist team. - discussed repeat I and D given the persistent infectious process. also will evaluate for other areas of involvement. I and D request sent.
--- NOTE | 2017-10-20 09:33 | PCM.SN ---
- Free Text/Narrative Note: Continues to have redness and we will plan I and D today. All questions answered and informed consent obtained. Discussed with hospitalist team. No other visible sources of issues and hand is still red. Given the failure of IV antibiotics and the initial extensive I and D we will return for repeat washout and exploration to ensure no residuals of infection in the sheath or deep spaces.
--- NOTE | 2017-10-20 12:06 | PCM.PREANE ---
Preanesthetic Assessment - Anesthesia/Transfusion/Family Hx Anesthesia History: Prior Anesthesia Without Reaction Family History of Anesthesia Reaction: No Transfusion History: No Prior Transfusion(s) Intubation History: Unknown - Review of Systems General: No Symptoms Pulmonary: No Symptoms Cardiovascular: No Symptoms Gastrointestinal: No Symptoms Neurological: No Symptoms Other: Reports: None - Physical Assessment NPO Status Date: 10/20/17 NPO Status Time: 07:00 O2 Sat by Pulse Oximetry: 95 Respiratory Rate: 16 Vital Signs: Last Vital Signs Temp 36.7 C 10/20/17 07:41 Pulse 104 H 10/20/17 07:41 Resp 16 10/20/17 07:41 BP 139/88 10/20/17 07:41 Pulse Ox 95 10/20/17 07:41 Height: 1.78 m Weight: 94.347 kg ASA Class: 2 Mental Status: Alert & Oriented x3 Airway Class: Mallampati = 1 Dentition: Reports: Normal Dentition ROM/Head Extension: Full Lungs: Clear to Auscultation, Normal Respiratory Effort Cardiovascular: Regular Rate, Regular Rhythm - Lab Values: Laboratory Last Values WBC 19.29 K/uL (4.0-11.0) H 10/20/17 08:15 RBC 4.14 M/uL (4.50-5.90) L 10/20/17 08:15 Hgb 11.8 g/dL (13.0-17.0) L 10/20/17 08:15 Hct 34.7 % (38.0-50.0) L 10/20/17 08:15 MCV 83.8 fL (80.0-98.0) 10/20/17 08:15 MCH 28.5 pg (27.0-32.0) 10/20/17 08:15 MCHC 34.0 g/dL (31.0-37.0) 10/20/17 08:15 RDW Std Deviation 38.2 fl (28.0-62.0) 10/20/17 08:15 RDW Coeff of Juan Alberto 13 % (11.0-15.0) 10/20/17 08:15 Plt Count 277 K/uL (150-400) 10/20/17 08:15 MPV 10.40 fL (7.40-12.00) 10/20/17 08:15 Neut % (Auto) 73.5 % (48.0-80.0) 10/16/17 08:08 Lymph % (Auto) 17.6 % (16.0-40.0) 10/16/17 08:08 [place]cock % (Auto) 7.4 % (0.0-15.0) 10/16/17 08:08 Eos % (Auto) 1.3 % (0.0-7.0) 10/16/17 08:08 Baso % (Auto) 0.2 % (0.0-1.5) 10/16/17 08:08 Neut # (Auto) 10.7 K/uL (1.4-5.7) H 10/16/17 08:08 Lymph # (Auto) 2.6 K/uL (0.6-2.4) H 10/16/17 08:08 Hitchcock # (Auto) 1.1 K/uL (0.0-0.8) H 10/16/17 08:08 Eos # (Auto) 0.2 K/uL (0.0-0.7) 10/16/17 08:08 Baso # (Auto) 0.0 K/uL (0.0-0.1) 10/16/17 08:08 Add Manual Diff YES 10/20/17 08:15 Neutrophils % (Manual) 77 % (48.0-80.0) 10/20/17 08:15 Band Neutrophils % 7 % 10/19/17 08:08 Lymphocytes % (Manual) 18 % (16.0-40.0) 10/20/17 08:15 Monocytes % (Manual) 4 % (0.0-15.0) 10/20/17 08:15 Eosinophils % (Manual) 1 % (0.0-7.0) 10/20/17 08:15 Nucleated RBC % 0.0 /100WBC 10/20/17 08:15 Absolute Seg Neuts 14.9 (1.4-5.7) H 10/20/17 08:15 Band Neutrophils # 1.3 10/19/17 08:08 Lymphocytes # (Manual) 3.5 (0.6-2.4) H 10/20/17 08:15 Monocytes # (Manual) 0.8 (0.0-0.8) 10/20/17 08:15 Eosinophils # (Manual) 0.2 (0.0-0.7) 10/20/17 08:15 Nucleated RBCs # 0 K/uL 10/20/17 08:15 ESR 96 mm/hr (0-14) H 10/20/17 05:20 ABG pH 7.401 (7.35-7.45) 10/15/17 14:30 ABG pCO2 43 mmHG (35-45) 10/15/17 14:30 ABG pO2 91 mmHG (75-100) 10/15/17 14:30 ABG HCO3 26 mEq/L (22-26) 10/15/17 14:30 ABG Total CO2 24.0 10/15/17 14:30 ABG Base Excess 1.4 (-2.0-2.0) 10/15/17 14:30 Lactate 0.9 mmol/L (0.20-2.00) 10/15/17 14:30 Sodium 130 mmol/L (136-148) L 10/20/17 05:20 Potassium 4.0 mmol/L (3.5-5.1) 10/20/17 05:20 Chloride 98 mmol/L (98-107) 10/20/17 05:20 Carbon Dioxide 28.0 mmol/L (21.0-32.0) 10/20/17 05:20 BUN 20 mg/dL (7.0-18.0) H 10/20/17 05:20 Creatinine 1.6 mg/dL (0.8-1.3) H 10/20/17 05:20 Est Cr Clr Drug Dosing 58.93 mL/min 10/20/17 05:20 Estimated GFR (MDRD) 46.6 ml/min 10/20/17 05:20 Glucose 180 mg/dL (74-106) H 10/20/17 05:20 POC Glucose 192 mg/dL (60-110) H 10/20/17 06:19 Hemoglobin A1c 12.5 % (4.5-6.2) H 10/15/17 13:33 Calcium 8.7 mg/dL (8.5-10.1) 10/20/17 05:20 Magnesium 1.9 mg/dL (1.5-2.0) 10/15/17 13:33 Total Bilirubin 0.4 mg/dL (0.2-1.0) 10/19/17 08:08 AST 24 IU/L (15-37) 10/19/17 08:08 ALT 18 IU/L (14-63) 10/19/17 08:08 Alkaline Phosphatase 104 U/L (46-116) 10/19/17 08:08 Total Protein 6.2 g/dL (6.4-8.2) L 10/19/17 08:08 Albumin 1.7 g/dL (3.4-5.0) L 10/19/17 08:08 Globulin 4.5 g/dL (2.0-3.5) H 10/19/17 08:08 Albumin/Globulin Ratio 0.4 (1.3-2.8) L 10/19/17 08:08 Urine Color YELLOW 10/19/17 14:10 Urine Appearance SLT CLOUDY 10/19/17 14:10 Urine pH 6.5 (5.0-8.0) 10/19/17 14:10 Ur Specific [place] 1.020 (1.001-1.035) 10/19/17 14:10 Urine Protein 100 mg/dL (NEGATIVE) 10/19/17 14:10 Urine Glucose (UA) 100 mg/dL (NEGATIVE) H 10/19/17 14:10 Urine Ketones NEGATIVE mg/dL (NEGATIVE) 10/19/17 14:10 Urine Occult Blood MODERATE (NEGATIVE) 10/19/17 14:10 Urine Nitrite NEGATIVE (NEGATIVE) 10/19/17 14:10 Urine Bilirubin NEGATIVE (NEGATIVE) 10/19/17 14:10 Urine Urobilinogen 1.0 EU/dL (<2.0) 10/19/17 14:10 Ur Leukocyte Esterase NEGATIVE (NEGATIVE) 10/19/17 14:10 Urine RBC 5-7 (0-2/HPF) 10/19/17 14:10 Urine WBC 0-1 (0-5/HPF) 10/19/17 14:10 Ur Epithelial Cells RARE (NONE-FEW) 10/19/17 14:10 Urine Bacteria RARE (NEGATIVE) 10/19/17 14:10 Ur Random Creatinine <13.0 mg/dL 10/19/17 14:10 Ur Random Microalbumin 100 mg/L (<20) 10/19/17 14:10 Ur Random Sodium 113.0 mmol/L (40.0-220.0) 10/19/17 14:10 Ketones NEGATIVE (NEG) 10/15/17 13:33 HIV 1&2 Ag/Ab, 4th Gen 0.2 (<1.0) 10/19/17 08:08 - Allergies Allergies/Adverse Reactions: Allergies Allergy/AdvReac Type Severity Reaction Status Date / Time No Known Allergies Allergy Verified 10/15/17 14:31 - Blood Blood Available: No Product(s) Available: None - Acknowledgements Anesthesia Type Planned: General Anesthesia (Shiva not be appropriately NPO untill 1530 today), MAC Pt an Appropriate Candidate for the Planned Anesthesia: Yes Alternatives and Risks of Anesthesia Discussed w Pt/Guardian: Yes Pt/Guardian Understands and Agrees with Anesthesia Plan: Yes PreAnesthesia Questionnaire HEENT History: Reports: None Cardiovascular History: Reports: High Cholesterol, Hypertension Other Cardiovascular History: hypertension in the past, not on medication Respiratory History: Gastrointestinal History: Reports: Other (See Below) Other Gastrointestinal History: occasional heartburn - denies any today Genitourinary History: Reports: None Musculoskeletal History: Reports: Arthritis Neurological History: Psychiatric History: Endocrine/Metabolic History: Reports: Diabetes, Type II (does not see a family doctor and does not check BG or take meds - has been >300 on both visits for surgery), Other (See Below) Other Endocrine/Metabolic History: borderline diabetic Hematologic History: Immunologic History: Oncologic (Cancer) History: Dermatologic History: Reports: Other (See Below) Other Dermatologic History: presently has infection left hand after ampuation d/ t frostbite - Infectious Disease History Infectious Disease History: Reports: None - Past Surgical History Head Surgeries/Procedures: Reports: None Male Surgical History: Reports: None Musculoskeletal Surgical History: Reports: Other (See Below) Other Musculoskeletal Surgeries/Procedures:: 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 - SUBSTANCE USE Smoking Status *Q: Former Smoker Recreational Drug Use History: No - HOME MEDS Home Medications: Home Meds Antibiotic 1 tab PO BID 10/14/17 [History] oxyCODONE 5 mg PO ASDIRECTED PRN 10/14/17 [History] Clindamycin HCl 300 mg PO Q6H #40 capsule 10/15/17 [Rx] Insulin Aspart [NovoLOG] 10 unit SUBCUT TIDAC 30 Days pen 10/18/17 [Rx] Insulin Glarg,Human.Rec.Analog [Lantus Solostar] 20 units SUBCUT DAILY 30 Days pen 10/18/17 [Rx] metFORMIN [Glucophage XR] 500 mg PO BIDMEALS #60 tab.er 10/18/17 [Rx] - CURRENT (IN HOUSE) MEDS Current Meds: Current Medications Acetaminophen (Tylenol) 650 mg PO Q6H PRN PRN Reason: Fever Last Admin: 10/18/17 21:36 Dose: 650 mg Diphenhydramine HCl (Benadryl) 25 mg PO Q6H PRN PRN Reason: Itching Last Admin: 10/18/17 01:02 Dose: 25 mg Lactated Ringer's (Ringers, Lactated) 1,000 mls @ 125 mls/hr IV ASDIRECTED [facility] Last Admin: 10/20/17 11:37 Dose: 125 mls/hr Daptomycin 900 mg/ Sodium (Chloride) 18 mls @ 540 mls/hr IV Q24H [facility] Last Admin: 10/19/17 18:08 Dose: 540 mls/hr Penicillin G Potassium 2.5 (millunits/ Dextrose/Water) 100 mls @ 200 mls/hr IV Q4H [facility] Last Admin: 10/20/17 11:37 Dose: 200 mls/hr Insulin Aspart (Novolog) 9 unit SUBCUT TIDAC [facility] Last Admin: 10/20/17 07:07 Dose: 9 units Insulin Glargine (Lantus Solostar) 20 units SUBCUT DAILY [facility] Last Admin: 10/20/17 08:55 Dose: 20 units Morphine Sulfate (Morphine) 2 - 4 mg IVPUSH Q2H PRN PRN Reason: Pain Last Admin: 10/20/17 11:37 Dose: 4 mg Ondansetron HCl (Zofran Odt) 4 mg PO Q4H PRN PRN Reason: Nausea/Vomiting Oxycodone HCl (Oxycodone) 5 - 10 mg PO Q3H PRN PRN Reason: Pain Last Admin: 10/20/17 05:53 Dose: 10 mg Discontinued Medications Bupivacaine HCl/Epinephrine Bitart (Marcaine 0.25%/Epinephrine 1:200,000) 10 ml INJECT ONETIME ONE Stop: 10/15/17 08:01 Last Admin: 10/15/17 15:14 Dose: Not Given Cefazolin Sodium (Ancef) Confirm Administered Dose 2 gm .ROUTE .STK-MED ONE Stop: 10/15/17 11:54 Fentanyl (Sublimaze) Confirm Administered Dose 250 mcg .ROUTE .STK-MED ONE Stop: 10/15/17 11:54 Fentanyl (Sublimaze) 50 mcg IVPUSH .Q5MIN PRN PRN Reason: Pain Cefazolin Sodium/Dextrose 2 gm (/ Premix) 50 mls @ 100 mls/hr IV ONETIME ONE Stop: 10/15/17 08:29 Last Admin: 10/15/17 15:14 Dose: Not Given Bupivacaine HCl/Epinephrine Bitart (Sensorc Mpf 0.25%-Epi 1:[id number]) Confirm Administered Dose 30 mls @ as directed .ROUTE .STK-MED ONE Stop: 10/15/17 07:25 Sodium Chloride (Normal Saline) Confirm Administered Dose 20 mls @ as directed .ROUTE .STK-MED ONE Stop: 10/15/17 11:54 Piperacillin Sod/Tazobactam (Sod 3.375 gm/ Sodium Chloride) 50 mls @ 100 mls/ hr IV Q6H [facility] Last Admin: 10/19/17 05:01 Dose: 100 mls/hr Clindamycin Phosphate 300 mg/ (Premix) 50 mls @ 100 mls/hr IV Q6H [facility] Last Admin: 10/18/17 15:08 Dose: 100 mls/hr Ibuprofen (Motrin) 800 mg PO Q6H PRN PRN Reason: Pain Last Admin: 10/17/17 00:55 Dose: 800 mg Insulin Aspart (Novolog) 7 unit SUBCUT TIDAC [facility] Last Admin: 10/17/17 06:57 Dose: 7 units Insulin Glargine (Lantus Solostar) 15 units SUBCUT DAILY [facility] Last Admin: 10/16/17 09:28 Dose: 15 units Insulin Glargine (Lantus Solostar) 17 units SUBCUT DAILY [facility] Last Admin: 10/17/17 08:34 Dose: 17 units Insulin Glargine (Lantus Solostar) 2 units SUBCUT ONETIME ONE Stop: 10/16/17 11:40 Last Admin: 10/16/17 12:35 Dose: 2 units Insulin Glargine (Lantus Solostar) 19 units SUBCUT DAILY [facility] Last Admin: 10/19/17 08:11 Dose: 19 units Ketorolac Tromethamine (Toradol) Confirm Administered Dose 30 mg .ROUTE .STK- MED ONE Stop: 10/15/17 11:54 Lidocaine (Xylocaine-Mpf 2%) Confirm Administered Dose 5 ml .ROUTE .STK-MED ONE Stop: 10/15/17 11:51 Midazolam HCl (Versed 1 Mg/Ml) Confirm Administered Dose 2 mg .ROUTE .STK-MED ONE Stop: 10/15/17 11:53 Morphine Sulfate (Morphine) 2 mg IVPUSH Q2H PRN PRN Reason: Pain Last Admin: 10/15/17 22:58 Dose: 2 mg Ondansetron HCl (Zofran) Confirm Administered Dose 4 mg .ROUTE .STK-MED ONE Stop: 10/15/17 11:54 Oxycodone HCl (Oxycodone) 5 mg PO Q3H PRN PRN Reason: Pain Last Admin: 10/15/17 23:43 Dose: 5 mg Propofol (Diprivan 20 Ml) Confirm Administered Dose 200 mg .ROUTE .STK-MED ONE Stop: 10/15/17 11:53 Propofol (Diprivan 20 Ml) Confirm Administered Dose 200 mg .ROUTE .STK-MED ONE Stop: 10/15/17 14:17
[2017-10-20] MEDS ORDERED: Ondansetron 4 MG/2 ML SDV ONE (15:18)
[2017-10-20] MEDS ORDERED: fentaNYL 250 MCG/5 ML SDV ONE (15:19)
[2017-10-20] MEDS ORDERED: Midazolam 1 MG/ML 2 ML SDV ONE (15:19)
[2017-10-20] MEDS ORDERED: Propofol 200 MG/20 ML SDV ONE ×3 (15:19→16:59)
[2017-10-20] MEDS ORDERED: Lidocaine 2% 5 ML SDV ONE (15:19)
[2017-10-20] MEDS ORDERED: Bupivacaine 25%/EPINEPHrine/PF 30 ML ONE (15:54)
[2017-10-20] MEDS ORDERED: HYDROmorphone 2 MG/ML SDV ONE (16:44)
--- NOTE | 2017-10-20 18:00 | PCM.OPNOTE ---
- General Post-Op/Procedure Note Date of Surgery/Procedure: 10/20/17 Operative Procedure(s): repeat incision and drainage left hand tenosynovitis - infection Pre Op Diagnosis: persistent infection left hand Post-Op Diagnosis: Same Anesthesia Technique: Local, MAC Primary Surgeon: Maria Isabel Red Pathology: repeat cultures taken of small amount of fluid and bone biopsy of the middle phalanx. No esther purulence and no signs of spread. Bone trimmed distally for closure with debridement of compromised skin. Drain/Tube Comments:: pediatric catheter placed in the wound bed with small holes for irrigation. Complications: None Condition: Fair Free Text/Narrative:: Intake & Output 10/20/17 10/20/17 10/20/17 07:59 15:59 23:59 Intake Total 2279 100 Output Total 1400 Balance 879 100
--- NOTE | 2017-10-20 18:07 | PCM.POSTAN ---
POST ANESTHESIA ASSESSMENT - MENTAL STATUS Mental Status: Alert, Oriented - RESPIRATORY Respiratory Status: Respiratory Rate WNL, Airway Patent, O2 Saturation Stable - CARDIOVASCULAR CV Status: Pulse Rate WNL, Blood Pressure Stable - GASTROINTESTINAL GI Status: No Symptoms - POST OP HYDRATION Hydration Status: Adequate & Stable
[2017-10-20] MEDS: SODIUM CHLORIDE 0.9% IV SCH (19:31)
[2017-10-20] MEDS: DAPTOMYCIN IV SCH (19:31)
[2017-10-20] MEDS: Sodium Chloride 0.9% 1,000 ML IV SCH (20:49)
[2017-10-20] MEDS: HYDROmorphone 1 MG/ML Syringe IVPUSH PRN (21:54)
[2017-10-21] MEDS: Penicillin G Potassium 2.5 MILLUNITS in Dextrose 5% in Water 100 ML IV SCH ×12 (03:46→23:58)
[2017-10-21] MEDS: oxyCODONE 5 MG Tab PO PRN ×5 (04:03→19:56)
--- NOTE | 2017-10-21 07:51 | PCM48HPAN ---
Post Anesthesia Note - EVALUATION WITHIN 48HRS OF ANESTHETIC Vital Signs in Normal Range: Yes Patient Participated in Evaluation: Yes Respiratory Function Stable: Yes Airway Patent: Yes Cardiovascular Function Stable: Yes Hydration Status Stable: Yes Pain Control Satisfactory: Yes Nausea and Vomiting Control Satisfactory: Yes Mental Status Recovered: Yes Resp Rate: 20
[2017-10-21] MEDS: Insulin Aspart 100 Units/ML 3 ML Pen SUBCUT SCH ×3 (07:58→16:38)
[2017-10-21] MEDS: Sodium Chloride 0.9% 1,000 ML IV SCH ×2 (08:18→18:06)
[2017-10-21] MEDS: Insulin Glargine,Human Rec. Analog 100 Units/ML 3 ML Pen SUBCUT SCH (08:22)
[2017-10-21] MEDS ORDERED: Meropenem 1 GM in Sodium Chloride 0.9% 100 ML IV SCH (09:00)
--- NOTE | 2017-10-21 09:15 | PCM.PN ---
- General Info Date of Service: 10/21/17 Admission Dx/Problem (Free Text): Admission Diagnosis/Problem Admission Diagnosis/Problem Tenosynovitis of finger, hand, or wrist Subjective Update: Feeling better today with less throbbing. Pain medication working well. Discussed case with Dr Mendez with Infectious Disease at [facility] and she agrees with the antibiotics coverage at this time. Discussed meropenem and she agrees with pharmacy. Will start this for possinble gram negative and expanded anaerobes. White count may continue to trail though clinical improvement given his diabetic status. Clinically not affected given vitals and stability. Again reviewed any other sources with the patient and no other complaints aside form a left foot injury about a year ago that has not healed well. Discussed xrays and will obtain today. Functional Status: Reports: Pain Controlled, Tolerating Diet, Ambulating - Review of Systems General: Reports: No Symptoms. Denies: Fever, Chills HEENT: Reports: No Symptoms Cardiovascular: Reports: No Symptoms Gastrointestinal: Reports: No Symptoms. Denies: Abdominal Pain, Diarrhea, Nausea Genitourinary: Reports: No Symptoms. Denies: Burning, Urgency Musculoskeletal: Reports: Hand Pain (but improved) Skin: Reports: Other (redness continues but more focal today. ) Neurological: Reports: Numbness (left hand with some numbness in the median nerve distribution. Complete release confirmed yesterday with nerve intact. ) Psychiatric: Reports: No Symptoms - Patient Data Vitals - Most Recent: Last Vital Signs Temp 97.9 F 10/21/17 08:14 Pulse 109 H 10/21/17 08:14 Resp 18 10/21/17 08:14 BP 136/78 10/21/17 08:14 Pulse Ox 96 10/21/17 08:14 Weight - Most Recent: 209 lb 7.026 oz I&O - Last 24 Hours: Intake & Output 10/20/17 10/21/17 10/21/17 23:59 07:59 15:59 Intake Total 1989 4011 Output Total 1191 600 Balance 795 891 Lab Results Last 24 Hours: Laboratory Results - last 24 hr 10/20/17 10/20/17 10/21/17 Range/Units 08:15 12:06 05:35 WBC (4.0-11.0) K/uL RBC (4.50-5.90) M/uL Hgb (13.0-17.0) g/dL Hct (38.0-50.0) % MCV (80.0-98.0) fL MCH (27.0-32.0) pg MCHC (31.0-37.0) g/dL RDW Std Deviation (28.0-62.0) fl RDW Coeff of Juan Alberto (11.0-15.0) % Plt Count (150-400) K/uL MPV (7.40-12.00) fL Add Manual Diff Neutrophils % (Manual) 77 (48.0-80.0) % Band Neutrophils % % Lymphocytes % (Manual) 18 (16.0-40.0) % Monocytes % (Manual) 4 (0.0-15.0) % Eosinophils % (Manual) 1 (0.0-7.0) % Nucleated RBC % /100WBC Absolute Seg Neuts 14.9 H (1.4-5.7) Band Neutrophils # Lymphocytes # (Manual) 3.5 H (0.6-2.4) Monocytes # (Manual) 0.8 (0.0-0.8) Eosinophils # (Manual) 0.2 (0.0-0.7) Nucleated RBCs # K/uL ESR (0-14) mm/hr Sodium 129 L (136-148) mmol/L Potassium 4.0 (3.5-5.1) mmol/L Chloride 97 L (98-107) mmol/L Carbon Dioxide 25.7 (21.0-32.0) mmol/L BUN 20 H (7.0-18.0) mg/dL Creatinine 1.6 H (0.8-1.3) mg/dL Est Cr Clr Drug Dosing 58.93 mL/min Estimated GFR (MDRD) 46.6 ml/min Glucose 156 H (74-106) mg/dL POC Glucose 203 H (60-110) mg/dL Calcium 8.4 L (8.5-10.1) mg/dL 10/21/1718 10/21/17 Range/Units 05:35 05:35 06:10 WBC 20.56 H (4.0-11.0) K/uL RBC 3.94 L (4.50-5.90) M/uL Hgb 11.2 L (13.0-17.0) g/dL Hct 33.3 L (38.0-50.0) % MCV 84.5 (80.0-98.0) fL MCH 28.4 (27.0-32.0) pg MCHC 33.6 (31.0-37.0) g/dL RDW Std Deviation 38.6 (28.0-62.0) fl RDW Coeff of Juan Alberto 13 (11.0-15.0) % Plt Count 282 (150-400) K/uL MPV 10.10 (7.40-12.00) fL Add Manual Diff YES Neutrophils % (Manual) 85 H (48.0-80.0) % Band Neutrophils % 1 % Lymphocytes % (Manual) 10 L (16.0-40.0) % Monocytes % (Manual) 3 (0.0-15.0) % Eosinophils % (Manual) 1 (0.0-7.0) % Nucleated RBC % 0.0 /100WBC Absolute Seg Neuts 17.5 H (1.4-5.7) Band Neutrophils # 0.2 Lymphocytes # (Manual) 2.1 (0.6-2.4) Monocytes # (Manual) 0.6 (0.0-0.8) Eosinophils # (Manual) 0.2 (0.0-0.7) Nucleated RBCs # 0 K/uL ESR 100 H (0-14) mm/hr Sodium (136-148) mmol/L Potassium (3.5-5.1) mmol/L Chloride (98-107) mmol/L Carbon Dioxide (21.0-32.0) mmol/L BUN (7.0-18.0) mg/dL Creatinine (0.8-1.3) mg/dL Est Cr Clr Drug Dosing mL/min Estimated GFR (MDRD) ml/min Glucose (74-106) mg/dL POC Glucose 159 H (60-110) mg/dL Calcium (8.5-10.1) mg/dL Alejo Results Last 24 Hours: Microbiology 10/18/17 22:22 Aerobic Blood Culture - Preliminary Blood - Venous - Lab Draw NO GROWTH AFTER 2 DAYS Anaerobic Blood Culture - Preliminary NO GROWTH AFTER 2 DAYS 10/18/17 22:11 Aerobic Blood Culture - Preliminary Blood - Venous NO GROWTH AFTER 2 DAYS Anaerobic Blood Culture - Preliminary NO GROWTH AFTER 2 DAYS 10/20/17 16:44 Gram Stain - Preliminary Hand, Left 10/20/17 17:00 Gram Stain - Preliminary Bone / Bone Biopsy - Hand, Left Med Orders - Current: Current Medications Acetaminophen (Tylenol) 650 mg PO Q6H PRN PRN Reason: Fever Last Admin: 10/18/17 21:36 Dose: 650 mg Diphenhydramine HCl (Benadryl) 25 mg PO Q6H PRN PRN Reason: Itching Last Admin: 10/18/17 01:02 Dose: 25 mg Hydromorphone HCl (Dilaudid) 1 mg IVPUSH Q2H PRN PRN Reason: Pain (moderate 4-6) Last Admin: 10/20/17 21:54 Dose: 1 mg Daptomycin 900 mg/ Sodium (Chloride) 18 mls @ 540 mls/hr IV Q24H [facility] Last Admin: 10/20/17 19:31 Dose: 540 mls/hr Penicillin G Potassium 2.5 (millunits/ Dextrose/Water) 100 mls @ 200 mls/hr IV Q4H [facility] Last Admin: 10/21/17 08:18 Dose: 200 mls/hr Sodium Chloride (Normal Saline) 1,000 mls @ 100 mls/hr IV ASDIRECTED [facility] Last Admin: 10/21/17 08:18 Dose: 100 mls/hr Meropenem 1 gm/ Sodium (Chloride) 100 mls @ 100 mls/hr IV Q8H [facility] Insulin Aspart (Novolog) 9 unit SUBCUT TIDAC [facility] Last Admin: 10/21/17 07:58 Dose: 9 units Insulin Glargine (Lantus Solostar) 20 units SUBCUT DAILY [facility] Last Admin: 10/21/17 08:22 Dose: 20 units Ondansetron HCl (Zofran Odt) 4 mg PO Q4H PRN PRN Reason: Nausea/Vomiting Oxycodone HCl (Oxycodone) 5 - 10 mg PO Q3H PRN PRN Reason: Pain Last Admin: 10/21/17 08:15 Dose: 10 mg Discontinued Medications Bupivacaine HCl/Epinephrine Bitart (Marcaine 0.25%/Epinephrine 1:200,000) 10 ml INJECT ONETIME ONE Stop: 10/15/17 08:01 Last Admin: 10/15/17 15:14 Dose: Not Given Cefazolin Sodium (Ancef) Confirm Administered Dose 2 gm .ROUTE .STK-MED ONE Stop: 10/15/17 11:54 Fentanyl (Sublimaze) Confirm Administered Dose 250 mcg .ROUTE .STK-MED ONE Stop: 10/15/17 11:54 Fentanyl (Sublimaze) 50 mcg IVPUSH .Q5MIN PRN PRN Reason: Pain Fentanyl (Sublimaze) Confirm Administered Dose 250 mcg .ROUTE .STK-MED ONE Stop: 10/20/17 15:20 Hydromorphone HCl (Dilaudid) Confirm Administered Dose 2 mg .ROUTE .STK-MED ONE Stop: 10/20/17 16:45 Cefazolin Sodium/Dextrose 2 gm (/ Premix) 50 mls @ 100 mls/hr IV ONETIME ONE Stop: 10/15/17 08:29 Last Admin: 10/15/17 15:14 Dose: Not Given Lactated Ringer's (Ringers, Lactated) 1,000 mls @ 125 mls/hr IV ASDIRECTED [facility] Last Admin: 10/20/17 11:37 Dose: 125 mls/hr Bupivacaine HCl/Epinephrine Bitart (Sensorc Mpf 0.25%-Epi [id number]) Confirm Administered Dose 30 mls @ as directed .ROUTE .STK-MED ONE Stop: 10/15/17 07:25 Sodium Chloride (Normal Saline) Confirm Administered Dose 20 mls @ as directed .ROUTE .STK-MED ONE Stop: 10/15/17 11:54 Piperacillin Sod/Tazobactam (Sod 3.375 gm/ Sodium Chloride) 50 mls @ 100 mls/ hr IV Q6H [facility] Last Admin: 10/19/17 05:01 Dose: 100 mls/hr Clindamycin Phosphate 300 mg/ (Premix) 50 mls @ 100 mls/hr IV Q6H [facility] Last Admin: 10/18/17 15:08 Dose: 100 mls/hr Bupivacaine HCl/Epinephrine Bitart (Sensorc Mpf 0.25%-Epi 1:[id number]) Confirm Administered Dose 30 mls @ as directed .ROUTE .STK-MED ONE Stop: 10/20/17 15:55 Ibuprofen (Motrin) 800 mg PO Q6H PRN PRN Reason: Pain Last Admin: 10/17/17 00:55 Dose: 800 mg Insulin Aspart (Novolog) 7 unit SUBCUT TIDAC [facility] Last Admin: 10/17/17 06:57 Dose: 7 units Insulin Glargine (Lantus Solostar) 15 units SUBCUT DAILY [facility] Last Admin: 10/16/17 09:28 Dose: 15 units Insulin Glargine (Lantus Solostar) 17 units SUBCUT DAILY [facility] Last Admin: 10/17/17 08:34 Dose: 17 units Insulin Glargine (Lantus Solostar) 2 units SUBCUT ONETIME ONE Stop: 10/16/17 11:40 Last Admin: 10/16/17 12:35 Dose: 2 units Insulin Glargine (Lantus Solostar) 19 units SUBCUT DAILY [facility] Last Admin: 10/19/17 08:11 Dose: 19 units Ketorolac Tromethamine (Toradol) Confirm Administered Dose 30 mg .ROUTE .STK- MED ONE Stop: 10/15/17 11:54 Lidocaine (Xylocaine-Mpf 2%) Confirm Administered Dose 5 ml .ROUTE .STK-MED ONE Stop: 10/15/17 11:51 Lidocaine (Xylocaine-Mpf 2%) Confirm Administered Dose 5 ml .ROUTE .STK-MED ONE Stop: 10/20/17 15:20 Midazolam HCl (Versed 1 Mg/Ml) Confirm Administered Dose 2 mg .ROUTE .STK-MED ONE Stop: 10/15/17 11:53 Midazolam HCl (Versed 1 Mg/Ml) Confirm Administered Dose 2 mg .ROUTE .STK-MED ONE Stop: 10/20/17 15:20 Morphine Sulfate (Morphine) 2 mg IVPUSH Q2H PRN PRN Reason: Pain Last Admin: 10/15/17 22:58 Dose: 2 mg Morphine Sulfate (Morphine) 2 - 4 mg IVPUSH Q2H PRN PRN Reason: Pain Last Admin: 10/20/17 19:31 Dose: 4 mg Ondansetron HCl (Zofran) Confirm Administered Dose 4 mg .ROUTE .STK-MED ONE Stop: 10/15/17 11:54 Ondansetron HCl (Zofran) Confirm Administered Dose 4 mg .ROUTE .STK-MED ONE Stop: 10/20/17 15:19 Oxycodone HCl (Oxycodone) 5 mg PO Q3H PRN PRN Reason: Pain Last Admin: 10/15/17 23:43 Dose: 5 mg Propofol (Diprivan 20 Ml) Confirm Administered Dose 200 mg .ROUTE .STK-MED ONE Stop: 10/15/17 11:53 Propofol (Diprivan 20 Ml) Confirm Administered Dose 200 mg .ROUTE .STK-MED ONE Stop: 10/15/17 14:17 Propofol (Diprivan 20 Ml) Confirm Administered Dose 200 mg .ROUTE .STK-MED ONE Stop: 10/20/17 15:20 Propofol (Diprivan 20 Ml) Confirm Administered Dose 200 mg .ROUTE .STK-MED ONE Stop: 10/20/17 16:35 Propofol (Diprivan 20 Ml) Confirm Administered Dose 200 mg .ROUTE .STK-MED ONE Stop: 10/20/17 17:00 - Exam General: Alert, Oriented, Cooperative HEENT: Pupils Equal, Pupils Reactive Lungs: Normal Respiratory Effort Extremities: Limited Range of Motion (but improvements in the swelling - marginal. Redness is more focal. Drainage is serous and flushed with 30cc saline. ) Skin: Warm, Other (redness present but slight improvements. ) Wound/Incisions: Drainage (serosanguinous without signs of purulence. ) Neurological: No New Focal Deficit Psy/Mental Status: Alert, Normal Affect, Normal Mood - Problem List & Annotations (1) Tenosynovitis of finger and hand SNOMED Code(s): 096398654 Code(s): M65.9 - SYNOVITIS AND TENOSYNOVITIS, UNSPECIFIED Status: Acute Priority: High Current Visit: Yes (2) Frostbite SNOMED Code(s): 041798025 Code(s): T33.90XA - SUPERFICIAL FROSTBITE OF UNSPECIFIED SITES, INIT ENCNTR Status: Acute Priority: High Current Visit: No Qualifiers: Encounter type: sequela Qualified Code(s): T33.90XS - Superficial frostbite of unspecified sites, sequela - Problem List Review Problem List Initiated/Reviewed/Updated: Yes - My Orders Last 24 Hours: My Active Orders 10/20/17 16:44 CULTURE ANAEROBIC [RM] Routine CULTURE WOUND [RM] Routine GRAM STAIN [RM] Routine 10/20/17 17:00 CULTURE WOUND [RM] Routine GRAM STAIN [RM] Routine 10/20/17 18:00 Sodium Chloride 0.9% [Normal Saline] 1,000 ml IV ASDIRECTED 10/20/17 21:00 Wound Care [RC] Q8HR 10/20/17 21:07 HYDROmorphone [Dilaudid] 1 mg IVPUSH Q2H PRN 10/20/17 Dinner ADA Diabetic [[place] [employer] Diet] [DIET] 10/21/17 08:50 Sequential Compression Device [OM.PC] Routine 10/21/17 08:52 Foot Comp Min 3V Lt [CR] Routine 10/21/17 09:00 Meropenem [Merrem] 1 gm Sodium Chloride 0.9% [Normal Saline] 100 ml IV Q8H - Assessment Assessment:: POD 1/5 I and D for tenosynovitis. Improvements marginal still needing IV therapy and pain control. - Plan Plan:: 47 yo male with history of Uncontrolled NIDDM and non-adherence admitted for left hand tenosynovitis. Flexor Tenosynovitis s/p I&D day #1/5 Afebrile. WBC count: continues to increase but marginal - Previously on Bactrim PO outpatient initially, Vancomycin and zosyn IV outpatient, Zosyn and Clindamycin from surgery until Yesterday evening. Changed to daptomycin and zosyn yesterday and now will transition to penicillin given strep pansensitivites. Discussed with ID in [place] - Dr Mnedez. Add meropenem for Penicillin, Dapto and Merepenem full spectrum coverage. - Blood sugars with improved control via hospitalist team. - Irrigation continues. Recheck later today. Discussed case with radiology and Dr Shane as well for additional options. - Xray of left foot given deformity but unlikely the source of any additional concerns. - Recheck am labs.
[2017-10-21] MEDS: Meropenem 1 GM in Sodium Chloride 0.9% 100 ML IV SCH ×2 (11:00→18:07)
--- NOTE | 2017-10-21 11:31 | CR ---
EXAMINATION: Left foot HISTORY: History of injury COMPARISON: None TECHNIQUE: 3 views FINDINGS: There are old healed displaced fracture deformities of the second through third metatarsals . Likely old proximal fifth metatarsal fracture also noted. The second, third, and fourth metatarsals appear displaced versus impaction of the cuneiforms. Widening of the first and second interspace may suggest a chronic Lisfranc ligament injury. Moderate soft tissue swelling dorsally. Bone mineralizat ion otherwise appears normal. No acute appearing fracture identified. IMPRESSION: 1. Chronic appearing fracture deformities involving the second through fourth metatarsals which are l ikely chronically displaced. The MTP joint relative to the cuneiforms is not well characterized radio graphically. 2. Moderate overlying soft tissue swelling.
[2017-10-21] MEDS: DAPTOMYCIN IV SCH (18:03)
[2017-10-21] MEDS: SODIUM CHLORIDE 0.9% IV SCH (18:03)
--- NOTE | 2017-10-21 19:27 | PCM.CONSN ---
<Baluch,Tawanda - Last Filed: 10/21/17 19:22> - General Info Date of Service: 10/21/17 Admission Dx/Problem (Free Text): Admission Diagnosis/Problem Admission Diagnosis/Problem Tenosynovitis of finger, hand, or wrist Subjective Update: No overnight events. Patients pain is controlled. Functional Status: Reports: Pain Controlled, Tolerating Diet, Ambulating - Review of Systems General: Reports: No Symptoms HEENT: Reports: No Symptoms Pulmonary: Reports: No Symptoms Cardiovascular: Reports: No Symptoms Gastrointestinal: Reports: No Symptoms Genitourinary: Reports: No Symptoms Musculoskeletal: Reports: No Symptoms Skin: Reports: No Symptoms Neurological: Reports: No Symptoms Psychiatric: Reports: No Symptoms - Patient Data Vitals - Most Recent: Last Vital Signs Temp 36.8 C 10/21/17 16:00 Pulse 98 10/21/17 16:00 Resp 18 10/21/17 16:00 BP 144/95 H 10/21/17 16:00 Pulse Ox 94 L 10/21/17 16:00 Weight - Most Recent: 209 lb 7.026 oz I&O - Last 24 Hours: Intake & Output 10/21/17 10/21/17 10/21/17 06:59 14:59 22:59 Intake Total 5933 431 1232 Output Total 600 800 Balance 204 480 8092 Lab Results Last 24 Hours: Laboratory Results - last 24 hr 10/21/17 10/21/17 10/21/17 Range/Units 05:35 05:35 05:35 WBC 20.56 H (4.0-11.0) K/uL RBC 3.94 L (4.50-5.90) M/uL Hgb 11.2 L (13.0-17.0) g/dL Hct 33.3 L (38.0-50.0) % MCV 84.5 (80.0-98.0) fL MCH 28.4 (27.0-32.0) pg MCHC 33.6 (31.0-37.0) g/dL RDW Std Deviation 38.6 (28.0-62.0) fl RDW Coeff of Juan Alberto 13 (11.0-15.0) % Plt Count 282 (150-400) K/uL MPV 10.10 (7.40-12.00) fL Add Manual Diff YES Neutrophils % (Manual) 85 H (48.0-80.0) % Band Neutrophils % 1 % Lymphocytes % (Manual) 10 L (16.0-40.0) % Monocytes % (Manual) 3 (0.0-15.0) % Eosinophils % (Manual) 1 (0.0-7.0) % Nucleated RBC % 0.0 /100WBC Absolute Seg Neuts 17.5 H (1.4-5.7) Band Neutrophils # 0.2 Lymphocytes # (Manual) 2.1 (0.6-2.4) Monocytes # (Manual) 0.6 (0.0-0.8) Eosinophils # (Manual) 0.2 (0.0-0.7) Nucleated RBCs # 0 K/uL ESR 100 H (0-14) mm/hr Sodium 129 L (136-148) mmol/L Potassium 4.0 (3.5-5.1) mmol/L Chloride 97 L (98-107) mmol/L Carbon Dioxide 25.7 (21.0-32.0) mmol/L BUN 20 H (7.0-18.0) mg/dL Creatinine 1.6 H (0.8-1.3) mg/dL Est Cr Clr Drug Dosing 58.93 mL/min Estimated GFR (MDRD) 46.6 ml/min Glucose 156 H (74-106) mg/dL POC Glucose (60-110) mg/dL Calcium 8.4 L (8.5-10.1) mg/dL 10/21/17 10/21/17 10/21/17 Range/Units 06:10 11:42 13:23 WBC (4.0-11.0) K/uL RBC (4.50-5.90) M/uL Hgb (13.0-17.0) g/dL Hct (38.0-50.0) % MCV (80.0-98.0) fL MCH (27.0-32.0) pg MCHC (31.0-37.0) g/dL RDW Std Deviation (28.0-62.0) fl RDW Coeff of Juan Alberto (11.0-15.0) % Plt Count (150-400) K/uL MPV (7.40-12.00) fL Add Manual Diff Neutrophils % (Manual) (48.0-80.0) % Band Neutrophils % % Lymphocytes % (Manual) (16.0-40.0) % Monocytes % (Manual) (0.0-15.0) % Eosinophils % (Manual) (0.0-7.0) % Nucleated RBC % /100WBC Absolute Seg Neuts (1.4-5.7) Band Neutrophils # Lymphocytes # (Manual) (0.6-2.4) Monocytes # (Manual) (0.0-0.8) Eosinophils # (Manual) (0.0-0.7) Nucleated RBCs # K/uL ESR (0-14) mm/hr Sodium (136-148) mmol/L Potassium (3.5-5.1) mmol/L Chloride (98-107) mmol/L Carbon Dioxide (21.0-32.0) mmol/L BUN (7.0-18.0) mg/dL Creatinine (0.8-1.3) mg/dL Est Cr Clr Drug Dosing mL/min Estimated GFR (MDRD) ml/min Glucose (74-106) mg/dL POC Glucose 159 H 134 H 196 H (60-110) mg/dL Calcium (8.5-10.1) mg/dL 10/21/17 Range/Units 16:28 WBC (4.0-11.0) K/uL RBC (4.50-5.90) M/uL Hgb (13.0-17.0) g/dL Hct (38.0-50.0) % MCV (80.0-98.0) fL MCH (27.0-32.0) pg MCHC (31.0-37.0) g/dL RDW Std Deviation (28.0-62.0) fl RDW Coeff of Juan Alberto (11.0-15.0) % Plt Count (150-400) K/uL MPV (7.40-12.00) fL Add Manual Diff Neutrophils % (Manual) (48.0-80.0) % Band Neutrophils % % Lymphocytes % (Manual) (16.0-40.0) % Monocytes % (Manual) (0.0-15.0) % Eosinophils % (Manual) (0.0-7.0) % Nucleated RBC % /100WBC Absolute Seg Neuts (1.4-5.7) Band Neutrophils # Lymphocytes # (Manual) (0.6-2.4) Monocytes # (Manual) (0.0-0.8) Eosinophils # (Manual) (0.0-0.7) Nucleated RBCs # K/uL ESR (0-14) mm/hr Sodium (136-148) mmol/L Potassium (3.5-5.1) mmol/L Chloride (98-107) mmol/L Carbon Dioxide (21.0-32.0) mmol/L BUN (7.0-18.0) mg/dL Creatinine (0.8-1.3) mg/dL Est Cr Clr Drug Dosing mL/min Estimated GFR (MDRD) ml/min Glucose (74-106) mg/dL POC Glucose 277 H (60-110) mg/dL Calcium (8.5-10.1) mg/dL Alejo Results Last 24 Hours: Microbiology 10/18/17 22:22 Aerobic Blood Culture - Preliminary Blood - Venous - Lab Draw NO GROWTH AFTER 2 DAYS Anaerobic Blood Culture - Preliminary NO GROWTH AFTER 2 DAYS 10/18/17 22:11 Aerobic Blood Culture - Preliminary Blood - Venous NO GROWTH AFTER 2 DAYS Anaerobic Blood Culture - Preliminary NO GROWTH AFTER 2 DAYS 10/20/17 16:44 Gram Stain - Preliminary Hand, Left 10/20/17 17:00 Gram Stain - Preliminary Bone / Bone Biopsy - Hand, Left Med Orders - Current: Current Medications Acetaminophen (Tylenol) 650 mg PO Q6H PRN PRN Reason: Fever Last Admin: 10/18/17 21:36 Dose: 650 mg Diphenhydramine HCl (Benadryl) 25 mg PO Q6H PRN PRN Reason: Itching Last Admin: 10/18/17 01:02 Dose: 25 mg Hydromorphone HCl (Dilaudid) 1 mg IVPUSH Q2H PRN PRN Reason: Pain (moderate 4-6) Last Admin: 10/20/17 21:54 Dose: 1 mg Daptomycin 900 mg/ Sodium (Chloride) 18 mls @ 540 mls/hr IV Q24H [facility] Last Admin: 10/21/17 18:03 Dose: 540 mls/hr Penicillin G Potassium 2.5 (millunits/ Dextrose/Water) 100 mls @ 200 mls/hr IV Q4H [facility] Last Admin: 10/21/17 15:18 Dose: 200 mls/hr Sodium Chloride (Normal Saline) 1,000 mls @ 100 mls/hr IV ASDIRECTED [facility] Last Admin: 10/21/17 18:06 Dose: 100 mls/hr Meropenem 1 gm/ Sodium (Chloride) 100 mls @ 100 mls/hr IV Q8H [facility] Last Admin: 10/21/17 18:07 Dose: 100 mls/hr Insulin Aspart (Novolog) 9 unit SUBCUT TIDAC [facility] Last Admin: 10/21/17 16:38 Dose: 9 units Insulin Glargine (Lantus Solostar) 20 units SUBCUT DAILY [facility] Last Admin: 10/21/17 08:22 Dose: 20 units Ondansetron HCl (Zofran Odt) 4 mg PO Q4H PRN PRN Reason: Nausea/Vomiting Oxycodone HCl (Oxycodone) 5 - 10 mg PO Q3H PRN PRN Reason: Pain Last Admin: 10/21/17 16:37 Dose: 10 mg Discontinued Medications Bupivacaine HCl/Epinephrine Bitart (Marcaine 0.25%/Epinephrine 1:200,000) 10 ml INJECT ONETIME ONE Stop: 10/15/17 08:01 Last Admin: 10/15/17 15:14 Dose: Not Given Cefazolin Sodium (Ancef) Confirm Administered Dose 2 gm .ROUTE .STK-MED ONE Stop: 10/15/17 11:54 Fentanyl (Sublimaze) Confirm Administered Dose 250 mcg .ROUTE .STK-MED ONE Stop: 10/15/17 11:54 Fentanyl (Sublimaze) 50 mcg IVPUSH .Q5MIN PRN PRN Reason: Pain Fentanyl (Sublimaze) Confirm Administered Dose 250 mcg .ROUTE .STK-MED ONE Stop: 10/20/17 15:20 Hydromorphone HCl (Dilaudid) Confirm Administered Dose 2 mg .ROUTE .STK-MED ONE Stop: 10/20/17 16:45 Cefazolin Sodium/Dextrose 2 gm (/ Premix) 50 mls @ 100 mls/hr IV ONETIME ONE Stop: 10/15/17 08:29 Last Admin: 10/15/17 15:14 Dose: Not Given Lactated Ringer's (Ringers, Lactated) 1,000 mls @ 125 [facility]ls[facility] Last Admin: 10/20/17 11:37 Dose: 125 mls/hr Bupivacaine HCl/Epinephrine Bitart (Sensorc Mpf 0.25%-Epi 1:911099) Confirm Administered Dose 30 mls @ as directed .ROUTE .STK-MED ONE Stop: 10/15/17 07:25 Sodium Chloride (Normal Saline) Confirm Administered Dose 20 mls @ as directed .ROUTE .STK-MED ONE Stop: 10/15/17 11:54 Piperacillin Sod/Tazobactam (Sod 3.375 gm/ Sodium Chloride) 50 mls @ 100 mls/ hr IV Q6H [facility] Last Admin: 10/19/17 05:01 Dose: 100 mls/hr Clindamycin Phosphate 300 mg/ (Premix) 50 mls @ 100 mls/hr IV Q6H [facility] Last Admin: 10/18/17 15:08 Dose: 100 mls/hr Bupivacaine HCl/Epinephrine Bitart (Sensorc Mpf 0.25%-Epi 1:530618) Confirm Administered Dose 30 mls @ as directed .ROUTE .STK-MED ONE Stop: 10/20/17 15:55 Meropenem 1 gm/ Sodium (Chloride) 100 mls @ 100 mls/hr IV Q8H [facility] Last Admin: 10/21/17 11:07 Dose: Not Given Ibuprofen (Motrin) 800 mg PO Q6H PRN PRN Reason: Pain Last Admin: 10/17/17 00:55 Dose: 800 mg Insulin Aspart (Novolog) 7 unit SUBCUT TIDAC [facility] Last Admin: 10/17/17 06:57 Dose: 7 units Insulin Glargine (Lantus Solostar) 15 units SUBCUT DAILY [facility] Last Admin: 10/16/17 09:28 Dose: 15 units Insulin Glargine (Lantus Solostar) 17 units SUBCUT DAILY [facility] Last Admin: 10/17/17 08:34 Dose: 17 units Insulin Glargine (Lantus Solostar) 2 units SUBCUT ONETIME ONE Stop: 10/16/17 11:40 Last Admin: 10/16/17 12:35 Dose: 2 units Insulin Glargine (Lantus Solostar) 19 units SUBCUT DAILY [facility] Last Admin: 10/19/17 08:11 Dose: 19 units Ketorolac Tromethamine (Toradol) Confirm Administered Dose 30 mg .ROUTE .STK- MED ONE Stop: 10/15/17 11:54 Lidocaine (Xylocaine-Mpf 2%) Confirm Administered Dose 5 ml .ROUTE .STK-MED ONE Stop: 10/15/17 11:51 Lidocaine (Xylocaine-Mpf 2%) Confirm Administered Dose 5 ml .ROUTE .STK-MED ONE Stop: 10/20/17 15:20 Midazolam HCl (Versed 1 Mg/Ml) Confirm Administered Dose 2 mg .ROUTE .STK-MED ONE Stop: 10/15/17 11:53 Midazolam HCl (Versed 1 Mg/Ml) Confirm Administered Dose 2 mg .ROUTE .STK-MED ONE Stop: 10/20/17 15:20 Morphine Sulfate (Morphine) 2 mg IVPUSH Q2H PRN PRN Reason: Pain Last Admin: 10/15/17 22:58 Dose: 2 mg Morphine Sulfate (Morphine) 2 - 4 mg IVPUSH Q2H PRN PRN Reason: Pain Last Admin: 10/20/17 19:31 Dose: 4 mg Ondansetron HCl (Zofran) Confirm Administered Dose 4 mg .ROUTE .STK-MED ONE Stop: 10/15/17 11:54 Ondansetron HCl (Zofran) Confirm Administered Dose 4 mg .ROUTE .STK-MED ONE Stop: 10/20/17 15:19 Oxycodone HCl (Oxycodone) 5 mg PO Q3H PRN PRN Reason: Pain Last Admin: 10/15/17 23:43 Dose: 5 mg Propofol (Diprivan 20 Ml) Confirm Administered Dose 200 mg .ROUTE .STK-MED ONE Stop: 10/15/17 11:53 Propofol (Diprivan 20 Ml) Confirm Administered Dose 200 mg .ROUTE .STK-MED ONE Stop: 10/15/17 14:17 Propofol (Diprivan 20 Ml) Confirm Administered Dose 200 mg .ROUTE .STK-MED ONE Stop: 10/20/17 15:20 Propofol (Diprivan 20 Ml) Confirm Administered Dose 200 mg .ROUTE .STK-MED ONE Stop: 10/20/17 16:35 Propofol (Diprivan 20 Ml) Confirm Administered Dose 200 mg .ROUTE .STK-MED ONE Stop: 10/20/17 17:00 - Exam Quality Assessment: Supplemental Oxygen General: Alert, Oriented HEENT: Pupils Equal, Pupils Reactive Neck: Supple Lungs: Clear to Auscultation, Normal Respiratory Effort Cardiovascular: Regular Rate, Regular Rhythm GI/Abdominal Exam: Normal Bowel Sounds, No Distention Back Exam: Normal Inspection Extremities: Normal Inspection, No Pedal Edema Skin: Dry Wound/Incisions: Dressing Dry and Intact Neurological: No New Focal Deficit Psy/Mental Status: Alert, Normal Affect, Normal Mood Consult PN Assessment/Plan Procedures: Procedures AMPUTATION OF FINGER/THUMB (09/22/17) ELECTROCARDIOGRAM TRACING (09/22/17) EMERGENCY DEPT VISIT (06/24/17) GLUCOSE BLOOD TEST (09/22/17) IMMUNIZATION ADMIN (06/24/17) TDAP VACCINE 7 YRS/> IM (06/24/17) TISSUE EXAM BY PATHOLOGIST (09/22/17) Problem List Initiated/Reviewed/Updated: Yes My Orders Last 24 Hours: My Active Orders 10/22/17 05:11 BMP [BASIC METABOLIC PANEL,BMP] [CHEM] AM ESR [SEDIMENTATION RATE AUTO] [HEME] AM 10/23/17 05:11 BMP [BASIC METABOLIC PANEL,BMP] [CHEM] AM ESR [SEDIMENTATION RATE AUTO] [HEME] AM 10/24/17 05:11 BMP [BASIC METABOLIC PANEL,BMP] [CHEM] AM ESR [SEDIMENTATION RATE AUTO] [HEME] AM Plan: 47 yo male with history of Uncontrolled NIDDM and non-adherence admitted for left hand abscess. Patient admitted to Plastic Surgery. Medicine consulted for multiple medical conditions #Tenosynovitis s/p I&D 1 day #6, Repeat I&D day 1 #Leukocytosis #Elevated ESR -patient afebrile with no systemic symptoms, denies exposure to HIV, denies history of IVDA, denies history of blood transfusion -WBC count: 9.9 (10/15), 14.5 (10/16), 17.9 (10/18), 18.4 (10/19), 19.3 (10/20), 20.5 (10/21) -ESR: 38 (10/18), 80 (10/19), 96 (10/20), 100 (10/21) -previously on Zosyn 10/15 to 10/19 -previously on on Clinda 300 mg IV Q from 10/16 to 10/18 -currently on Dapto 900 mg IV Q24H, started 10/18 -currently on PCN G 2.5 milliunits IV Q4H, started 10/19 -BC NGTD, Left hand tissue gram stain and culture -HIV negative Plan: -plastic surg discussed with off-site ID and will continue PCN G & Dapto and add Meropenem. Also stated that WBC count improvement may be delayed. Patient is otherwise doing well. #Subacute Kidney Injury, improving #Uncontrolled Diabetes #Non-adherence to therapy -high suspicion of underlying CKD however baseline renal function unavailable -Cr 1.6, GFR 43 -continue to monitor #Hyponatremia, mild, asymptomatic -corrected Na 130 -continue to monitor #Elevated BP without diagnosis of HTN -presumed secondary to pain -no indication for medical management -continue to monitor #Hyperglycemia #NIDDM, Uncontrolled #Non-adherence to treatment -Patient previously Metformin which he discontinued on his own -HbA1C 12.5%, BG ranging from 300-400 at admission -currently on Lantus 19 units for basal and Novolog 9 units for prandial -Premeal BG levels 200-300, Postprandial BG <180 Plan: -increase Lantus to 20 units QD & continue Novolog 9 units TIDAC -DM educator consulted - patient was given 1 month supply of samples of Lantus, Novolog, Pen needles, lancets and test strips -once patient discharged plan for Lantus 20 units QD, Novolog 10 units TIDAC & Metformin 500 mg QD. He will be given prescription for Metformin 500 mg BID for 30 days, he was instructed to use 500 mg QD for 1 month then increase to BID to decrease risk of side effects -f/u with pcp arranged <Astrid Fry - Last Filed: 10/21/17 22:10> - Patient Data Vitals - Most Recent: Last Vital Signs Temp 98.2 F 10/21/17 16:00 Pulse 98 10/21/17 16:00 Resp 18 10/21/17 16:00 BP 144/95 H 10/21/17 16:00 Pulse Ox 94 L 10/21/17 16:00 I&O - Last 24 Hours: Intake & Output 10/21/17 10/21/17 10/21/17 06:59 14:59 22:59 Intake Total 4238 264 9394 Output Total 600 800 Balance 239 138 3976 Lab Results Last 24 Hours: Laboratory Results - last 24 hr 05/17/18 05/17/18 05/17/18 Range/Units 05:35 05:35 05:35 WBC 20.56 H (4.0-11.0) K/uL RBC 3.94 L (4.50-5.90) M/uL Hgb 11.2 L (13.0-17.0) g/dL Hct 33.3 L (38.0-50.0) % MCV 84.5 (80.0-98.0) fL MCH 28.4 (27.0-32.0) pg MCHC 33.6 (31.0-37.0) g/dL RDW Std Deviation 38.6 (28.0-62.0) fl RDW Coeff of Juan Alberto 13 (11.0-15.0) % Plt Count 282 (150-400) K/uL MPV 10.10 (7.40-12.00) fL Add Manual Diff YES Neutrophils % (Manual) 85 H (48.0-80.0) % Band Neutrophils % 1 % Lymphocytes % (Manual) 10 L (16.0-40.0) % Monocytes % (Manual) 3 (0.0-15.0) % Eosinophils % (Manual) 1 (0.0-7.0) % Nucleated RBC % 0.0 /100WBC Absolute Seg Neuts 17.5 H (1.4-5.7) Band Neutrophils # 0.2 Lymphocytes # (Manual) 2.1 (0.6-2.4) Monocytes # (Manual) 0.6 (0.0-0.8) Eosinophils # (Manual) 0.2 (0.0-0.7) Nucleated RBCs # 0 K/uL ESR 100 H (0-14) mm/hr Sodium 129 L (136-148) mmol/L Potassium 4.0 (3.5-5.1) mmol/L Chloride 97 L (98-107) mmol/L Carbon Dioxide 25.7 (21.0-32.0) mmol/L BUN 20 H (7.0-18.0) mg/dL Creatinine 1.6 H (0.8-1.3) mg/dL Est Cr Clr Drug Dosing 58.93 mL/min Estimated GFR (MDRD) 46.6 ml/min Glucose 156 H (74-106) mg/dL POC Glucose (60-110) mg/dL Calcium 8.4 L (8.5-10.1) mg/dL 10/21/17 10/21/17 10/21/17 Range/Units 06:10 11:42 13:23 WBC (4.0-11.0) K/uL RBC (4.50-5.90) M/uL Hgb (13.0-17.0) g/dL Hct (38.0-50.0) % MCV (80.0-98.0) fL MCH (27.0-32.0) pg MCHC (31.0-37.0) g/dL RDW Std Deviation (28.0-62.0) fl RDW Coeff of Juan Alberto (11.0-15.0) % Plt Count (150-400) K/uL MPV (7.40-12.00) fL Add Manual Diff Neutrophils % (Manual) (48.0-80.0) % Band Neutrophils % % Lymphocytes % (Manual) (16.0-40.0) % Monocytes % (Manual) (0.0-15.0) % Eosinophils % (Manual) (0.0-7.0) % Nucleated RBC % /100WBC Absolute Seg Neuts (1.4-5.7) Band Neutrophils # Lymphocytes # (Manual) (0.6-2.4) Monocytes # (Manual) (0.0-0.8) Eosinophils # (Manual) (0.0-0.7) Nucleated RBCs # K/uL ESR (0-14) mm/hr Sodium (136-148) mmol/L Potassium (3.5-5.1) mmol/L Chloride (98-107) mmol/L Carbon Dioxide (21.0-32.0) mmol/L BUN (7.0-18.0) mg/dL Creatinine (0.8-1.3) mg/dL Est Cr Clr Drug Dosing mL/min Estimated GFR (MDRD) ml/min Glucose (74-106) mg/dL POC Glucose 159 H 134 H 196 H (60-110) mg/dL Calcium (8.5-10.1) mg/dL 10/21/17 Range/Units 16:28 WBC (4.0-11.0) K/uL RBC (4.50-5.90) M/uL Hgb (13.0-17.0) g/dL Hct (38.0-50.0) % MCV (80.0-98.0) fL MCH (27.0-32.0) pg MCHC (31.0-37.0) g/dL RDW Std Deviation (28.0-62.0) fl RDW Coeff of Juan Alberto (11.0-15.0) % Plt Count (150-400) K/uL MPV (7.40-12.00) fL Add Manual Diff Neutrophils % (Manual) (48.0-80.0) % Band Neutrophils % % Lymphocytes % (Manual) (16.0-40.0) % Monocytes % (Manual) (0.0-15.0) % Eosinophils % (Manual) (0.0-7.0) % Nucleated RBC % /100WBC Absolute Seg Neuts (1.4-5.7) Band Neutrophils # Lymphocytes # (Manual) (0.6-2.4) Monocytes # (Manual) (0.0-0.8) Eosinophils # (Manual) (0.0-0.7) Nucleated RBCs # K/uL ESR (0-14) mm/hr Sodium (136-148) mmol/L Potassium (3.5-5.1) mmol/L Chloride (98-107) mmol/L Carbon Dioxide (21.0-32.0) mmol/L BUN (7.0-18.0) mg/dL Creatinine (0.8-1.3) mg/dL Est Cr Clr Drug Dosing mL/min Estimated GFR (MDRD) ml/min Glucose (74-106) mg/dL POC Glucose 277 H (60-110) mg/dL Calcium (8.5-10.1) mg/dL Alejo Results Last 24 Hours: Microbiology 10/18/17 22:22 Aerobic Blood Culture - Preliminary Blood - Venous - Lab Draw NO GROWTH AFTER 2 DAYS Anaerobic Blood Culture - Preliminary NO GROWTH AFTER 2 DAYS 10/18/17 22:11 Aerobic Blood Culture - Preliminary Blood - Venous NO GROWTH AFTER 2 DAYS Anaerobic Blood Culture - Preliminary NO GROWTH AFTER 2 DAYS 10/20/17 16:44 Gram Stain - Preliminary Hand, Left 10/20/17 17:00 Gram Stain - Preliminary Bone / Bone Biopsy - Hand, Left Med Orders - Current: Current Medications Acetaminophen (Tylenol) 650 mg PO Q6H PRN PRN Reason: Fever Last Admin: 10/18/17 21:36 Dose: 650 mg Diphenhydramine HCl (Benadryl) 25 mg PO Q6H PRN PRN Reason: Itching Last Admin: 10/18/17 01:02 Dose: 25 mg Hydromorphone HCl (Dilaudid) 1 mg IVPUSH Q2H PRN PRN Reason: Pain (moderate 4-6) Last Admin: 10/20/17 21:54 Dose: 1 mg Daptomycin 900 mg/ Sodium (Chloride) 18 mls @ 540 mls/hr IV Q24H [facility] Last Admin: 10/21/17 18:03 Dose: 540 mls/hr Penicillin G Potassium 2.5 (millunits/ Dextrose/Water) 100 mls @ 200 mls/hr IV Q4H [facility] Last Admin: 10/21/17 19:58 Dose: 200 mls/hr Sodium Chloride (Normal Saline) 1,000 mls @ 100 mls/hr IV ASDIRECTED [facility] Last Admin: 10/21/17 18:06 Dose: 100 mls/hr Meropenem 1 gm/ Sodium (Chloride) 100 mls @ 100 mls/hr IV Q8H [facility] Last Admin: 10/21/17 18:07 Dose: 100 mls/hr Insulin Aspart (Novolog) 9 unit SUBCUT TIDAC [facility] Last Admin: 10/21/17 16:38 Dose: 9 units Insulin Glargine (Lantus Solostar) 25 units SUBCUT DAILY [facility] Ondansetron HCl (Zofran Odt) 4 mg PO Q4H PRN PRN Reason: Nausea/Vomiting Oxycodone HCl (Oxycodone) 5 - 10 mg PO Q3H PRN PRN Reason: Pain Last Admin: 10/21/17 19:56 Dose: 10 mg Discontinued Medications Bupivacaine HCl/Epinephrine Bitart (Marcaine 0.25%/Epinephrine 1:200,000) 10 ml INJECT ONETIME ONE Stop: 10/15/17 08:01 Last Admin: 10/15/17 15:14 Dose: Not Given Cefazolin Sodium (Ancef) Confirm Administered Dose 2 gm .ROUTE .STK-MED ONE Stop: 10/15/17 11:54 Fentanyl (Sublimaze) Confirm Administered Dose 250 mcg .ROUTE .STK-MED ONE Stop: 10/15/17 11:54 Fentanyl (Sublimaze) 50 mcg IVPUSH .Q5MIN PRN PRN Reason: Pain Fentanyl (Sublimaze) Confirm Administered Dose 250 mcg .ROUTE .STK-MED ONE Stop: 10/20/17 15:20 Hydromorphone HCl (Dilaudid) Confirm Administered Dose 2 mg .ROUTE .STK-MED ONE Stop: 10/20/17 16:45 Cefazolin Sodium/Dextrose 2 gm (/ Premix) 50 mls @ 100 mls/hr IV ONETIME ONE Stop: 10/15/17 08:29 Last Admin: 10/15/17 15:14 Dose: Not Given Lactated Ringer's (Ringers, Lactated) 1,000 mls @ 125 mls/hr IV ASDIRECTED [facility] Last Admin: 10/20/17 11:37 Dose: 125 mls/hr Bupivacaine HCl/Epinephrine Bitart (Sensorc Mpf 0.25%-Epi 1:511001) Confirm Administered Dose 30 mls @ as directed .ROUTE .STK-MED ONE Stop: 10/15/17 07:25 Sodium Chloride (Normal Saline) Confirm Administered Dose 20 mls @ as directed .ROUTE .STK-MED ONE Stop: 10/15/17 11:54 Piperacillin Sod/Tazobactam (Sod 3.375 gm/ Sodium Chloride) 50 mls @ 100 mls/ hr IV Q6H [facility] Last Admin: 10/19/17 05:01 Dose: 100 mls/hr Clindamycin Phosphate 300 mg/ (Premix) 50 mls @ 100 mls/hr IV Q6H [facility] Last Admin: 10/18/17 15:08 Dose: 100 mls/hr Bupivacaine HCl/Epinephrine Bitart (Sensorc Mpf 0.25%-Epi 1:115631) Confirm Administered Dose 30 mls @ as directed .ROUTE .STK-MED ONE Stop: 10/20/17 15:55 Meropenem 1 gm/ Sodium (Chloride) 100 mls @ 100 mls/hr IV Q8H [facility] Last Admin: 10/21/17 11:07 Dose: Not Given Ibuprofen (Motrin) 800 mg PO Q6H PRN PRN Reason: Pain Last Admin: 10/17/17 00:55 Dose: 800 mg Insulin Aspart (Novolog) 7 unit SUBCUT TIDAC [facility] Last Admin: 10/17/17 06:57 Dose: 7 units Insulin Glargine (Lantus Solostar) 15 units SUBCUT DAILY [facility] Last Admin: 10/16/17 09:28 Dose: 15 units Insulin Glargine (Lantus Solostar) 17 units SUBCUT DAILY [facility] Last Admin: 10/17/17 08:34 Dose: 17 units Insulin Glargine (Lantus Solostar) 2 units SUBCUT ONETIME ONE Stop: 10/16/17 11:40 Last Admin: 10/16/17 12:35 Dose: 2 units Insulin Glargine (Lantus Solostar) 19 units SUBCUT DAILY [facility] Last Admin: 10/19/17 08:11 Dose: 19 units Insulin Glargine (Lantus Solostar) 20 units SUBCUT DAILY [facility] Last Admin: 10/21/17 08:22 Dose: 20 units Ketorolac Tromethamine (Toradol) Confirm Administered Dose 30 mg .ROUTE .STK- MED ONE Stop: 10/15/17 11:54 Lidocaine (Xylocaine-Mpf 2%) Confirm Administered Dose 5 ml .ROUTE .STK-MED ONE Stop: 10/15/17 11:51 Lidocaine (Xylocaine-Mpf 2%) Confirm Administered Dose 5 ml .ROUTE .STK-MED ONE Stop: 10/20/17 15:20 Midazolam HCl (Versed 1 Mg/Ml) Confirm Administered Dose 2 mg .ROUTE .STK-MED ONE Stop: 10/15/17 11:53 Midazolam HCl (Versed 1 Mg/Ml) Confirm Administered Dose 2 mg .ROUTE .STK-MED ONE Stop: 10/20/17 15:20 Morphine Sulfate (Morphine) 2 mg IVPUSH Q2H PRN PRN Reason: Pain Last Admin: 10/15/17 22:58 Dose: 2 mg Morphine Sulfate (Morphine) 2 - 4 mg IVPUSH Q2H PRN PRN Reason: Pain Last Admin: 10/20/17 19:31 Dose: 4 mg Ondansetron HCl (Zofran) Confirm Administered Dose 4 mg .ROUTE .STK-MED ONE Stop: 10/15/17 11:54 Ondansetron HCl (Zofran) Confirm Administered Dose 4 mg .ROUTE .STK-MED ONE Stop: 10/20/17 15:19 Oxycodone HCl (Oxycodone) 5 mg PO Q3H PRN PRN Reason: Pain Last Admin: 10/15/17 23:43 Dose: 5 mg Propofol (Diprivan 20 Ml) Confirm Administered Dose 200 mg .ROUTE .STK-MED ONE Stop: 10/15/17 11:53 Propofol (Diprivan 20 Ml) Confirm Administered Dose 200 mg .ROUTE .STK-MED ONE Stop: 10/15/17 14:17 Propofol (Diprivan 20 Ml) Confirm Administered Dose 200 mg .ROUTE .STK-MED ONE Stop: 10/20/17 15:20 Propofol (Diprivan 20 Ml) Confirm Administered Dose 200 mg .ROUTE .STK-MED ONE Stop: 10/20/17 16:35 Propofol (Diprivan 20 Ml) Confirm Administered Dose 200 mg .ROUTE .STK-MED ONE Stop: 10/20/17 17:00 Consult PN Assessment/Plan Procedures: Procedures AMPUTATION OF FINGER/THUMB (09/22/17) ELECTROCARDIOGRAM TRACING (09/22/17) EMERGENCY DEPT VISIT (06/24/17) GLUCOSE BLOOD TEST (09/22/17) IMMUNIZATION ADMIN (06/24/17) TDAP VACCINE 7 YRS/> IM (06/24/17) TISSUE EXAM BY PATHOLOGIST (09/22/17) My Orders Last 24 Hours: My Active Orders 10/22/17 09:00 Insulin Glarg,Human.Rec.Analog [LantUS Solostar] 25 units SUBCUT DAILY Plan: Patient seen and examined . Agree with assessment and plan. Will increase lantus to 25 units po daily , f/up Bs
[2017-10-22] MEDS: oxyCODONE 5 MG Tab PO PRN ×4 (00:24→20:35)
[2017-10-22] MEDS: Meropenem 1 GM in Sodium Chloride 0.9% 100 ML IV SCH ×3 (00:32→17:41)
[2017-10-22] MEDS: Penicillin G Potassium 2.5 MILLUNITS in Dextrose 5% in Water 100 ML IV SCH ×12 (04:03→23:30)
[2017-10-22] MEDS: Sodium Chloride 0.9% 1,000 ML IV SCH ×2 (04:07→17:38)
[2017-10-22] MEDS: Insulin Aspart 100 Units/ML 3 ML Pen SUBCUT SCH ×3 (09:12→17:43)
[2017-10-22] MEDS: Insulin Glargine,Human Rec. Analog 100 Units/ML 3 ML Pen SUBCUT SCH (09:34)
--- NOTE | 2017-10-22 10:43 | PCM.PN ---
- General Info Date of Service: 10/22/17 Admission Dx/Problem (Free Text): Admission Diagnosis/Problem Admission Diagnosis/Problem Tenosynovitis of finger, hand, or wrist Subjective Update: Subjective improvement from patient. Redness still present but minor improvement in swelling. Incision intact without drainage. Catheter came out overnight. Functional Status: Reports: Pain Controlled - Review of Systems General: Reports: No Symptoms HEENT: Reports: No Symptoms Pulmonary: Reports: No Symptoms Musculoskeletal: Reports: Hand Pain Skin: Reports: Other (redness but some itching now. ) - Patient Data Vitals - Most Recent: Last Vital Signs Temp 98.9 F 10/22/17 04:00 Pulse 101 H 10/22/17 04:00 Resp 16 10/22/17 04:00 BP 147/88 H 10/22/17 04:00 Pulse Ox 96 10/22/17 04:00 Weight - Most Recent: 209 lb 7.026 oz I&O - Last 24 Hours: Intake & Output 10/21/17 10/22/17 10/22/17 23:59 07:59 15:59 Intake Total 3397 2333 Output Total 800 525 Balance 2597 1808 Lab Results Last 24 Hours: Laboratory Results - last 24 hr 10/21/17 10/21/17 10/21/17 Range/Units 11:42 13:23 16:28 ESR (0-14) mm/hr Sodium (136-148) mmol/L Potassium (3.5-5.1) mmol/L Chloride (98-107) mmol/L Carbon Dioxide (21.0-32.0) mmol/L BUN (7.0-18.0) mg/dL Creatinine (0.8-1.3) mg/dL Est Cr Clr Drug Dosing mL/min Estimated GFR (MDRD) ml/min Glucose (74-106) mg/dL POC Glucose 134 H 196 H 277 H (60-110) mg/dL Calcium (8.5-10.1) mg/dL 10/22/17 10/22/17 10/22/17 Range/Units 05:05 05:05 05:58 ESR 113 H (0-14) mm/hr Sodium 130 L (136-148) mmol/L Potassium 4.0 (3.5-5.1) mmol/L Chloride 98 (98-107) mmol/L Carbon Dioxide 25.7 (21.0-32.0) mmol/L BUN 21 H (7.0-18.0) mg/dL Creatinine 1.6 H (0.8-1.3) mg/dL Est Cr Clr Drug Dosing 58.93 mL/min Estimated GFR (MDRD) 46.6 ml/min Glucose 147 H (74-106) mg/dL POC Glucose 137 H (60-110) mg/dL Calcium 8.4 L (8.5-10.1) mg/dL 10/22/17 Range/Units 09:21 ESR (0-14) mm/hr Sodium (136-148) mmol/L Potassium (3.5-5.1) mmol/L Chloride (98-107) mmol/L Carbon Dioxide (21.0-32.0) mmol/L BUN (7.0-18.0) mg/dL Creatinine (0.8-1.3) mg/dL Est Cr Clr Drug Dosing mL/min Estimated GFR (MDRD) ml/min Glucose (74-106) mg/dL POC Glucose 155 H (60-110) mg/dL Calcium (8.5-10.1) mg/dL Alejo Results Last 24 Hours: Microbiology 10/20/17 17:00 Gram Stain - Final Bone / Bone Biopsy - Hand, Left Wound Culture - Final No Growth 10/20/17 16:44 Gram Stain - Final Hand, Left Wound Culture - Final No Growth Anaerobic Culture - Final NO ANAEROBES ISOLATED 10/18/17 22:22 Aerobic Blood Culture - Preliminary Blood - Venous - Lab Draw NO GROWTH AFTER 3 DAYS Anaerobic Blood Culture - Preliminary NO GROWTH AFTER 3 DAYS 10/18/17 22:11 Aerobic Blood Culture - Preliminary Blood - Venous NO GROWTH AFTER 3 DAYS Anaerobic Blood Culture - Preliminary NO GROWTH AFTER 3 DAYS Med Orders - Current: Current Medications Acetaminophen (Tylenol) 650 mg PO Q6H PRN PRN Reason: Fever Last Admin: 10/18/17 21:36 Dose: 650 mg Diphenhydramine HCl (Benadryl) 25 mg PO Q6H PRN PRN Reason: Itching Last Admin: 10/18/17 01:02 Dose: 25 mg Hydromorphone HCl (Dilaudid) 1 mg IVPUSH Q2H PRN PRN Reason: Pain (moderate 4-6) Last Admin: 10/20/17 21:54 Dose: 1 mg Daptomycin 900 mg/ Sodium (Chloride) 18 mls @ 540 mls/hr IV Q24H [facility] Last Admin: 10/21/17 18:03 Dose: 540 mls/hr Penicillin G Potassium 2.5 (millunits/ Dextrose/Water) 100 mls @ 200 mls/hr IV Q4H [facility] Last Admin: 10/22/17 09:13 Dose: 200 mls/hr Sodium Chloride (Normal Saline) 1,000 mls @ 100 mls/hr IV ASDIRECTED [facility] Last Admin: 10/22/17 04:07 Dose: 100 mls/hr Meropenem 1 gm/ Sodium (Chloride) 100 mls @ 100 mls/hr IV Q8H [facility] Last Admin: 10/22/17 10:38 Dose: 100 mls/hr Insulin Aspart (Novolog) 9 unit SUBCUT TIDAC [facility] Last Admin: 10/22/17 09:12 Dose: Not Given Insulin Glargine (Lantus Solostar) 25 units SUBCUT DAILY [facility] Last Admin: 10/22/17 09:34 Dose: 25 units Ondansetron HCl (Zofran Odt) 4 mg PO Q4H PRN PRN Reason: Nausea/Vomiting Oxycodone HCl (Oxycodone) 5 - 10 mg PO Q3H PRN PRN Reason: Pain Last Admin: 10/22/17 08:28 Dose: 10 mg Discontinued Medications Bupivacaine HCl/Epinephrine Bitart (Marcaine 0.25%/Epinephrine 1:200,000) 10 ml INJECT ONETIME ONE Stop: 10/15/17 08:01 Last Admin: 10/15/17 15:14 Dose: Not Given Cefazolin Sodium (Ancef) Confirm Administered Dose 2 gm .ROUTE .STK-MED ONE Stop: 10/15/17 11:54 Fentanyl (Sublimaze) Confirm Administered Dose 250 mcg .ROUTE .STK-MED ONE Stop: 10/15/17 11:54 Fentanyl (Sublimaze) 50 mcg IVPUSH .Q5MIN PRN PRN Reason: Pain Fentanyl (Sublimaze) Confirm Administered Dose 250 mcg .ROUTE .STK-MED ONE Stop: 10/20/17 15:20 Hydromorphone HCl (Dilaudid) Confirm Administered Dose 2 mg .ROUTE .STK-MED ONE Stop: 10/20/17 16:45 Cefazolin Sodium/Dextrose 2 gm (/ Premix) 50 mls @ 100 mls/hr IV ONETIME ONE Stop: 10/15/17 08:29 Last Admin: 10/15/17 15:14 Dose: Not Given Lactated Ringer's (Ringers, Lactated) 1,000 mls @ 125 mls/hr IV ASDIRECTED [facility] Last Admin: 10/20/17 11:37 Dose: 125 mls/hr Bupivacaine HCl/Epinephrine Bitart (Sensorc Mpf 0.25%-Epi 1:[id number]) Confirm Administered Dose 30 mls @ as directed .ROUTE .STK-MED ONE Stop: 10/15/17 07:25 Sodium Chloride (Normal Saline) Confirm Administered Dose 20 mls @ as directed .ROUTE .STK-MED ONE Stop: 10/15/17 11:54 Piperacillin Sod/Tazobactam (Sod 3.375 gm/ Sodium Chloride) 50 mls @ 100 mls/ hr IV Q6H [facility] Last Admin: 10/19/17 05:01 Dose: 100 mls/hr Clindamycin Phosphate 300 mg/ (Premix) 50 mls @ 100 mls/hr IV Q6H [facility] Last Admin: 10/18/17 15:08 Dose: 100 mls/hr Bupivacaine HCl/Epinephrine Bitart (Sensorc Mpf 0.25%-Epi 1:[id number]) Confirm Administered Dose 30 mls @ as directed .ROUTE .STK-MED ONE Stop: 10/20/17 15:55 Meropenem 1 gm/ Sodium (Chloride) 100 mls @ 100 mls/hr IV Q8H [facility] Last Admin: 10/21/17 11:07 Dose: Not Given Ibuprofen (Motrin) 800 mg PO Q6H PRN PRN Reason: Pain Last Admin: 10/17/17 00:55 Dose: 800 mg Insulin Aspart (Novolog) 7 unit SUBCUT TIDAC [facility] Last Admin: 10/17/17 06:57 Dose: 7 units Insulin Glargine (Lantus Solostar) 15 units SUBCUT DAILY [facility] Last Admin: 10/16/17 09:28 Dose: 15 units Insulin Glargine (Lantus Solostar) 17 units SUBCUT DAILY [facility] Last Admin: 10/17/17 08:34 Dose: 17 units Insulin Glargine (Lantus Solostar) 2 units SUBCUT ONETIME ONE Stop: 10/16/17 11:40 Last Admin: 10/16/17 12:35 Dose: 2 units Insulin Glargine (Lantus Solostar) 19 units SUBCUT DAILY [facility] Last Admin: 10/19/17 08:11 Dose: 19 units Insulin Glargine (Lantus Solostar) 20 units SUBCUT DAILY [facility] Last Admin: 10/21/17 08:22 Dose: 20 units Ketorolac Tromethamine (Toradol) Confirm Administered Dose 30 mg .ROUTE .STK- MED ONE Stop: 10/15/17 11:54 Lidocaine (Xylocaine-Mpf 2%) Confirm Administered Dose 5 ml .ROUTE .STK-MED ONE Stop: 10/15/17 11:51 Lidocaine (Xylocaine-Mpf 2%) Confirm Administered Dose 5 ml .ROUTE .STK-MED ONE Stop: 10/20/17 15:20 Midazolam HCl (Versed 1 Mg/Ml) Confirm Administered Dose 2 mg .ROUTE .STK-MED ONE Stop: 10/15/17 11:53 Midazolam HCl (Versed 1 Mg/Ml) Confirm Administered Dose 2 mg .ROUTE .STK-MED ONE Stop: 10/20/17 15:20 Morphine Sulfate (Morphine) 2 mg IVPUSH Q2H PRN PRN Reason: Pain Last Admin: 10/15/17 22:58 Dose: 2 mg Morphine Sulfate (Morphine) 2 - 4 mg IVPUSH Q2H PRN PRN Reason: Pain Last Admin: 10/20/17 19:31 Dose: 4 mg Ondansetron HCl (Zofran) Confirm Administered Dose 4 mg .ROUTE .STK-MED ONE Stop: 10/15/17 11:54 Ondansetron HCl (Zofran) Confirm Administered Dose 4 mg .ROUTE .STK-MED ONE Stop: 10/20/17 15:19 Oxycodone HCl (Oxycodone) 5 mg PO Q3H PRN PRN Reason: Pain Last Admin: 10/15/17 23:43 Dose: 5 mg Propofol (Diprivan 20 Ml) Confirm Administered Dose 200 mg .ROUTE .STK-MED ONE Stop: 10/15/17 11:53 Propofol (Diprivan 20 Ml) Confirm Administered Dose 200 mg .ROUTE .STK-MED ONE Stop: 10/15/17 14:17 Propofol (Diprivan 20 Ml) Confirm Administered Dose 200 mg .ROUTE .STK-MED ONE Stop: 10/20/17 15:20 Propofol (Diprivan 20 Ml) Confirm Administered Dose 200 mg .ROUTE .STK-MED ONE Stop: 10/20/17 16:35 Propofol (Diprivan 20 Ml) Confirm Administered Dose 200 mg .ROUTE .STK-MED ONE Stop: 10/20/17 17:00 - Exam General: Alert, Oriented, Cooperative Lungs: Normal Respiratory Effort Extremities: Redness (still present but minor improvement in swelling today. Subjective pain much improved per patient. Beginning range of motion. ) Skin: Warm, Dry Wound/Incisions: No Drainage, Erythema Improving (marginally but no extension and swelling somewhat better. Skin creases appearing at margins. ) Neurological: No New Focal Deficit - Problem List & Annotations (1) Tenosynovitis of finger and hand SNOMED Code(s): 601312389 Code(s): M65.9 - SYNOVITIS AND TENOSYNOVITIS, UNSPECIFIED Status: Acute Priority: High Current Visit: Yes (2) Frostbite SNOMED Code(s): 570181584 Code(s): T33.90XA - SUPERFICIAL FROSTBITE OF UNSPECIFIED SITES, INIT ENCNTR Status: Acute Priority: High Current Visit: No Qualifiers: Encounter type: sequela Qualified Code(s): T33.90XS - Superficial frostbite of unspecified sites, sequela - Problem List Review Problem List Initiated/Reviewed/Updated: Yes - My Orders Last 24 Hours: My Active Orders 10/23/17 08:00 CBC WITH AUTO DIFF [HEME] Routine - Assessment Assessment:: POD 2/5 I and D for tenosynovitis. Improvements marginal still needing IV therapy and pain control. - Plan Plan:: 47 yo male with history of Uncontrolled NIDDM and non-adherence admitted for left hand tenosynovitis. Flexor Tenosynovitis s/p I&D day #2/6 Afebrile. No systemic symptoms kristen infection. LAgging hand clinical picture and no other areas of concern aside from previous left foot injury. Discussed with Dr Shane. - Previously on Bactrim PO outpatient initially, Vancomycin and zosyn IV outpatient, Zosyn and Clindamycin from surgery until Yesterday evening. Changed to daptomycin and zosyn yesterday and now will transition to penicillin given strep pansensitivites. Discussed with ID in [place] - Dr Mendez. Continue meropenem for Penicillin, Dapto and Merepenem full spectrum coverage. - Blood sugars with improved control via hospitalist team. - Soaks begin for comfort and cleansing. - Xray of left foot given deformity but unlikely the source of any additional concerns. Dr Shaw aware. - Recheck am labs for WBC changes. - Dr Mira Shane will be covering for the weekend when I am out.
[2017-10-22] MEDS: HYDROmorphone 1 MG/ML Syringe IVPUSH PRN ×2 (15:01→23:26)
--- NOTE | 2017-10-22 15:39 | PCM.PN ---
- Patient Data Vitals - Most Recent: Last Vital Signs Temp 98.5 F 10/22/17 12:00 Pulse 104 H 10/22/17 12:00 Resp 18 10/22/17 12:00 BP 137/82 10/22/17 12:00 Pulse Ox 97 10/22/17 12:00 Weight - Most Recent: 209 lb 7.026 oz I&O - Last 24 Hours: Intake & Output 10/22/17 10/22/17 10/22/17 06:59 14:59 22:59 Intake Total 2333 Output Total 525 Balance 1808 Lab Results Last 24 Hours: Laboratory Results - last 24 hr 10/21/17 10/22/17 10/22/17 Range/Units 16:28 05:05 05:05 ESR 113 H (0-14) mm/hr Sodium 130 L (136-148) mmol/L Potassium 4.0 (3.5-5.1) mmol/L Chloride 98 (98-107) mmol/L Carbon Dioxide 25.7 (21.0-32.0) mmol/L BUN 21 H (7.0-18.0) mg/dL Creatinine 1.6 H (0.8-1.3) mg/dL Est Cr Clr Drug Dosing 58.93 mL/min Estimated GFR (MDRD) 46.6 ml/min Glucose 147 H (74-106) mg/dL POC Glucose 277 H (60-110) mg/dL Calcium 8.4 L (8.5-10.1) mg/dL 10/22/17 10/22/17 Range/Units 05:58 09:21 ESR (0-14) mm/hr Sodium (136-148) mmol/L Potassium (3.5-5.1) mmol/L Chloride (98-107) mmol/L Carbon Dioxide (21.0-32.0) mmol/L BUN (7.0-18.0) mg/dL Creatinine (0.8-1.3) mg/dL Est Cr Clr Drug Dosing mL/min Estimated GFR (MDRD) ml/min Glucose (74-106) mg/dL POC Glucose 137 H 155 H (60-110) mg/dL Calcium (8.5-10.1) mg/dL Alejo Results Last 24 Hours: Microbiology 10/20/17 17:00 Gram Stain - Final Bone / Bone Biopsy - Hand, Left Wound Culture - Final No Growth 10/20/17 16:44 Gram Stain - Final Hand, Left Wound Culture - Final No Growth Anaerobic Culture - Final NO ANAEROBES ISOLATED 10/18/17 22:22 Aerobic Blood Culture - Preliminary Blood - Venous - Lab Draw NO GROWTH AFTER 3 DAYS Anaerobic Blood Culture - Preliminary NO GROWTH AFTER 3 DAYS 10/18/17 22:11 Aerobic Blood Culture - Preliminary Blood - Venous NO GROWTH AFTER 3 DAYS Anaerobic Blood Culture - Preliminary NO GROWTH AFTER 3 DAYS Med Orders - Current: Current Medications Acetaminophen (Tylenol) 650 mg PO Q6H PRN PRN Reason: Fever Last Admin: 10/18/17 21:36 Dose: 650 mg Diphenhydramine HCl (Benadryl) 25 mg PO Q6H PRN PRN Reason: Itching Last Admin: 10/18/17 01:02 Dose: 25 mg Hydromorphone HCl (Dilaudid) 1 mg IVPUSH Q2H PRN PRN Reason: Pain (moderate 4-6) Last Admin: 10/22/17 15:01 Dose: 1 mg Daptomycin 900 mg/ Sodium (Chloride) 18 mls @ 540 mls/hr IV Q24H [facility] Last Admin: 10/21/17 18:03 Dose: 540 mls/hr Penicillin G Potassium 2.5 (millunits/ Dextrose/Water) 100 mls @ 200 mls/hr IV Q4H [facility] Last Admin: 10/22/17 15:04 Dose: 200 mls/hr Sodium Chloride (Normal Saline) 1,000 mls @ 100 mls/hr IV ASDIRECTED [facility] Last Admin: 10/22/17 04:07 Dose: 100 mls/hr Meropenem 1 gm/ Sodium (Chloride) 100 mls @ 100 mls/hr IV Q8H [facility] Last Admin: 10/22/17 10:38 Dose: 100 mls/hr Insulin Aspart (Novolog) 9 unit SUBCUT TIDAC [facility] Last Admin: 10/22/17 12:29 Dose: 9 units Insulin Glargine (Lantus Solostar) 25 units SUBCUT DAILY [facility] Last Admin: 10/22/17 09:34 Dose: 25 units Ondansetron HCl (Zofran Odt) 4 mg PO Q4H PRN PRN Reason: Nausea/Vomiting Oxycodone HCl (Oxycodone) 5 - 10 mg PO Q3H PRN PRN Reason: Pain Last Admin: 10/22/17 12:32 Dose: 10 mg Discontinued Medications Bupivacaine HCl/Epinephrine Bitart (Marcaine 0.25%/Epinephrine 1:200,000) 10 ml INJECT ONETIME ONE Stop: 10/15/17 08:01 Last Admin: 10/15/17 15:14 Dose: Not Given Cefazolin Sodium (Ancef) Confirm Administered Dose 2 gm .ROUTE .STK-MED ONE Stop: 10/15/17 11:54 Fentanyl (Sublimaze) Confirm Administered Dose 250 mcg .ROUTE .STK-MED ONE Stop: 10/15/17 11:54 Fentanyl (Sublimaze) 50 mcg IVPUSH .Q5MIN PRN PRN Reason: Pain Fentanyl (Sublimaze) Confirm Administered Dose 250 mcg .ROUTE .STK-MED ONE Stop: 10/20/17 15:20 Hydromorphone HCl (Dilaudid) Confirm Administered Dose 2 mg .ROUTE .STK-MED ONE Stop: 10/20/17 16:45 Cefazolin Sodium/Dextrose 2 gm (/ Premix) 50 mls @ 100 mls/hr IV ONETIME ONE Stop: 10/15/17 08:29 Last Admin: 10/15/17 15:14 Dose: Not Given Lactated Ringer's (Ringers, Lactated) 1,000 mls @ 125 mls/hr IV ASDIRECTED [facility] Last Admin: 10/20/17 11:37 Dose: 125 mls/hr Bupivacaine HCl/Epinephrine Bitart (Sensorc Mpf 0.25%-Epi 1:[id number]) Confirm Administered Dose 30 mls @ as directed .ROUTE .STK-MED ONE Stop: 10/15/17 07:25 Sodium Chloride (Normal Saline) Confirm Administered Dose 20 mls @ as directed .ROUTE .STK-MED ONE Stop: 10/15/17 11:54 Piperacillin Sod/Tazobactam (Sod 3.375 gm/ Sodium Chloride) 50 mls @ 100 mls/ hr IV Q6H [facility] Last Admin: 10/19/17 05:01 Dose: 100 mls/hr Clindamycin Phosphate 300 mg/ (Premix) 50 mls @ 100 mls/hr IV Q6H [facility] Last Admin: 10/18/17 15:08 Dose: 100 mls/hr Bupivacaine HCl/Epinephrine Bitart (Sensorc Mpf 0.25%-Epi 1:[id number]) Confirm Administered Dose 30 mls @ as directed .ROUTE .STK-MED ONE Stop: 10/20/17 15:55 Meropenem 1 gm/ Sodium (Chloride) 100 mls @ 100 mls/hr IV Q8H [facility] Last Admin: 10/21/17 11:07 Dose: Not Given Ibuprofen (Motrin) 800 mg PO Q6H PRN PRN Reason: Pain Last Admin: 10/17/17 00:55 Dose: 800 mg Insulin Aspart (Novolog) 7 unit SUBCUT TIDAC [facility] Last Admin: 10/17/17 06:57 Dose: 7 units Insulin Glargine (Lantus Solostar) 15 units SUBCUT DAILY [facility] Last Admin: 10/16/17 09:28 Dose: 15 units Insulin Glargine (Lantus Solostar) 17 units SUBCUT DAILY [facility] Last Admin: 10/17/17 08:34 Dose: 17 units Insulin Glargine (Lantus Solostar) 2 units SUBCUT ONETIME ONE Stop: 10/16/17 11:40 Last Admin: 10/16/17 12:35 Dose: 2 units Insulin Glargine (Lantus Solostar) 19 units SUBCUT DAILY [facility] Last Admin: 10/19/17 08:11 Dose: 19 units Insulin Glargine (Lantus Solostar) 20 units SUBCUT DAILY [facility] Last Admin: 10/21/17 08:22 Dose: 20 units Ketorolac Tromethamine (Toradol) Confirm Administered Dose 30 mg .ROUTE .STK- MED ONE Stop: 10/15/17 11:54 Lidocaine (Xylocaine-Mpf 2%) Confirm Administered Dose 5 ml .ROUTE .STK-MED ONE Stop: 10/15/17 11:51 Lidocaine (Xylocaine-Mpf 2%) Confirm Administered Dose 5 ml .ROUTE .STK-MED ONE Stop: 10/20/17 15:20 Midazolam HCl (Versed 1 Mg/Ml) Confirm Administered Dose 2 mg .ROUTE .STK-MED ONE Stop: 10/15/17 11:53 Midazolam HCl (Versed 1 Mg/Ml) Confirm Administered Dose 2 mg .ROUTE .STK-MED ONE Stop: 10/20/17 15:20 Morphine Sulfate (Morphine) 2 mg IVPUSH Q2H PRN PRN Reason: Pain Last Admin: 10/15/17 22:58 Dose: 2 mg Morphine Sulfate (Morphine) 2 - 4 mg IVPUSH Q2H PRN PRN Reason: Pain Last Admin: 10/20/17 19:31 Dose: 4 mg Ondansetron HCl (Zofran) Confirm Administered Dose 4 mg .ROUTE .STK-MED ONE Stop: 10/15/17 11:54 Ondansetron HCl (Zofran) Confirm Administered Dose 4 mg .ROUTE .STK-MED ONE Stop: 10/20/17 15:19 Oxycodone HCl (Oxycodone) 5 mg PO Q3H PRN PRN Reason: Pain Last Admin: 10/15/17 23:43 Dose: 5 mg Propofol (Diprivan 20 Ml) Confirm Administered Dose 200 mg .ROUTE .STK-MED ONE Stop: 10/15/17 11:53 Propofol (Diprivan 20 Ml) Confirm Administered Dose 200 mg .ROUTE .STK-MED ONE Stop: 10/15/17 14:17 Propofol (Diprivan 20 Ml) Confirm Administered Dose 200 mg .ROUTE .STK-MED ONE Stop: 10/20/17 15:20 Propofol (Diprivan 20 Ml) Confirm Administered Dose 200 mg .ROUTE .STK-MED ONE Stop: 10/20/17 16:35 Propofol (Diprivan 20 Ml) Confirm Administered Dose 200 mg .ROUTE .STK-MED ONE Stop: 10/20/17 17:00 - My Orders Last 24 Hours: My Active Orders 10/22/17 09:00 Insulin Glarg,Human.Rec.Analog [LantUS Solostar] 25 units SUBCUT DAILY 10/23/17 05:11 CBC W/O DIFF,HEMOGRAM [HEME] AM 10/24/17 05:11 CBC W/O DIFF,HEMOGRAM [HEME] AM 10/25/17 05:11 CBC W/O DIFF,HEMOGRAM [HEME] AM 10/26/17 05:11 CBC W/O DIFF,HEMOGRAM [HEME] AM 10/27/17 05:11 CBC W/O DIFF,HEMOGRAM [HEME] AM 10/28/17 05:11 CBC W/O DIFF,HEMOGRAM [HEME] AM 10/29/17 05:11 CBC W/O DIFF,HEMOGRAM [HEME] AM - Assessment Assessment:: POD 2/5 I and D for tenosynovitis. Improvements marginal still needing IV therapy and pain control. - Plan Plan:: 47 yo male with history of Uncontrolled NIDDM and non-adherence admitted for left hand tenosynovitis. Flexor Tenosynovitis s/p I&D day #2/6 Afebrile. No systemic symptoms kristen infection. LAgging hand clinical picture and no other areas of concern aside from previous left foot injury. Discussed with Dr Shane. - Previously on Bactrim PO outpatient initially, Vancomycin and zosyn IV outpatient, Zosyn and Clindamycin from surgery until Yesterday evening. Changed to daptomycin and zosyn yesterday and now will transition to penicillin given strep pansensitivites. Discussed with ID in [place] - Dr Mendez. Continue meropenem for Penicillin, Dapto and Merepenem full spectrum coverage. - Blood sugars with improved control via hospitalist team. - Soaks begin for comfort and cleansing. - Xray of left foot given deformity but unlikely the source of any additional concerns. Dr Shaw aware. - Recheck am labs for WBC changes. - Dr Mira Shane will be covering for the weekend when I am out.
[2017-10-22] MEDS: DAPTOMYCIN IV SCH (18:49)
[2017-10-22] MEDS: SODIUM CHLORIDE 0.9% IV SCH (18:49)
--- NOTE | 2017-10-22 22:09 | PCM.CONSN ---
- General Info Date of Service: 10/22/17 Admission Dx/Problem (Free Text): Patient has no active complains , afebrile , blood sugars improved today, seen by attending today . - Review of Systems General: Reports: No Symptoms HEENT: Reports: No Symptoms Pulmonary: Reports: No Symptoms Cardiovascular: Reports: No Symptoms Gastrointestinal: Reports: No Symptoms Genitourinary: Reports: No Symptoms Musculoskeletal: Reports: Hand Pain Skin: Reports: No Symptoms Neurological: Reports: No Symptoms Psychiatric: Reports: No Symptoms - Patient Data Vitals - Most Recent: Last Vital Signs Temp 98.5 F 10/22/17 16:00 Pulse 95 10/22/17 16:00 Resp 18 10/22/17 16:00 BP 155/97 H 10/22/17 16:00 Pulse Ox 94 L 10/22/17 16:00 Weight - Most Recent: 209 lb 7.026 oz I&O - Last 24 Hours: Intake & Output 10/22/17 10/22/17 10/22/17 06:59 14:59 22:59 Intake Total 2333 300 3189 Output Total 525 1275 Balance 6971 199 6661 Lab Results Last 24 Hours: Laboratory Results - last 24 hr 10/22/17 10/22/17 10/22/17 Range/Units 05:05 05:05 05:58 ESR 113 H (0-14) mm/hr Sodium 130 L (136-148) mmol/L Potassium 4.0 (3.5-5.1) mmol/L Chloride 98 (98-107) mmol/L Carbon Dioxide 25.7 (21.0-32.0) mmol/L BUN 21 H (7.0-18.0) mg/dL Creatinine 1.6 H (0.8-1.3) mg/dL Est Cr Clr Drug Dosing 58.93 mL/min Estimated GFR (MDRD) 46.6 ml/min Glucose 147 H (74-106) mg/dL POC Glucose 137 H (60-110) mg/dL Calcium 8.4 L (8.5-10.1) mg/dL 10/22/17 10/22/17 10/22/17 Range/Units 09:21 11:41 16:00 ESR (0-14) mm/hr Sodium (136-148) mmol/L Potassium (3.5-5.1) mmol/L Chloride (98-107) mmol/L Carbon Dioxide (21.0-32.0) mmol/L BUN (7.0-18.0) mg/dL Creatinine (0.8-1.3) mg/dL Est Cr Clr Drug Dosing mL/min Estimated GFR (MDRD) ml/min Glucose (74-106) mg/dL POC Glucose 155 H 218 H 179 H (60-110) mg/dL Calcium (8.5-10.1) mg/dL Alejo Results Last 24 Hours: Microbiology 10/20/17 17:00 Gram Stain - Final Bone / Bone Biopsy - Hand, Left Wound Culture - Final No Growth 10/20/17 16:44 Gram Stain - Final Hand, Left Wound Culture - Final No Growth Anaerobic Culture - Final NO ANAEROBES ISOLATED 10/18/17 22:22 Aerobic Blood Culture - Preliminary Blood - Venous - Lab Draw NO GROWTH AFTER 3 DAYS Anaerobic Blood Culture - Preliminary NO GROWTH AFTER 3 DAYS 10/18/17 22:11 Aerobic Blood Culture - Preliminary Blood - Venous NO GROWTH AFTER 3 DAYS Anaerobic Blood Culture - Preliminary NO GROWTH AFTER 3 DAYS Med Orders - Current: Current Medications Acetaminophen (Tylenol) 650 mg PO Q6H PRN PRN Reason: Fever Last Admin: 10/18/17 21:36 Dose: 650 mg Diphenhydramine HCl (Benadryl) 25 mg PO Q6H PRN PRN Reason: Itching Last Admin: 10/18/17 01:02 Dose: 25 mg Hydromorphone HCl (Dilaudid) 1 mg IVPUSH Q2H PRN PRN Reason: Pain (moderate 4-6) Last Admin: 10/22/17 15:01 Dose: 1 mg Daptomycin 900 mg/ Sodium (Chloride) 18 mls @ 540 mls/hr IV Q24H NOE Last Admin: 10/22/17 18:49 Dose: 540 mls/hr Penicillin G Potassium 2.5 (millunits/ Dextrose/Water) 100 mls @ 200 mls/hr IV Q4H [facility] Last Admin: 10/22/17 20:27 Dose: 200 mls/hr Sodium Chloride (Normal Saline) 1,000 mls @ 100 mls/hr IV ASDIRECTED [facility] Last Admin: 10/22/17 17:38 Dose: 100 mls/hr Meropenem 1 gm/ Sodium (Chloride) 100 mls @ 100 mls/hr IV Q8H [facility] Last Admin: 10/22/17 17:41 Dose: 100 mls/hr Insulin Aspart (Novolog) 9 unit SUBCUT TIDAC [facility] Last Admin: 10/22/17 17:43 Dose: 9 units Insulin Glargine (Lantus Solostar) 25 units SUBCUT DAILY [facility] Last Admin: 10/22/17 09:34 Dose: 25 units Ondansetron HCl (Zofran Odt) 4 mg PO Q4H PRN PRN Reason: Nausea/Vomiting Oxycodone HCl (Oxycodone) 5 - 10 mg PO Q3H PRN PRN Reason: Pain Last Admin: 10/22/17 20:35 Dose: 10 mg Discontinued Medications Bupivacaine HCl/Epinephrine Bitart (Marcaine 0.25%/Epinephrine 1:200,000) 10 ml INJECT ONETIME ONE Stop: 10/15/17 08:01 Last Admin: 10/15/17 15:14 Dose: Not Given Cefazolin Sodium (Ancef) Confirm Administered Dose 2 gm .ROUTE .STK-MED ONE Stop: 10/15/17 11:54 Fentanyl (Sublimaze) Confirm Administered Dose 250 mcg .ROUTE .STK-MED ONE Stop: 10/15/17 11:54 Fentanyl (Sublimaze) 50 mcg IVPUSH .Q5MIN PRN PRN Reason: Pain Fentanyl (Sublimaze) Confirm Administered Dose 250 mcg .ROUTE .STK-MED ONE Stop: 10/20/17 15:20 Hydromorphone HCl (Dilaudid) Confirm Administered Dose 2 mg .ROUTE .STK-MED ONE Stop: 10/20/17 16:45 Cefazolin Sodium/Dextrose 2 gm (/ Premix) 50 mls @ 100 mls/hr IV ONETIME ONE Stop: 10/15/17 08:29 Last Admin: 10/15/17 15:14 Dose: Not Given Lactated Ringer's (Ringers, Lactated) 1,000 mls @ 125 mls/hr IV ASDIRECTED [facility] Last Admin: 10/20/17 11:37 Dose: 125 mls/hr Bupivacaine HCl/Epinephrine Bitart (Sensorc Mpf 0.25%-Epi 1:[id number]) Confirm Administered Dose 30 mls @ as directed .ROUTE .STK-MED ONE Stop: 10/15/17 07:25 Sodium Chloride (Normal Saline) Confirm Administered Dose 20 mls @ as directed .ROUTE .STK-MED ONE Stop: 10/15/17 11:54 Piperacillin Sod/Tazobactam (Sod 3.375 gm/ Sodium Chloride) 50 mls @ 100 mls/ hr IV Q6H [facility] Last Admin: 10/19/17 05:01 Dose: 100 mls/hr Clindamycin Phosphate 300 mg/ (Premix) 50 mls @ 100 mls/hr IV Q6H [facility] Last Admin: 10/18/17 15:08 Dose: 100 mls/hr Bupivacaine HCl/Epinephrine Bitart (Sensorc Mpf 0.25%-Epi 1:[id number]) Confirm Administered Dose 30 mls @ as directed .ROUTE .STK-MED ONE Stop: 10/20/17 15:55 Meropenem 1 gm/ Sodium (Chloride) 100 mls @ 100 mls/hr IV Q8H [facility] Last Admin: 10/21/17 11:07 Dose: Not Given Ibuprofen (Motrin) 800 mg PO Q6H PRN PRN Reason: Pain Last Admin: 10/17/17 00:55 Dose: 800 mg Insulin Aspart (Novolog) 7 unit SUBCUT TIDAC [facility] Last Admin: 10/17/17 06:57 Dose: 7 units Insulin Glargine (Lantus Solostar) 15 units SUBCUT DAILY [facility] Last Admin: 10/16/17 09:28 Dose: 15 units Insulin Glargine (Lantus Solostar) 17 units SUBCUT DAILY [facility] Last Admin: 10/17/17 08:34 Dose: 17 units Insulin Glargine (Lantus Solostar) 2 units SUBCUT ONETIME ONE Stop: 10/16/17 11:40 Last Admin: 10/16/17 12:35 Dose: 2 units Insulin Glargine (Lantus Solostar) 19 units SUBCUT DAILY [facility] Last Admin: 10/19/17 08:11 Dose: 19 units Insulin Glargine (Lantus Solostar) 20 units SUBCUT DAILY [facility] Last Admin: 10/21/17 08:22 Dose: 20 units Ketorolac Tromethamine (Toradol) Confirm Administered Dose 30 mg .ROUTE .STK- MED ONE Stop: 10/15/17 11:54 Lidocaine (Xylocaine-Mpf 2%) Confirm Administered Dose 5 ml .ROUTE .STK-MED ONE Stop: 10/15/17 11:51 Lidocaine (Xylocaine-Mpf 2%) Confirm Administered Dose 5 ml .ROUTE .STK-MED ONE Stop: 10/20/17 15:20 Midazolam HCl (Versed 1 Mg/Ml) Confirm Administered Dose 2 mg .ROUTE .STK-MED ONE Stop: 10/15/17 11:53 Midazolam HCl (Versed 1 Mg/Ml) Confirm Administered Dose 2 mg .ROUTE .STK-MED ONE Stop: 10/20/17 15:20 Morphine Sulfate (Morphine) 2 mg IVPUSH Q2H PRN PRN Reason: Pain Last Admin: 10/15/17 22:58 Dose: 2 mg Morphine Sulfate (Morphine) 2 - 4 mg IVPUSH Q2H PRN PRN Reason: Pain Last Admin: 10/20/17 19:31 Dose: 4 mg Ondansetron HCl (Zofran) Confirm Administered Dose 4 mg .ROUTE .STK-MED ONE Stop: 10/15/17 11:54 Ondansetron HCl (Zofran) Confirm Administered Dose 4 mg .ROUTE .STK-MED ONE Stop: 10/20/17 15:19 Oxycodone HCl (Oxycodone) 5 mg PO Q3H PRN PRN Reason: Pain Last Admin: 10/15/17 23:43 Dose: 5 mg Propofol (Diprivan 20 Ml) Confirm Administered Dose 200 mg .ROUTE .STK-MED ONE Stop: 10/15/17 11:53 Propofol (Diprivan 20 Ml) Confirm Administered Dose 200 mg .ROUTE .STK-MED ONE Stop: 10/15/17 14:17 Propofol (Diprivan 20 Ml) Confirm Administered Dose 200 mg .ROUTE .STK-MED ONE Stop: 10/20/17 15:20 Propofol (Diprivan 20 Ml) Confirm Administered Dose 200 mg .ROUTE .STK-MED ONE Stop: 10/20/17 16:35 Propofol (Diprivan 20 Ml) Confirm Administered Dose 200 mg .ROUTE .STK-MED ONE Stop: 10/20/17 17:00 - Exam General: Alert, Oriented, Cooperative, No Acute Distress HEENT: Pupils Equal, Pupils Reactive Neck: Supple, Trachea Midline, No JVD, No Thyromegaly Lungs: Clear to Auscultation, Normal Respiratory Effort Cardiovascular: Regular Rate, Regular Rhythm, No Murmurs GI/Abdominal Exam: Normal Bowel Sounds, Soft, Non-Tender, No Organomegaly, No Distention, No Abnormal Bruit Extremities: Normal Inspection Skin: Warm, Dry Wound/Incisions: Dressing Dry and Intact Neurological: No New Focal Deficit Psy/Mental Status: Alert, Normal Affect, Normal Mood Consult PN Assessment/Plan Procedures: Procedures AMPUTATION OF FINGER/THUMB (09/22/17) ELECTROCARDIOGRAM TRACING (09/22/17) EMERGENCY DEPT VISIT (06/24/17) GLUCOSE BLOOD TEST (09/22/17) IMMUNIZATION ADMIN (06/24/17) TDAP VACCINE 7 YRS/> IM (06/24/17) TISSUE EXAM BY PATHOLOGIST (09/22/17) (1) Tenosynovitis of finger and hand SNOMED Code(s): 951490597 Code(s): M65.9 - SYNOVITIS AND TENOSYNOVITIS, UNSPECIFIED Priority: High Current Visit: Yes (2) Frostbite SNOMED Code(s): 137134917 Code(s): T33.90XA - SUPERFICIAL FROSTBITE OF UNSPECIFIED SITES, INIT ENCNTR Priority: High Current Visit: No Qualifiers: Encounter type: sequela Qualified Code(s): T33.90XS - Superficial frostbite of unspecified sites, sequela (3) Diabetes mellitus SNOMED Code(s): 77920858 Code(s): E11.9 - TYPE 2 DIABETES MELLITUS WITHOUT COMPLICATIONS Current Visit: Yes Qualifiers: Diabetes mellitus type: type 2 Problem List Initiated/Reviewed/Updated: Yes My Orders Last 24 Hours: My Active Orders 10/22/17 09:00 Insulin Glarg,Human.Rec.Analog [LantUS Solostar] 25 units SUBCUT DAILY 10/23/17 05:11 CBC W/O DIFF,HEMOGRAM [HEME] AM 10/24/17 05:11 CBC W/O DIFF,HEMOGRAM [HEME] AM 10/25/17 05:11 CBC W/O DIFF,HEMOGRAM [HEME] AM 10/26/17 05:11 CBC W/O DIFF,HEMOGRAM [HEME] AM 10/27/17 05:11 CBC W/O DIFF,HEMOGRAM [HEME] AM 10/28/17 05:11 CBC W/O DIFF,HEMOGRAM [HEME] AM 10/29/17 05:11 CBC W/O DIFF,HEMOGRAM [HEME] AM Plan: assessment and plan tenosinovitis of the right hand - antibiotics as per surgery . Surgery discussed antibiotic treatment with ID at [facility].F/up surgery, F/up WBC 2) DM improved control , monitor BS , insulin Lantus glargine 25 units in am, insulin aspart 9 units with meals , insulin on sliding scale coverage. 3) DVT prof- heparin sq
[2017-10-23] MEDS: Meropenem 1 GM in Sodium Chloride 0.9% 100 ML IV SCH ×2 (00:18→09:58)
[2017-10-23] MEDS: Penicillin G Potassium 2.5 MILLUNITS in Dextrose 5% in Water 100 ML IV SCH ×6 (03:43→12:34)
[2017-10-23] MEDS: Sodium Chloride 0.9% 1,000 ML IV SCH (07:14)
[2017-10-23] MEDS: oxyCODONE 5 MG Tab PO PRN ×3 (07:18→13:49)
[2017-10-23] MEDS ORDERED: Insulin Aspart 100 Units/ML 3 ML Pen SUBCUT SCH (07:30)
[2017-10-23] MEDS: Insulin Aspart 100 Units/ML 3 ML Pen SUBCUT SCH ×2 (07:56→11:57)
[2017-10-23] MEDS: Insulin Glargine,Human Rec. Analog 100 Units/ML 3 ML Pen SUBCUT SCH (09:59)
--- NOTE | 2017-10-23 11:48 | PCM.SURGPN ---
- General Info Date of Service: 10/23/17 POD#: 3 - Review of Systems General: Reports: No Symptoms. Denies: Fever, Chills, Night Sweats HEENT: Reports: No Symptoms Pulmonary: Reports: No Symptoms Cardiovascular: Reports: No Symptoms Gastrointestinal: Reports: No Symptoms Genitourinary: Reports: No Symptoms Musculoskeletal: Reports: Hand Pain Neurological: Reports: No Symptoms Psychiatric: Reports: No Symptoms Systems Review Comment:: Patient states he is having more pain in left hand. Continues to do soaks daily and currently soaking. No drainage noted from wound. C/o increased pain with wrist ROM also. - Patient Data Vitals - Most Recent: Last Vital Signs Temp 98 F 10/23/17 08:00 Pulse 96 10/23/17 08:00 Resp 16 10/23/17 08:00 BP 137/89 10/23/17 08:00 Pulse Ox 94 L 10/23/17 08:00 Weight - Most Recent: 95 kg I&O - Last 24 Hours: Intake & Output 10/22/17 10/23/17 10/23/17 22:59 06:59 14:59 Intake Total 3189 1398 Output Total 1275 1700 Balance 1914 -302 Lab Results Last 24 Hrs: Laboratory Results - last 24 hr 10/22/17 10/22/17 10/23/17 Range/Units 11:41 16:00 06:05 WBC (4.0-11.0) K/uL RBC (4.50-5.90) M/uL Hgb (13.0-17.0) g/dL Hct (38.0-50.0) % MCV (80.0-98.0) fL MCH (27.0-32.0) pg MCHC (31.0-37.0) g/dL RDW Std Deviation (28.0-62.0) fl RDW Coeff of Juan Alberto (11.0-15.0) % Plt Count (150-400) K/uL MPV (7.40-12.00) fL Nucleated RBC % /100WBC Nucleated RBCs # K/uL ESR (0-14) mm/hr Sodium 133 L (136-148) mmol/L Potassium 4.0 (3.5-5.1) mmol/L Chloride 101 (98-107) mmol/L Carbon Dioxide 25.1 (21.0-32.0) mmol/L BUN 18 (7.0-18.0) mg/dL Creatinine 1.5 H (0.8-1.3) mg/dL Est Cr Clr Drug Dosing 62.86 mL/min Estimated GFR (MDRD) 50.2 ml/min Glucose 125 H (74-106) mg/dL POC Glucose 218 H 179 H (60-110) mg/dL Calcium 8.2 L (8.5-10.1) mg/dL 10/23/17 10/23/17 Range/Units 06:05 07:02 WBC 21.02 H (4.0-11.0) K/uL RBC 3.97 L (4.50-5.90) M/uL Hgb 11.0 L (13.0-17.0) g/dL Hct 33.4 L (38.0-50.0) % MCV 84.1 (80.0-98.0) fL MCH 27.7 (27.0-32.0) pg MCHC 32.9 (31.0-37.0) g/dL RDW Std Deviation 37.9 (28.0-62.0) fl RDW Coeff of Juan Alberto 12 (11.0-15.0) % Plt Count 323 (150-400) K/uL MPV 9.90 (7.40-12.00) fL Nucleated RBC % 0.0 /100WBC Nucleated RBCs # 0 K/uL ESR > 140 H (0-14) mm/hr Sodium (136-148) mmol/L Potassium (3.5-5.1) mmol/L Chloride (98-107) mmol/L Carbon Dioxide (21.0-32.0) mmol/L BUN (7.0-18.0) mg/dL Creatinine (0.8-1.3) mg/dL Est Cr Clr Drug Dosing mL/min Estimated GFR (MDRD) ml/min Glucose (74-106) mg/dL POC Glucose 119 H (60-110) mg/dL Calcium (8.5-10.1) mg/dL Alejo Results Last 24 Hrs: Microbiology 10/18/17 22:22 Aerobic Blood Culture - Preliminary Blood - Venous - Lab Draw NO GROWTH AFTER 4 DAYS Anaerobic Blood Culture - Preliminary NO GROWTH AFTER 4 DAYS 10/18/17 22:11 Aerobic Blood Culture - Preliminary Blood - Venous NO GROWTH AFTER 4 DAYS Anaerobic Blood Culture - Preliminary NO GROWTH AFTER 4 DAYS 10/20/17 17:00 Gram Stain - Final Bone / Bone Biopsy - Hand, Left Wound Culture - Final No Growth 10/20/17 16:44 Gram Stain - Final Hand, Left Wound Culture - Final No Growth Anaerobic Culture - Final NO ANAEROBES ISOLATED Med Orders - Current: Current Medications Acetaminophen (Tylenol) 650 mg PO Q6H PRN PRN Reason: Fever Last Admin: 10/18/17 21:36 Dose: 650 mg Diphenhydramine HCl (Benadryl) 25 mg PO Q6H PRN PRN Reason: Itching Last Admin: 10/18/17 01:02 Dose: 25 mg Hydromorphone HCl (Dilaudid) 1 mg IVPUSH Q2H PRN PRN Reason: Pain (moderate 4-6) Last Admin: 10/22/17 23:26 Dose: 1 mg Daptomycin 900 mg/ Sodium (Chloride) 18 mls @ 540 mls/hr IV Q24H [facility] Last Admin: 10/22/17 18:49 Dose: 540 mls/hr Penicillin G Potassium 2.5 (millunits/ Dextrose/Water) 100 mls @ 200 mls/hr IV Q4H [facility] Last Admin: 10/23/17 08:48 Dose: 200 mls/hr Sodium Chloride (Normal Saline) 1,000 mls @ 100 mls/hr IV ASDIRECTED [facility] Last Admin: 10/23/17 07:14 Dose: 100 mls/hr Meropenem 1 gm/ Sodium (Chloride) 100 mls @ 100 mls/hr IV Q8H [facility] Last Admin: 10/23/17 09:58 Dose: 100 mls/hr Insulin Aspart (Novolog) 9 unit SUBCUT TIDAC [facility] Last Admin: 10/23/17 07:56 Dose: Not Given Insulin Aspart (Novolog) 0 unit SUBCUT ACBREAKFASTANDBED [facility]; Protocol Last Admin: 10/23/17 07:57 Dose: Not Given Insulin Glargine (Lantus Solostar) 25 units SUBCUT DAILY [facility] Last Admin: 10/23/17 09:59 Dose: 25 units Ondansetron HCl (Zofran Odt) 4 mg PO Q4H PRN PRN Reason: Nausea/Vomiting Oxycodone HCl (Oxycodone) 5 - 10 mg PO Q3H PRN PRN Reason: Pain Last Admin: 10/23/17 10:18 Dose: 10 mg Discontinued Medications Bupivacaine HCl/Epinephrine Bitart (Marcaine 0.25%/Epinephrine 1:200,000) 10 ml INJECT ONETIME ONE Stop: 10/15/17 08:01 Last Admin: 10/15/17 15:14 Dose: Not Given Cefazolin Sodium (Ancef) Confirm Administered Dose 2 gm .ROUTE .STK-MED ONE Stop: 10/15/17 11:54 Fentanyl (Sublimaze) Confirm Administered Dose 250 mcg .ROUTE .STK-MED ONE Stop: 10/15/17 11:54 Fentanyl (Sublimaze) 50 mcg IVPUSH .Q5MIN PRN PRN Reason: Pain Fentanyl (Sublimaze) Confirm Administered Dose 250 mcg .ROUTE .STK-MED ONE Stop: 10/20/17 15:20 Hydromorphone HCl (Dilaudid) Confirm Administered Dose 2 mg .ROUTE .STK-MED ONE Stop: 10/20/17 16:45 Cefazolin Sodium/Dextrose 2 gm (/ Premix) 50 mls @ 100 mls/hr IV ONETIME ONE Stop: 10/15/17 08:29 Last Admin: 10/15/17 15:14 Dose: Not Given Lactated Ringer's (Ringers, Lactated) 1,000 mls @ 125 mls/hr IV ASDIRECTED [facility] Last Admin: 10/20/17 11:37 Dose: 125 mls/hr Bupivacaine HCl/Epinephrine Bitart (Sensorc Mpf 0.25%-Epi 1:[id number]) Confirm Administered Dose 30 mls @ as directed .ROUTE .STK-MED ONE Stop: 10/15/17 07:25 Sodium Chloride (Normal Saline) Confirm Administered Dose 20 mls @ as directed .ROUTE .STK-MED ONE Stop: 10/15/17 11:54 Piperacillin Sod/Tazobactam (Sod 3.375 gm/ Sodium Chloride) 50 mls @ 100 mls/ hr IV Q6H [facility] Last Admin: 10/19/17 05:01 Dose: 100 mls/hr Clindamycin Phosphate 300 mg/ (Premix) 50 mls @ 100 mls/hr IV Q6H [facility] Last Admin: 10/18/17 15:08 Dose: 100 mls/hr Bupivacaine HCl/Epinephrine Bitart (Sensorc Mpf 0.25%-Epi 1:[id number]) Confirm Administered Dose 30 mls @ as directed .ROUTE .STK-MED ONE Stop: 10/20/17 15:55 Meropenem 1 gm/ Sodium (Chloride) 100 mls @ 100 mls/hr IV Q8H [facility] Last Admin: 10/21/17 11:07 Dose: Not Given Ibuprofen (Motrin) 800 mg PO Q6H PRN PRN Reason: Pain Last Admin: 10/17/17 00:55 Dose: 800 mg Insulin Aspart (Novolog) 7 unit SUBCUT TIDAC [facility] Last Admin: 10/17/17 06:57 Dose: 7 units Insulin Glargine (Lantus Solostar) 15 units SUBCUT DAILY [facility] Last Admin: 10/16/17 09:28 Dose: 15 units Insulin Glargine (Lantus Solostar) 17 units SUBCUT DAILY [facility] Last Admin: 10/17/17 08:34 Dose: 17 units Insulin Glargine (Lantus Solostar) 2 units SUBCUT ONETIME ONE Stop: 10/16/17 11:40 Last Admin: 10/16/17 12:35 Dose: 2 units Insulin Glargine (Lantus Solostar) 19 units SUBCUT DAILY [facility] Last Admin: 10/19/17 08:11 Dose: 19 units Insulin Glargine (Lantus Solostar) 20 units SUBCUT DAILY [facility] Last Admin: 10/21/17 08:22 Dose: 20 units Ketorolac Tromethamine (Toradol) Confirm Administered Dose 30 mg .ROUTE .STK- MED ONE Stop: 10/15/17 11:54 Lidocaine (Xylocaine-Mpf 2%) Confirm Administered Dose 5 ml .ROUTE .STK-MED ONE Stop: 10/15/17 11:51 Lidocaine (Xylocaine-Mpf 2%) Confirm Administered Dose 5 ml .ROUTE .STK-MED ONE Stop: 10/20/17 15:20 Midazolam HCl (Versed 1 Mg/Ml) Confirm Administered Dose 2 mg .ROUTE .STK-MED ONE Stop: 10/15/17 11:53 Midazolam HCl (Versed 1 Mg/Ml) Confirm Administered Dose 2 mg .ROUTE .STK-MED ONE Stop: 10/20/17 15:20 Morphine Sulfate (Morphine) 2 mg IVPUSH Q2H PRN PRN Reason: Pain Last Admin: 10/15/17 22:58 Dose: 2 mg Morphine Sulfate (Morphine) 2 - 4 mg IVPUSH Q2H PRN PRN Reason: Pain Last Admin: 10/20/17 19:31 Dose: 4 mg Ondansetron HCl (Zofran) Confirm Administered Dose 4 mg .ROUTE .STK-MED ONE Stop: 10/15/17 11:54 Ondansetron HCl (Zofran) Confirm Administered Dose 4 mg .ROUTE .STK-MED ONE Stop: 10/20/17 15:19 Oxycodone HCl (Oxycodone) 5 mg PO Q3H PRN PRN Reason: Pain Last Admin: 10/15/17 23:43 Dose: 5 mg Propofol (Diprivan 20 Ml) Confirm Administered Dose 200 mg .ROUTE .STK-MED ONE Stop: 10/15/17 11:53 Propofol (Diprivan 20 Ml) Confirm Administered Dose 200 mg .ROUTE .STK-MED ONE Stop: 10/15/17 14:17 Propofol (Diprivan 20 Ml) Confirm Administered Dose 200 mg .ROUTE .STK-MED ONE Stop: 10/20/17 15:20 Propofol (Diprivan 20 Ml) Confirm Administered Dose 200 mg .ROUTE .STK-MED ONE Stop: 10/20/17 16:35 Propofol (Diprivan 20 Ml) Confirm Administered Dose 200 mg .ROUTE .STK-MED ONE Stop: 10/20/17 17:00 - Exam Wound/Incisions: No Drainage, Erythema General: Alert, Oriented HEENT: Pupils Equal Neck: Supple Lungs: Normal Respiratory Effort Cardiovascular: Regular Rate Neurological: No New Focal Deficit Psy/Mental Status: Alert, Normal Affect, Normal Mood Physical Findings Comment:: 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 Volar incision intact without drainage. Moderate erythema throughout hand. Swelling diffusely throughout hand extending into volar forearm. Pain with palpation of thenar and hypothenar eminance. No fluctuation noted. Pain with finger and wrist ROM, both active and passive. Unable to make a fist. Sensation intact throughout hand. Radial pulse 2 +. - Problem List & Annotations (1) Tenosynovitis of finger and hand SNOMED Code(s): 220079070 Code(s): M65.9 - SYNOVITIS AND TENOSYNOVITIS, UNSPECIFIED Status: Acute Priority: High Current Visit: Yes - Problem List Review Problem List Initiated/Reviewed/Updated: Yes - My Orders Last 24 Hours: Active Orders 24 hr Category Date Time Status Accu Check [Blood Glucose Check, Bedside] [RC] Care 10/22/17 22:17 Active WITHMEALSANDBED BMP [BASIC METABOLIC PANEL,BMP] [CHEM] AM Lab 10/24/17 05:11 Ordered CBC W/O DIFF,HEMOGRAM [HEME] AM Lab 10/24/17 05:11 Ordered CBC W/O DIFF,HEMOGRAM [HEME] AM Lab 10/25/17 05:11 Ordered CBC W/O DIFF,HEMOGRAM [HEME] AM Lab 10/26/17 05:11 Ordered CBC W/O DIFF,HEMOGRAM [HEME] AM Lab 10/27/17 05:11 Ordered CBC W/O DIFF,HEMOGRAM [HEME] AM Lab 10/28/17 05:11 Ordered CBC W/O DIFF,HEMOGRAM [HEME] AM Lab 10/29/17 05:11 Ordered ESR [SEDIMENTATION RATE AUTO] [HEME] AM Lab 10/24/17 05:11 Ordered Insulin Aspart [NovoLOG] Med 10/23/17 07:30 Active See Protocol SUBCUT ACBREAKFASTANDBED Medication Orders Acetaminophen (Tylenol) 650 mg PO Q6H PRN PRN Reason: Fever Last Admin: 10/18/17 21:36 Dose: 650 mg Admin: 10/16/17 00:04 Dose: 650 mg Diphenhydramine HCl (Benadryl) 25 mg PO Q6H PRN PRN Reason: Itching Last Admin: 10/18/17 01:02 Dose: 25 mg Admin: 10/15/17 23:01 Dose: 25 mg Hydromorphone HCl (Dilaudid) 1 mg IVPUSH Q2H PRN PRN Reason: Pain (moderate 4-6) Last Admin: 10/22/17 23:26 Dose: 1 mg Admin: 10/22/17 15:01 Dose: 1 mg Admin: 10/20/17 21:54 Dose: 1 mg Daptomycin 900 mg/ Sodium (Chloride) 18 mls @ 540 mls/hr IV Q24H [facility] Last Admin: 10/22/17 18:49 Dose: 540 mls/hr Infusion: 10/21/17 18:05 Dose: 540 mls/hr Admin: 10/21/17 18:03 Dose: 540 mls/hr Infusion: 10/20/17 19:33 Dose: 540 mls/hr Admin: 10/20/17 19:31 Dose: 540 mls/hr Infusion: 10/19/17 18:10 Dose: 540 mls/hr Admin: 10/19/17 18:08 Dose: 540 mls/hr Infusion: 10/18/17 18:31 Dose: 540 mls/hr Admin: 10/18/17 18:29 Dose: 540 mls/hr Penicillin G Potassium 2.5 (millunits/ Dextrose/Water) 100 mls @ 200 mls/hr IV Q4H [facility] Last Admin: 10/23/17 08:48 Dose: 200 mls/hr Infusion: 10/23/17 04:13 Dose: 200 mls/hr Admin: 10/23/17 03:43 Dose: 200 mls/hr Infusion: 10/23/17 00:00 Dose: 200 mls/hr Admin: 10/22/17 23:30 Dose: 200 mls/hr Infusion: 10/22/17 20:57 Dose: 200 mls/hr Admin: 10/22/17 20:27 Dose: 200 mls/hr Infusion: 10/22/17 15:34 Dose: 200 mls/hr Admin: 10/22/17 15:04 Dose: 200 mls/hr Infusion: 10/22/17 12:57 Dose: 200 mls/hr Admin: 10/22/17 12:27 Dose: 200 mls/hr Infusion: 10/22/17 09:43 Dose: 200 mls/hr Admin: 10/22/17 09:13 Dose: 200 mls/hr Infusion: 10/22/17 04:33 Dose: 200 mls/hr Admin: 10/22/17 04:03 Dose: 200 mls/hr Infusion: 10/22/17 00:28 Dose: 200 mls/hr Admin: 10/21/17 23:58 Dose: 200 mls/hr Infusion: 10/21/17 20:28 Dose: 200 mls/hr Admin: 10/21/17 19:58 Dose: 200 mls/hr Infusion: 10/21/17 15:48 Dose: 200 mls/hr Admin: 10/21/17 15:18 Dose: 200 mls/hr Infusion: 10/21/17 13:06 Dose: 200 mls/hr Admin: 10/21/17 12:36 Dose: 200 mls/hr Infusion: 10/21/17 08:48 Dose: 200 mls/hr Admin: 10/21/17 08:18 Dose: 200 mls/hr Infusion: 10/21/17 04:16 Dose: 200 mls/hr Admin: 10/21/17 03:46 Dose: 200 mls/hr Infusion: 10/21/17 00:02 Dose: 200 mls/hr Admin: 10/20/17 23:32 Dose: 200 mls/hr Infusion: 10/20/17 21:18 Dose: 200 mls/hr Admin: 10/20/17 20:48 Dose: 200 mls/hr Infusion: 10/20/17 16:05 Dose: 200 mls/hr Admin: 10/20/17 15:35 Dose: 200 mls/hr Infusion: 10/20/17 12:07 Dose: 200 mls/hr Admin: 10/20/17 11:37 Dose: 200 mls/hr Infusion: 10/20/17 09:22 Dose: 200 mls/hr Admin: 10/20/17 08:52 Dose: 200 mls/hr Infusion: 10/20/17 04:14 Dose: 200 mls/hr Admin: 10/20/17 03:44 Dose: 200 mls/hr Infusion: 10/19/17 23:44 Dose: 200 mls/hr Admin: 10/19/17 23:14 Dose: 200 mls/hr Infusion: 10/19/17 20:32 Dose: 200 mls/hr Admin: 10/19/17 20:02 Dose: 200 mls/hr Infusion: 10/19/17 16:57 Dose: 200 mls/hr Admin: 10/19/17 16:27 Dose: 200 mls/hr Infusion: 10/19/17 13:32 Dose: 200 mls/hr Admin: 10/19/17 13:02 Dose: 200 mls/hr Infusion: 10/19/17 09:30 Dose: 200 mls/hr Admin: 10/19/17 09:00 Dose: 200 mls/hr Sodium Chloride (Normal Saline) 1,000 mls @ 100 mls/hr IV ASDIRECTED [facility] Last Admin: 10/23/17 07:14 Dose: 100 mls/hr Infusion: 10/23/17 03:38 Dose: 100 mls/hr Admin: 10/22/17 17:38 Dose: 100 mls/hr Infusion: 10/22/17 14:07 Dose: 100 mls/hr Admin: 10/22/17 04:07 Dose: 100 mls/hr Infusion: 10/22/17 04:06 Dose: 100 mls/hr Admin: 10/21/17 18:06 Dose: 100 mls/hr Infusion: 10/21/17 18:06 Dose: 100 mls/hr Admin: 10/21/17 08:18 Dose: 100 mls/hr Infusion: 10/21/17 06:49 Dose: 100 mls/hr Admin: 10/20/17 20:49 Dose: 100 mls/hr Meropenem 1 gm/ Sodium (Chloride) 100 mls @ 100 mls/hr IV Q8H [facility] Last Admin: 10/23/17 09:58 Dose: 100 mls/hr Infusion: 10/23/17 01:18 Dose: 100 mls/hr Admin: 10/23/17 00:18 Dose: 100 mls/hr Infusion: 10/22/17 18:41 Dose: 100 mls/hr Admin: 10/22/17 17:41 Dose: 100 mls/hr Infusion: 10/22/17 11:38 Dose: 100 mls/hr Admin: 10/22/17 10:38 Dose: 100 mls/hr Infusion: 10/22/17 01:32 Dose: 100 mls/hr Admin: 10/22/17 00:32 Dose: 100 mls/hr Infusion: 10/21/17 19:07 Dose: 100 mls/hr Admin: 10/21/17 18:07 Dose: 100 mls/hr Infusion: 10/21/17 12:00 Dose: 100 mls/hr Admin: 10/21/17 11:00 Dose: 100 mls/hr Insulin Aspart (Novolog) 9 unit SUBCUT TIDAC [facility] Last Admin: 10/23/17 07:56 Dose: Not Given Admin: 10/22/17 17:43 Dose: 9 units Admin: 10/22/17 12:29 Dose: 9 units Admin: 10/22/17 09:12 Dose: Not Given Admin: 10/21/17 16:38 Dose: 9 units Admin: 10/21/17 12:00 Dose: Not Given Admin: 10/21/17 07:58 Dose: 9 units Admin: 10/20/17 18:07 Dose: Admin: 10/20/17 13:42 Dose: Admin: 10/20/17 07:07 Dose: 9 units Admin: 10/19/17 17:17 Dose: 9 units Admin: 10/19/17 12:00 Dose: 9 units Admin: 10/19/17 07:30 Dose: 9 units Admin: 10/18/17 16:41 Dose: 9 units Admin: 10/18/17 12:14 Dose: Admin: 10/18/17 06:37 Dose: 9 units Admin: 10/17/17 17:28 Dose: 9 units Admin: 10/17/17 12:30 Dose: 9 units Insulin Aspart (Novolog) 0 unit SUBCUT ACBREAKFASTANDBED [facility]; Protocol Last Admin: 10/23/17 07:57 Dose: Not Given Insulin Glargine (Lantus Solostar) 25 units SUBCUT DAILY [facility] Last Admin: 10/23/17 09:59 Dose: 25 units Admin: 10/22/17 09:34 Dose: 25 units Ondansetron HCl (Zofran Odt) 4 mg PO Q4H PRN PRN Reason: Nausea/Vomiting Oxycodone HCl (Oxycodone) 5 - 10 mg PO Q3H PRN PRN Reason: Pain Last Admin: 10/23/17 10:18 Dose: 10 mg Admin: 10/23/17 07:18 Dose: 10 mg Admin: 10/22/17 20:35 Dose: 10 mg Admin: 10/22/17 12:32 Dose: 10 mg Admin: 10/22/17 08:28 Dose: 10 mg Admin: 10/22/17 00:24 Dose: 10 mg Admin: 10/21/17 19:56 Dose: 10 mg Admin: 10/21/17 16:37 Dose: 10 mg Admin: 10/21/17 12:01 Dose: 10 mg Admin: 10/21/17 08:15 Dose: 10 mg Admin: 10/21/17 04:03 Dose: 10 mg Admin: 10/20/17 23:34 Dose: 10 mg Admin: 10/20/17 20:46 Dose: 10 mg Admin: 10/20/17 05:53 Dose: 10 mg Admin: 10/19/17 23:14 Dose: 10 mg Admin: 10/19/17 15:37 Dose: 10 mg Admin: 10/19/17 10:01 Dose: 10 mg Admin: 10/19/17 05:01 Dose: 10 mg Admin: 10/18/17 18:28 Dose: 10 mg Admin: 10/18/17 15:08 Dose: 10 mg Admin: 10/18/17 08:46 Dose: 10 mg Admin: 10/18/17 02:52 Dose: 10 mg Admin: 10/17/17 21:57 Dose: 10 mg Admin: 10/17/17 16:31 Dose: 10 mg Admin: 10/17/17 12:45 Dose: 10 mg Admin: 10/17/17 02:45 Dose: 10 mg Admin: 10/16/17 07:13 Dose: 10 mg - Plan Plan (Free Text/Narrative):: Discussed treatment plan with patient. I am concerned over his persistently elevated labs and lack of clinical improvement. I spoke with Dr. Cottrell at [facility] who has agreed to accept patient in transfer. Will plan to transfer today via ground ambulance. Patient agrees with plan.
--- NOTE | 2017-10-23 12:10 | PCM.DCSUM1 ---
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 Developed signs of flexor tenosynovitis last week and was started on antibiotics. He failed to respond and underwent I&D of LLF on 10/14/17. He was admitted to hospital for IV antibiotics following that. He does have a h/o uncontrolled DM and hospitalist consult was obtained to help with management of BS. He failed to respond to treatment and had persistent elevation of his WBC and ESR. He underwent repeat I&D on 10/20/17. Cultures have been negative to date. BS better controlled. Today, labs including WBC and ESR showed elevation. clinical exam showed worsening of swelling along with increased pain with finger and wrist motion. He has been on IV antibiotics which were recommended by Dr. Gutiérrez from [facility]. I did speak with hand surgeon, Dr. Cottrell, at [facility] about treatment options. He did recommend MRI. We are unable to obtain these on weekends here. Due to the lack of imaging combined with worsening clinical picture, I am recommending that he be transferred to a higher level of care. Dr. Cottrell agrees to accept ini transfer. - Discharge Data Discharge Date: 10/23/17 Discharge Disposition: DC/Tfer to Acute Hospital 02 Condition: Fair - Discharge Diagnosis/Problem(s) (1) Tenosynovitis of finger and hand SNOMED Code(s): 942335442 ICD Code: M65.9 - SYNOVITIS AND TENOSYNOVITIS, UNSPECIFIED Status: Acute Priority: High Current Visit: Yes - Patient Summary/Data Operative Procedure(s) Performed: repeat incision and drainage left hand tenosynovitis - infection Consults: Consultations 10/15/17 14:00 Consult to Physician [CONS] Routine 10/15/17 17:38 Consult to Dice Manager [Consult to Diabetic Nurse Specialist] [CONS] Routine - Patient Instructions Diet: NPO Activity: Non Weight Bearing, No Strenuous Activities Driving: Do Not Drive Showering/Bathing: No Showering Wound/Incision Care: Do NOT Change Dressing Notify Provider of: Fever, Increased Pain, Swelling and Redness, Drainage, Nausea and/or Vomiting - Discharge Plan Prescriptions/Med Rec: Clindamycin HCl 300 mg PO Q6H #40 capsule metFORMIN [Glucophage XR] 500 mg PO BIDMEALS #60 tab.er Home Medications: Home Meds Antibiotic 1 tab PO BID 10/14/17 [History] oxyCODONE 5 mg PO ASDIRECTED PRN 10/14/17 [History] Clindamycin HCl 300 mg PO Q6H #40 capsule 10/15/17 [Rx] Insulin Aspart [NovoLOG] 10 unit SUBCUT TIDAC 30 Days pen 10/18/17 [Rx] Insulin Glarg,Human.Rec.Analog [Lantus Solostar] 20 units SUBCUT DAILY 30 Days pen 10/18/17 [Rx] metFORMIN [Glucophage XR] 500 mg PO BIDMEALS #60 tab.er 10/18/17 [Rx] Patient Handouts: Tenosynovitis, Clindamycin capsules, Metformin tablets, Infectious Finger Tenosynovitis Referrals: Maria Isabel Red MD [Primary Care Provider] - 10/25/17 2:30 pm - Discharge Summary/Plan Comment DC Time >30 min.: No - Patient Data Vitals - Most Recent: Last Vital Signs Temp 98 F 10/23/17 08:00 Pulse 96 10/23/17 08:00 Resp 16 10/23/17 08:00 BP 137/89 10/23/17 08:00 Pulse Ox 94 L 10/23/17 08:00 Weight - Most Recent: 95 kg I&O - Last 24 hours: Intake & Output 10/22/17 10/23/17 10/23/17 22:59 06:59 14:59 Intake Total 3189 1398 Output Total 1275 1700 Balance 1914 -302 Lab Results - Last 24 hrs: Laboratory Results - last 24 hr 10/22/17 10/22/17 10/23/17 Range/Units 11:41 16:00 06:05 WBC (4.0-11.0) K/uL RBC (4.50-5.90) M/uL Hgb (13.0-17.0) g/dL Hct (38.0-50.0) % MCV (80.0-98.0) fL MCH (27.0-32.0) pg MCHC (31.0-37.0) g/dL RDW Std Deviation (28.0-62.0) fl RDW Coeff of Juan Alberto (11.0-15.0) % Plt Count (150-400) K/uL MPV (7.40-12.00) fL Nucleated RBC % /100WBC Nucleated RBCs # K/uL ESR (0-14) mm/hr Sodium 133 L (136-148) mmol/L Potassium 4.0 (3.5-5.1) mmol/L Chloride 101 (98-107) mmol/L Carbon Dioxide 25.1 (21.0-32.0) mmol/L BUN 18 (7.0-18.0) mg/dL Creatinine 1.5 H (0.8-1.3) mg/dL Est Cr Clr Drug Dosing 62.86 mL/min Estimated GFR (MDRD) 50.2 ml/min Glucose 125 H (74-106) mg/dL POC Glucose 218 H 179 H (60-110) mg/dL Calcium 8.2 L (8.5-10.1) mg/dL 10/23/17 10/23/17 Range/Units 06:05 07:02 WBC 21.02 H (4.0-11.0) K/uL RBC 3.97 L (4.50-5.90) M/uL Hgb 11.0 L (13.0-17.0) g/dL Hct 33.4 L (38.0-50.0) % MCV 84.1 (80.0-98.0) fL MCH 27.7 (27.0-32.0) pg MCHC 32.9 (31.0-37.0) g/dL RDW Std Deviation 37.9 (28.0-62.0) fl RDW Coeff of Juan Alberto 12 (11.0-15.0) % Plt Count 323 (150-400) K/uL MPV 9.90 (7.40-12.00) fL Nucleated RBC % 0.0 /100WBC Nucleated RBCs # 0 K/uL ESR > 140 H (0-14) mm/hr Sodium (136-148) mmol/L Potassium (3.5-5.1) mmol/L Chloride (98-107) mmol/L Carbon Dioxide (21.0-32.0) mmol/L BUN (7.0-18.0) mg/dL Creatinine (0.8-1.3) mg/dL Est Cr Clr Drug Dosing mL/min Estimated GFR (MDRD) ml/min Glucose (74-106) mg/dL POC Glucose 119 H (60-110) mg/dL Calcium (8.5-10.1) mg/dL ANDRA Results - Last 24 hrs: Microbiology 10/18/17 22:22 Aerobic Blood Culture - Preliminary Blood - Venous - Lab Draw NO GROWTH AFTER 4 DAYS Anaerobic Blood Culture - Preliminary NO GROWTH AFTER 4 DAYS 10/18/17 22:11 Aerobic Blood Culture - Preliminary Blood - Venous NO GROWTH AFTER 4 DAYS Anaerobic Blood Culture - Preliminary NO GROWTH AFTER 4 DAYS 10/20/17 17:00 Gram Stain - Final Bone / Bone Biopsy - Hand, Left Wound Culture - Final No Growth 10/20/17 16:44 Gram Stain - Final Hand, Left Wound Culture - Final No Growth Anaerobic Culture - Final NO ANAEROBES ISOLATED Med Orders - Current: Current Medications Acetaminophen (Tylenol) 650 mg PO Q6H PRN PRN Reason: Fever Last Admin: 10/18/17 21:36 Dose: 650 mg Diphenhydramine HCl (Benadryl) 25 mg PO Q6H PRN PRN Reason: Itching Last Admin: 10/18/17 01:02 Dose: 25 mg Hydromorphone HCl (Dilaudid) 1 mg IVPUSH Q2H PRN PRN Reason: Pain (moderate 4-6) Last Admin: 10/22/17 23:26 Dose: 1 mg Daptomycin 900 mg/ Sodium (Chloride) 18 mls @ 540 mls/hr IV Q24H [facility] Last Admin: 10/22/17 18:49 Dose: 540 mls/hr Penicillin G Potassium 2.5 (millunits/ Dextrose/Water) 100 mls @ 200 mls/hr IV Q4H [facility] Last Admin: 10/23/17 08:48 Dose: 200 mls/hr Sodium Chloride (Normal Saline) 1,000 mls @ 100 mls/hr IV ASDIRECTED [facility] Last Admin: 10/23/17 07:14 Dose: 100 mls/hr Meropenem 1 gm/ Sodium (Chloride) 100 mls @ 100 mls/hr IV Q8H [facility] Last Admin: 10/23/17 09:58 Dose: 100 mls/hr Insulin Aspart (Novolog) 9 unit SUBCUT TIDAC [facility] Last Admin: 10/23/17 11:57 Dose: 9 units Insulin Aspart (Novolog) 0 unit SUBCUT ACBREAKFASTANDBED [facility]; Protocol Last Admin: 10/23/17 07:57 Dose: Not Given Insulin Glargine (Lantus Solostar) 25 units SUBCUT DAILY [facility] Last Admin: 10/23/17 09:59 Dose: 25 units Ondansetron HCl (Zofran Odt) 4 mg PO Q4H PRN PRN Reason: Nausea/Vomiting Oxycodone HCl (Oxycodone) 5 - 10 mg PO Q3H PRN PRN Reason: Pain Last Admin: 10/23/17 10:18 Dose: 10 mg Discontinued Medications Bupivacaine HCl/Epinephrine Bitart (Marcaine 0.25%/Epinephrine 1:200,000) 10 ml INJECT ONETIME ONE Stop: 10/15/17 08:01 Last Admin: 10/15/17 15:14 Dose: Not Given Cefazolin Sodium (Ancef) Confirm Administered Dose 2 gm .ROUTE .STK-MED ONE Stop: 10/15/17 11:54 Fentanyl (Sublimaze) Confirm Administered Dose 250 mcg .ROUTE .STK-MED ONE Stop: 10/15/17 11:54 Fentanyl (Sublimaze) 50 mcg IVPUSH .Q5MIN PRN PRN Reason: Pain Fentanyl (Sublimaze) Confirm Administered Dose 250 mcg .ROUTE .STK-MED ONE Stop: 10/20/17 15:20 Hydromorphone HCl (Dilaudid) Confirm Administered Dose 2 mg .ROUTE .STK-MED ONE Stop: 10/20/17 16:45 Cefazolin Sodium/Dextrose 2 gm (/ Premix) 50 mls @ 100 mls/hr IV ONETIME ONE Stop: 10/15/17 08:29 Last Admin: 10/15/17 15:14 Dose: Not Given Lactated Ringer's (Ringers, Lactated) 1,000 mls @ 125 mls/hr IV ASDIRECTED [facility] Last Admin: 10/20/17 11:37 Dose: 125 mls/hr Bupivacaine HCl/Epinephrine Bitart (Sensorc Mpf 0.25%-Epi 1:[id number]) Confirm Administered Dose 30 mls @ as directed .ROUTE .STK-MED ONE Stop: 10/15/17 07:25 Sodium Chloride (Normal Saline) Confirm Administered Dose 20 mls @ as directed .ROUTE .STK-MED ONE Stop: 10/15/17 11:54 Piperacillin Sod/Tazobactam (Sod 3.375 gm/ Sodium Chloride) 50 mls @ 100 mls/ hr IV Q6H [facility] Last Admin: 10/19/17 05:01 Dose: 100 mls/hr Clindamycin Phosphate 300 mg/ (Premix) 50 mls @ 100 mls/hr IV Q6H [facility] Last Admin: 10/18/17 15:08 Dose: 100 mls/hr Bupivacaine HCl/Epinephrine Bitart (Sensorc Mpf 0.25%-Epi 1:[id number]) Confirm Administered Dose 30 mls @ as directed .ROUTE .STK-MED ONE Stop: 10/20/17 15:55 Meropenem 1 gm/ Sodium (Chloride) 100 mls @ 100 mls/hr IV Q8H [facility] Last Admin: 10/21/17 11:07 Dose: Not Given Ibuprofen (Motrin) 800 mg PO Q6H PRN PRN Reason: Pain Last Admin: 10/17/17 00:55 Dose: 800 mg Insulin Aspart (Novolog) 7 unit SUBCUT TIDAC [facility] Last Admin: 10/17/17 06:57 Dose: 7 units Insulin Glargine (Lantus Solostar) 15 units SUBCUT DAILY [facility] Last Admin: 10/16/17 09:28 Dose: 15 units Insulin Glargine (Lantus Solostar) 17 units SUBCUT DAILY [facility] Last Admin: 10/17/17 08:34 Dose: 17 units Insulin Glargine (Lantus Solostar) 2 units SUBCUT ONETIME ONE Stop: 10/16/17 11:40 Last Admin: 10/16/17 12:35 Dose: 2 units Insulin Glargine (Lantus Solostar) 19 units SUBCUT DAILY [facility] Last Admin: 10/19/17 08:11 Dose: 19 units Insulin Glargine (Lantus Solostar) 20 units SUBCUT DAILY [facility] Last Admin: 10/21/17 08:22 Dose: 20 units Ketorolac Tromethamine (Toradol) Confirm Administered Dose 30 mg .ROUTE .STK- MED ONE Stop: 10/15/17 11:54 Lidocaine (Xylocaine-Mpf 2%) Confirm Administered Dose 5 ml .ROUTE .STK-MED ONE Stop: 10/15/17 11:51 Lidocaine (Xylocaine-Mpf 2%) Confirm Administered Dose 5 ml .ROUTE .STK-MED ONE Stop: 10/20/17 15:20 Midazolam HCl (Versed 1 Mg/Ml) Confirm Administered Dose 2 mg .ROUTE .STK-MED ONE Stop: 10/15/17 11:53 Midazolam HCl (Versed 1 Mg/Ml) Confirm Administered Dose 2 mg .ROUTE .STK-MED ONE Stop: 10/20/17 15:20 Morphine Sulfate (Morphine) 2 mg IVPUSH Q2H PRN PRN Reason: Pain Last Admin: 10/15/17 22:58 Dose: 2 mg Morphine Sulfate (Morphine) 2 - 4 mg IVPUSH Q2H PRN PRN Reason: Pain Last Admin: 10/20/17 19:31 Dose: 4 mg Ondansetron HCl (Zofran) Confirm Administered Dose 4 mg .ROUTE .STK-MED ONE Stop: 10/15/17 11:54 Ondansetron HCl (Zofran) Confirm Administered Dose 4 mg .ROUTE .STK-MED ONE Stop: 10/20/17 15:19 Oxycodone HCl (Oxycodone) 5 mg PO Q3H PRN PRN Reason: Pain Last Admin: 10/15/17 23:43 Dose: 5 mg Propofol (Diprivan 20 Ml) Confirm Administered Dose 200 mg .ROUTE .STK-MED ONE Stop: 10/15/17 11:53 Propofol (Diprivan 20 Ml) Confirm Administered Dose 200 mg .ROUTE .STK-MED ONE Stop: 10/15/17 14:17 Propofol (Diprivan 20 Ml) Confirm Administered Dose 200 mg .ROUTE .STK-MED ONE Stop: 10/20/17 15:20 Propofol (Diprivan 20 Ml) Confirm Administered Dose 200 mg .ROUTE .STK-MED ONE Stop: 10/20/17 16:35 Propofol (Diprivan 20 Ml) Confirm Administered Dose 200 mg .ROUTE .STK-MED ONE Stop: 10/20/17 17:00
== END 2017-10-23 14:15 | DRG 558 ==
LOC: MW.SDS 11:29 → INTOOBSV 15:11 → MW.MS 15:11 → OBSVTOIN 10-17 19:56
PROVIDERS: ADMIT Plastic Surgery; ATTEND Plastic Surgery
PROC: 0X9K0ZZ Drainage of Left Hand, Open Approach (ICD-10-PCS; principal; 2017-10-20)
DX: M65.9 Synovitis and tenosynovitis, unspecified (principal); N17.9 Acute kidney failure, unspecified; E87.1 Hypo-osmolality and hyponatremia; E11.22 Type 2 diabetes mellitus with diabetic chronic kidney disease; N18.9 Chronic kidney disease, unspecified; E11.65 Type 2 diabetes mellitus with hyperglycemia; R03.0 Elevated blood-pressure reading, without diagnosis of hypertension; E78.00 Pure hypercholesterolemia, unspecified; I10 Essential (primary) hypertension; Z91.14 Patient's other noncompliance with medication regimen; Z79.899 Other long term (current) drug therapy; Z89.022 Acquired absence of left finger(s); Z87.891 Personal history of nicotine dependence; Z79.84 Long term (current) use of oral hypoglycemic drugs
CPT/HCPCS: 00400; 36415; 36600; 73630-26-LT; 73630-LT; 80048; 80053; 81001; 82009; 82044; 82570; 82803; 82962; 83036; 83605; 83735; 84300; 85025; 85027; 85652; 87040; 87070; 87075; 87205; 87389; 96374; 96376; A9270-GY; G0378; J0690; J0878; J1170; J1815-GY ×2; J1885; J2185; J2250; J2270; J2405; J2540; J2543; J2704; J3010; J7030; J7040; J7050; J7060; J7120

== ENCOUNTER 2019-12-15 21:30 | Emergency (ER) | payer MEDICAID ==
--- NOTE | 2019-12-15 21:52 | EDM.PDOC ---
ED HPI GENERAL MEDICAL PROBLEM - General Time Seen by Provider: 12/15/19 21:44 - History of Present Illness INITIAL COMMENTS - FREE TEXT/NARRATIVE: 49-year-old male insulin-dependent diabetic presenting requesting insulin prescription refill as his house is under police lockdown and he cannot access his insulin prescription. Patient with no complaints. I completed a quick [id number] evaluation of this patient, however the patient is not fully registered as an emergency department patient this is only for a prescription refill. - Related Data Allergies Allergy/AdvReac Type Severity Reaction Status Date / Time No Known Allergies Allergy Verified 10/15/17 14:31 Home Meds: Home Meds Antibiotic 1 tab PO BID 10/14/17 [History] oxyCODONE 5 mg PO ASDIRECTED PRN 10/14/17 [History] Clindamycin HCl 300 mg PO Q6H #40 capsule 10/15/17 [Rx] Insulin Aspart [NovoLOG] 10 unit SUBCUT TIDAC 30 Days pen 10/18/17 [Rx] Insulin Glarg,Human.Rec.Analog [Lantus Solostar] 20 units SUBCUT DAILY 30 Days pen 10/18/17 [Rx] metFORMIN [Glucophage XR] 500 mg PO BIDMEALS #60 tab.er 10/18/17 [Rx] Insulin Aspart [NovoLOG] 20 unit SQ WITHMEALSANDBED #2 pen 12/15/19 [Rx] Past Medical History HEENT History: Reports: None Cardiovascular History: Reports: High Cholesterol, Hypertension Other Cardiovascular History: hypertension in the past, not on medication Respiratory History: Gastrointestinal History: Reports: Other (See Below) Other Gastrointestinal History: occasional heartburn - denies any today Genitourinary History: Reports: None Musculoskeletal History: Reports: Arthritis Neurological History: Psychiatric History: Endocrine/Metabolic History: Reports: Diabetes, Type II, Other (See Below) Other Endocrine/Metabolic History: borderline diabetic Hematologic History: Immunologic History: Oncologic (Cancer) History: Dermatologic History: Reports: Other (See Below) Other Dermatologic History: presently has infection left hand after ampuation d/t frostbite - Infectious Disease History Infectious Disease History: Reports: None - Past Surgical History Head Surgeries/Procedures: Reports: None Male Surgical History: Reports: None Musculoskeletal Surgical History: Reports: Other (See Below) Other Musculoskeletal Surgeries/Procedures:: 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 Social & Family History - Caffeine Use Caffeine Use: Reports: Coffee, Other ED ROS GENERAL - Review of Systems Review Of Systems: See Below (No symptoms) ED EXAM, GENERAL - Physical Exam Exam: See Below General Appearance: Alert, No Apparent Distress Respiratory/Chest: No Respiratory Distress Neurological: Alert, Oriented Course - Vital Signs Text/Narrative:: Patient NovoLog pen was sent to [facility]. I also called them to verify receipt of the transmitted prescription as they are closing shortly and I would like them to fill this soon as possible for this patient. Departure - Departure Time of Disposition: 21:48 Disposition: Home, Self-Care 01 Clinical Impression: Medication refill - Discharge Information
== END 2019-12-15 21:42 ==
LOC: MW.ED 21:30
DX: E11.9 Type 2 diabetes mellitus without complications (principal); Z76.0 Encounter for issue of repeat prescription
CPT/HCPCS: 99281; 99282

== ENCOUNTER 2022-03-08 21:51 | Emergency (ER) | payer MEDICARE, MEDICAID ==
[2022-03-08 22:59] LABS: CARBON DIOXIDE,CO2 25.9 mmol/L (21.0-32.0); POTASSIUM,K 5.3 mmol/L (3.5-5.1)
[2022-03-08] MEDS ORDERED: Lactated Ringers 1,000 ML IV STA (23:14)
[2022-03-08] MEDS ORDERED: Magnesium Oxide 400 MG Tab PO ONE (23:14)
[2022-03-08] MEDS ORDERED: Acetaminophen 500 MG Tab PO ONE (23:30)
== END 2022-03-09 00:57 | disposition home or self-care (01) ==
LOC: MW.ED 21:51
DX: E86.0 Dehydration (principal); E83.42 Hypomagnesemia; I12.9 Hypertensive chronic kidney disease with stage 1 through stage 4 chronic kidney disease, or unspecified chronic kidney disease; E11.22 Type 2 diabetes mellitus with diabetic chronic kidney disease; N18.9 Chronic kidney disease, unspecified; E11.65 Type 2 diabetes mellitus with hyperglycemia; E46 Unspecified protein-calorie malnutrition
CPT/HCPCS: 36415; 80053; 82550; 83735; 85025; 96360; 99284; A9270; J7120; U0002

== ENCOUNTER 2022-05-14 14:03 | Emergency (ER) | payer MEDICARE, MEDICAID ==
[2022-05-14 15:43] LABS: CARBON DIOXIDE,CO2 24.9 mmol/L (21.0-32.0); POTASSIUM,K 4.1 mmol/L (3.5-5.1)
== END 2022-05-14 16:22 | disposition home or self-care (01) ==
LOC: MW.ED 14:03
DX: I12.9 Hypertensive chronic kidney disease with stage 1 through stage 4 chronic kidney disease, or unspecified chronic kidney disease (principal); N18.9 Chronic kidney disease, unspecified; E11.9 Type 2 diabetes mellitus without complications; I45.10 Unspecified right bundle-branch block
CPT/HCPCS: 36415; 80053; 93005; 99283

== ENCOUNTER 2022-08-18 13:48 | Emergency (ER) | payer MEDICARE, MEDICAID ==
[2022-08-18] MEDS ORDERED: Sodium Chloride 0.9% 10 ML Syringe FLUSH PRN (13:59)
[2022-08-18] MEDS ORDERED: Sodium Chloride 0.9% 2.5 ML Syringe FLUSH PRN (13:59)
[2022-08-18 14:57] LABS: CARBON DIOXIDE,CO2 18.4 mmol/L (21.0-32.0); POTASSIUM,K 4.2 mmol/L (3.5-5.1)
[2022-08-18 14:59] LABS: HEMOGLOBIN A1C 6.6 %
[2022-08-18] MEDS ORDERED: Lisinopril 10 MG Tab PO ONE (16:39)
== END 2022-08-18 19:06 ==
LOC: MW.ED 13:48
DX: I13.0 Hypertensive heart and chronic kidney disease with heart failure and stage 1 through stage 4 chronic kidney disease, or unspecified chronic kidney disease (principal); E11.22 Type 2 diabetes mellitus with diabetic chronic kidney disease; N18.9 Chronic kidney disease, unspecified; I50.9 Heart failure, unspecified; N17.9 Acute kidney failure, unspecified; D63.1 Anemia in chronic kidney disease; Z91.14 Patient's other noncompliance with medication regimen
CPT/HCPCS: 36415; 70450; 70486; 80053; 81001; 82009; 83036; 83880; 85025; 85610; 93005; 99285; A9270; J3490; 93010; 99284

== ENCOUNTER 2022-08-23 17:46 | Emergency (ER) | payer MEDICARE, MEDICAID ==
[2022-08-23] MEDS ORDERED: Labetalol 100 MG/20 ML MDV IVPUSH ONE (18:33)
[2022-08-23] MEDS ORDERED: Furosemide 40 MG/4 ML VIAL IVPUSH ONE (18:35)
[2022-08-23] MEDS ORDERED: Cyclobenzaprine 10 MG Tab PO ONE (18:35)
[2022-08-23 19:12] LABS: CORONAVIRUS COVID-19 NAA NEGATIVE (NEGATIVE); INFLUENZA A NAA NEGATIVE (NEGATIVE); INFLUENZA B NAA NEGATIVE (NEGATIVE)
[2022-08-23 19:13] LABS: CARBON DIOXIDE,CO2 21.2 mmol/L (21.0-32.0); POTASSIUM,K 4.4 mmol/L (3.5-5.1)
[2022-08-23] MEDS ORDERED: Calcium Acetate 667 MG Cap PO ONE (19:25)
[2022-08-23] MEDS ORDERED: Magnesium Oxide 400 MG Tab PO ONE (19:25)
[2022-08-23] MEDS ORDERED: Calcium Carbonate 500 MG Tab.Chew PO ONE (19:30)
== END 2022-08-23 19:45 | disposition home or self-care (01) ==
LOC: MW.ED 17:46
DX: I12.9 Hypertensive chronic kidney disease with stage 1 through stage 4 chronic kidney disease, or unspecified chronic kidney disease (principal); E11.22 Type 2 diabetes mellitus with diabetic chronic kidney disease; N18.9 Chronic kidney disease, unspecified; Z20.822 Contact with and (suspected) exposure to COVID-19
CPT/HCPCS: 0240U; 36415; 71045; 71045-26; 80053; 83735; 84484; 85025; 93005; 93010; 96374; 96375; 99284; 99285-25; A9270-GY; J1940; J3490

== ENCOUNTER 2022-08-23 22:31 | Emergency (ER) | payer MEDICARE, MEDICAID ==
[2022-08-23] MEDS ORDERED: Magnesium Sulfate (4.06 MEQ/ML) 5 GM/10 ML SDV IV STA (22:34)
[2022-08-23] MEDS ORDERED: Magnesium Sulfate/Water 4 GM in Premix Bag 1 BAG IV ONE ×4 (22:41)
== END 2022-08-24 01:00 | disposition home or self-care (01) ==
LOC: MW.ED 22:31
DX: I12.9 Hypertensive chronic kidney disease with stage 1 through stage 4 chronic kidney disease, or unspecified chronic kidney disease (principal); E11.22 Type 2 diabetes mellitus with diabetic chronic kidney disease; N18.9 Chronic kidney disease, unspecified; M19.90 Unspecified osteoarthritis, unspecified site; Z79.899 Other long term (current) drug therapy
CPT/HCPCS: 0240U; 36415; 71045; 80053; 83735; 84484; 85025; 93005; 96365; 96366; 99283; A9270; J1940; J3475; J3490

== ENCOUNTER 2022-09-12 22:58 | Emergency (ER) | payer MEDICARE, MEDICAID ==
[2022-09-12] MEDS ORDERED: Lactated Ringers 1,000 ML IV SCH (23:15)
[2022-09-13] LABS: CARBON DIOXIDE,CO2 30.2 mmol/L (21.0-32.0); POTASSIUM,K 5.7 mmol/L (3.5-5.1)
[2022-09-13] MEDS ORDERED: Insulin Regular, Human 100 Units/ML 10 ML Vial IVPUSH ONE (00:30)
[2022-09-13] MEDS ORDERED: Glucagon,Human Recombinant 1 MG Vial IM PRN (00:30)
[2022-09-13] MEDS ORDERED: Albuterol 0.083% 2.5 MG/3 ML Neb Soln NEB ONE (00:30)
[2022-09-13] MEDS: 50% Dextrose in Water 50 ML Syringe IVPUSH PRN (02:05)
[2022-09-13] MEDS ORDERED: Lactated Ringers 1,000 ML IV SCH (03:15)
== END 2022-09-13 05:26 ==
LOC: MW.ED 22:58
DX: I12.0 Hypertensive chronic kidney disease with stage 5 chronic kidney disease or end stage renal disease (principal); E11.22 Type 2 diabetes mellitus with diabetic chronic kidney disease; E11.21 Type 2 diabetes mellitus with diabetic nephropathy; N18.6 End stage renal disease; Z99.2 Dependence on renal dialysis
CPT/HCPCS: 36415; 80053; 82947; 83690; 83735; 85025; 93005; 96361; 96374; 99291; J1815; J7120; 93010; J3490; J7620-GY

== ENCOUNTER 2022-09-20 10:02 | Emergency (ER) | payer MEDICARE, MEDICAID | END 2022-09-20 10:53 | disposition left against medical advice (07) | LOC: MW.ED 10:02 | DX: Z53.21 Procedure and treatment not carried out due to patient leaving prior to being seen by health care provider (principal) ==